=== PATIENT | female | born 1940 | race Caucasian/White ===

== ENCOUNTER 2023-11-11 10:34 | Outpatient (REF) | payer MEDICARE, SELFPAY ==
[2023-11-11 11:47] LABS: INTERNATIONAL NORM RATIO 1.6 (0.9-1.1); Prothrombin Time 19.8 SEC (11.1-13.3)
== END 2023-11-11 10:35 | disposition home or self-care (01) ==
LOC: HO.LAB 10:34
PROVIDERS: Visit Provider Internal Medicine
DX: I27.82 Chronic pulmonary embolism (principal)
CPT/HCPCS: 36415; 85610

== ENCOUNTER 2023-11-25 12:15 | Outpatient (REF) | payer MEDICARE, SELFPAY ==
[2023-11-25 12:51] LABS: INTERNATIONAL NORM RATIO 2.8 (0.9-1.1); Prothrombin Time 33.9 SEC (11.1-13.3)
== END 2023-11-25 12:16 | disposition home or self-care (01) ==
LOC: HO.LABR 12:15
PROVIDERS: Visit Provider Internal Medicine
DX: I27.82 Chronic pulmonary embolism (principal); Z79.01 Long term (current) use of 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
CPT/HCPCS: 36415; 85610

== ENCOUNTER 2023-12-12 06:15 | Outpatient (REF) | payer MEDICARE, SELFPAY ==
[2023-12-12 06:32] LABS: MANUAL DIFF FLAG NO
[2023-12-12 07:10] LABS: Basophils Absolute Auto 0.1 X10*3/uL (0.0-0.2); Basophils Percent Auto 0.8 % (0-2); Eosinophils Absolute Auto 0.2 X10*3/uL (0.0-0.4); Eosinophils Percent Auto 2.8 % (0-4); Hematocrit 47.4 % (37.0-47.0); Hemoglobin 15.8 g/dl (12.0-16.0); Imm Gran Abs Auto 0.02 X10*3/uL (0.00-0.03); Imm Gran Pct Auto 0.3 % (0.0-0.4); Lymphocytes Absolute Auto 2.4 X10*3/uL (1.2-4.9); Lymphocytes Percent Auto 39.7 % (20-40); Mean Corpuscular HGB Conc 33.3 g/dl (31.0-35.0); Mean Corpuscular Hemoglobin 30.6 pg (27.0-33.0); Mean Corpuscular Volume 91.9 fL (80.0-98.0); Mean Platelet Volume 12.8 fL (9.4-12.3); Monocytes Absolute Auto 0.6 X10*3/uL (0.1-1.2); Monocytes Percent Auto 9.3 % (2-11); Neutrophils Absolute Auto 2.9 x10*3/uL (2.0-8.3); Neutrophils Percent Auto 47.1 % (45-73); Platelet Count 194 X10*3/uL (160-400); Red Blood Count 5.16 X10*6/uL (4.20-5.50); Red Cell Distribution Width 13.6 % (11.0-16.0); White Blood Count 6.2 X10*3/uL (4.8-10.8)
[2023-12-12 07:16] LABS: INTERNATIONAL NORM RATIO 1.4 (0.9-1.1); Prothrombin Time 17.2 SEC (11.1-13.3)
[2023-12-12 07:47] LABS: Alanine Aminotransferase 18 U/L (0-31); Albumin Level 4.1 g/dL (3.5-5.0); Alkaline Phosphatase 90 U/L (39-117); Anion Gap 10 (12-20); Aspartate Amino Transferase 27 U/L (5-31); Bilirubin Total 0.7 mg/dL (0.0-1.0); Blood Urea Nitrogen 14 mg/dL (9-16); Calcium 9.3 mg/dL (8.4-10.2); Carbon Dioxide 31 mmol/L (22-29); Chloride 105 mmol/L (96-108); Cholesterol 185 mg/dL (<200); Estimated Glomerular Filt Rate > 60; Glucose Random 91 mg/dL (60-115); HDL Cholesterol 54 mg/dL (>40); LDL Cholesterol Calculated 105 mg/dL (<100); Potassium 4.5 mmol/L (3.3-5.1); Sodium 141 mmol/L (135-145); Total Protein 6.9 g/dL (6.5-8.0); Triglycerides 134 mg/dL (<150)
[2023-12-12 08:03] LABS: Thyroid Stimulating Hormone 1.87 uIU/mL (0.32-4.0)
== END 2023-12-12 06:16 | disposition home or self-care (01) ==
LOC: HO.LAB 06:15
PROVIDERS: Absent Provider Internal Medicine; PCP Family Medicine; Visit Provider Nurse Practitioner
DX: E03.9 Hypothyroidism, unspecified (principal); Z86.711 Personal history of pulmonary embolism; R60.0 Localized edema
CPT/HCPCS: 36415; 80053; 80061; 84443; 85025; 85610

== ENCOUNTER 2023-12-23 10:23 | Outpatient (AMB) | payer MEDICARE, SELFPAY ==
--- NOTE | 2023-12-23 11:03 | MHC.OFFVISCO ---
Intake Intake Visit Reasons: Anticoagulation Employee Relations Representative Required: No Allergies Benzodiazepines Adverse Reaction (Severe, Verified 12/23/23 10:38) Drowsy codeine Adverse Reaction (Severe, Verified 12/23/23 10:38) Drowsy loratadine Adverse Reaction (Mild, Verified 12/23/23 10:38) Nausea Medication List - Last Reconciled 12/23/23 by Chasity Grullon, RN amlodipine 5 mg PO DAILY calcium carb-vit [id number] caps PO DAILY levothyroxine 112 mcg PO DAILY simvastatin 20 mg PO QPM warfarin 5 mg See Protocol PO DAILY Is last menstrual period known: No Post menopausal: Yes Patient : No Anti-Coag Initial Assessment Social Hx Patient Tobacco Use Status: Former Tobacco user Tobacco use type: Cigarette Smoking packs per day: 3 alcohol intake: current Alcohol intake frequency: 0-2 drinks per day Housing: House Housing Other:: lives with son current occupation: [employer] current occupational exposures/hazards: Yes Fall risk assessment: 1 Fall in past year Cardiovascular Hx: HTN Lung Disease HX: DVT/PE Endocrine Hx: Thyroid Disease Musculoskeletal Hx: Arthritis, Osteoporosis and Gout Blood Disorder Hx: Hyperlipidemia Hx: Bladder Disorders Cancer HX: No Psych. Illness/Depression: No Is last menstrual period known: No Post menopausal: Yes Patient : No Surgeries: Pulmonary Thrombo-enarectomy [place] Filter Appendectomy Cholecystectomy Bilat Hand Surgery (for arthritis) Tubal Ligation Anti-Coag. Education Record Teaching Recipient: Patient What is the easiest way to learn: Reading, Listening, Picture and Education Packet Employee Relations Representative Required: No Readiness To Learn: Excellent Teaching Methods: Discussion, Handout, Protocol and Teach Back Response to Teaching: Verbalize Understanding Re-Education needs: Reinforce Content Education Intervention/Brief Description of Teaching 1. Able to state reason for taking Warfarin: Yes 2. Able to state Pain Management techniques: Yes 3. Able to state action of Warfarin.: Yes Able to state current dose, pill color, how and when Warfarin to be taken: Yes Able to identify signs of bleeding &/or clotting: Yes 4. Able to identify need to keep diet consistent in regard to vitamin K intake: Yes Able to state restriction on alcohol: Yes 5. Able to state need for compliance with PT/INR testing: Yes Describes rationale for carrying ID and wearing Medic Alert bracelet: Yes Patient instructed to monitor for excess bruising or signs/symptoms of clotting or bleeding: Yes 6. Able to state that there are drugs that interact with Warfin: Yes 7. Able to state the need to seek medical attention when illness/injury occur.: Yes Describes the need to avoid activities with high risk of injury: Yes 8. Able to state duration of treatment: Yes 9. Demonstrates understanding of notifying all providers of pending dental surgical, or other invasive procedures: Yes 10. Able to state Home Care instructions Questionnaires HAS-BLED Does the patient had uncontrolled Hypertension?: No Does the patient have renal disease?: No Does the patient have liver disease?: No Does the patient have a history of stroke?: No Has the patient had major bleeding or predisposition to bleeding?: No Does the patient have labile INRs?: No Is the patient over 65 years of age?: Yes Is the patient on medications that gives them a predisposition to bleeding?: Yes Does the patient use alcohol?: Yes HAS-BLED Score: 3 CHADSVASC Age: 75 or over Gender: Female Does the patient have a history of CHF?: No Does the patient have a history of Hypertension?: Yes Does the patient have a history of Stroke/TIA/Thromboembolism?: No Does the patient have a history of Vascular Disease (prior [place], PAD or aortic plaque)?: No Does the patient have a history of Diabetes?: No CHADS VACS Score: 4 Tucker Prediction Score Rsk VTE Active Cancer: No Previous VTE, excluding superficial vein thrombosis: Yes Reduced mobility: Yes Already known Thrombophilic Condition: Yes With-in last month Trauma and/or Surgery: No Elderly 70 year or older: Yes Heart and/or Respiratory Failure: No Acute Myocardial infarction and/or Ischemic Stroke: No Acute Infection and/or Rheumatologic Disorder: No Obesity (BMI 30 or greater): No Ongoing Hormonal Treatment: No Score: 10 Tucker Score less than 4; Low Risk of VTE Tucker Score 4 or greater; High Risk of VTE Coding Diagnoses Current use of anticoagulant therapy Z79.01 Results AMB INR Fingerstick AMB INR Fingerstick 3.1 Last Edit by Chasity Grullon RN on 12/23/23 11:41 interface delay Assessment & Plan Assessment & Plan (1) Current use of anticoagulant therapy: Code(s): 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
[2023-12-23 11:42] LABS: Prothrombin Time Whole Bld POC 37.5 sec (11.1-13.5); ~PT, ~INR - Anti Coag Clinic 3.1 (0.9-1.1)
--- NOTE | 2023-12-23 13:31 | MHC.OFFVISCO ---
Intake Intake Visit Reasons: Anticoagulation Verification Rep Required: No Allergies Benzodiazepines Adverse Reaction (Severe, Verified 12/23/23 10:38) Drowsy codeine Adverse Reaction (Severe, Verified 12/23/23 10:38) Drowsy loratadine Adverse Reaction (Mild, Verified 12/23/23 10:38) Nausea Medication List - Last Reconciled 12/23/23 by Chasity Grullon, RN amlodipine 5 mg PO DAILY calcium carb-vit [id number] caps PO DAILY levothyroxine 112 mcg PO DAILY simvastatin 20 mg PO QPM warfarin 5 mg See Protocol PO DAILY Is last menstrual period known: No Post menopausal: Yes Patient : No Nursing Note [facility] to [facility]. 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 She went to [facility] for pulmonary thromboendarterectomy which was a success. Also had IVC filter inserted. She is very familiar with warfarin but educational packet reviewed and given to pt. Initial assessment done with Joann Chaves and Tucker risk assessment tools completed. Pt recently moved to this area from [facility] where she followed [facility]. She now lives with her son. She has another son she cares for. He is developmentally delayed. 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 She travels to [place] once a week and drives herself. Lab draw INR on 12/09/23 was 1.4 and she was dosed by [facility] Today's INR is 3.1 Dose: She will continue the present dose of 2.5mg X 5 days and 5mg X2 days Next visit: 1 week Pt understands instructions with read back done Anti-Coag Initial Assessment Social Hx Patient Tobacco Use Status: Former Tobacco user Tobacco use type: Cigarette Smoking packs per day: 3 alcohol intake: current Alcohol intake frequency: 0-2 drinks per day Housing: House Housing Other:: lives with son, recently moved to this area from [facility] current occupation: has [employer], [facility] and another location in [place] current occupational exposures/hazards: Yes Fall risk assessment: 1 Fall in past year Cardiovascular Hx: HTN Lung Disease HX: DVT/PE Endocrine Hx: Thyroid Disease Musculoskeletal Hx: Arthritis, Osteoporosis and Gout Blood Disorder Hx: Hyperlipidemia Hx: Bladder Disorders Cancer HX: No Psych. Illness/Depression: No Is last menstrual period known: No Post menopausal: Yes Patient : No Surgeries: Pulmonary Thromboendarterectomy [place] filter Appendectomy Cholecystectomy Bilat Hand Surgery R/T arthritis Tubal Ligation Anti-Coag. Education Record Teaching Recipient: Patient What is the easiest way to learn: Reading, Listening, Picture, Demonstration, Education Packet and Other: Barriers to Learning Identified: Physical Physical: Vision If Barriers are identified, describe method to overcome: wears glasses Verification Rep Required: No Readiness To Learn: Excellent Teaching Methods: Discussion, Handout, Protocol and Teach Back Response to Teaching: Verbalize Understanding Re-Education needs: Reinforce Content Education Intervention/Brief Description of Teaching 1. Able to state reason for taking Warfarin: Yes 2. Able to state Pain Management techniques: Yes 3. Able to state action of Warfarin.: Yes Able to state current dose, pill color, how and when Warfarin to be taken: Yes Able to identify signs of bleeding &/or clotting: Yes 4. Able to identify need to keep diet consistent in regard to vitamin K intake: Yes Able to state restriction on alcohol: Yes 5. Able to state need for compliance with PT/INR testing: Yes Describes rationale for carrying ID and wearing Medic Alert bracelet: Yes Patient instructed to monitor for excess bruising or signs/symptoms of clotting or bleeding: Yes 6. Able to state that there are drugs that interact with Warfin: Yes 7. Able to state the need to seek medical attention when illness/injury occur.: Yes Describes the need to avoid activities with high risk of injury: Yes 8. Able to state duration of treatment: Yes 9. Demonstrates understanding of notifying all providers of pending dental surgical, or other invasive procedures: Yes 10. Able to state Home Care instructions Questionnaires HAS-BLED Does the patient had uncontrolled Hypertension?: No Does the patient have renal disease?: No Does the patient have liver disease?: No Does the patient have a history of stroke?: No Has the patient had major bleeding or predisposition to bleeding?: No Does the patient have labile INRs?: No Is the patient over 65 years of age?: Yes Is the patient on medications that gives them a predisposition to bleeding?: Yes Does the patient use alcohol?: Yes HAS-BLED Score: 3 CHADSVASC Age: 75 or over Gender: Female Does the patient have a history of CHF?: No Does the patient have a history of Hypertension?: Yes Does the patient have a history of Stroke/TIA/Thromboembolism?: No Does the patient have a history of Vascular Disease (prior [place], PAD or aortic plaque)?: No Does the patient have a history of Diabetes?: No CHADS VACS Score: 4 Tucker Prediction Score Rsk VTE Active Cancer: No Previous VTE, excluding superficial vein thrombosis: Yes Reduced mobility: No Already known Thrombophilic Condition: Yes With-in last month Trauma and/or Surgery: No Elderly 70 year or older: Yes Heart and/or Respiratory Failure: No Acute Myocardial infarction and/or Ischemic Stroke: No Acute Infection and/or Rheumatologic Disorder: No Obesity (BMI 30 or greater): No Ongoing Hormonal Treatment: No Score: 7 Tucker Score less than 4; Low Risk of VTE Tucker Score 4 or greater; High Risk of VTE Coding Level of Care Code New Patient Level 2 Diagnoses Current use of anticoagulant therapy Z79.01 Results AMB INR Fingerstick AMB INR Fingerstick 3.1 Last Edit by Chasity Grullon RN on 12/23/23 11:41 interface delay Assessment & Plan Assessment & Plan (1) Current use of anticoagulant therapy: Code(s): 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
== END 2023-12-23 13:57 | disposition home or self-care (01) ==
LOC: HO.ACS 10:23
PROVIDERS: PCP Family Medicine; Visit Provider Internal Medicine
DX: Z79.01 Long term (current) use of 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 (principal)

== ENCOUNTER → 2023-12-23 10:23 | Outpatient (BNVA) | payer MEDICARE, SELFPAY | PROVIDERS: PCP Family Medicine; Visit Provider Internal Medicine | DX: I26.99 Other pulmonary embolism without acute cor pulmonale (principal); Z79.01 Long term (current) use of 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; Z51.81 Encounter for therapeutic drug level monitoring | CPT/HCPCS: 85610; 99202 ==

== ENCOUNTER 2023-12-31 10:35 | Outpatient (AMB) | payer MEDICARE, SELFPAY ==
[2023-12-31 10:47] LABS: Prothrombin Time Whole Bld POC 27.4 sec (11.1-13.5); ~PT, ~INR - Anti Coag Clinic 2.3 (0.9-1.1)
--- NOTE | 2023-12-31 10:54 | MHC.OFFVISCO ---
Intake Intake Visit Reasons: Anticoagulation Allergies Benzodiazepines Adverse Reaction (Severe, Verified 12/31/23 10:41) Drowsy codeine Adverse Reaction (Severe, Verified 12/31/23 10:41) Drowsy loratadine Adverse Reaction (Mild, Verified 12/31/23 10:41) Nausea Medication List - Last Reconciled 12/31/23 by Aleshia Bradley RN amlodipine 5 mg PO DAILY calcium carb-vit [id number] caps PO DAILY levothyroxine 112 mcg PO DAILY simvastatin 20 mg PO QPM warfarin 5 mg See Protocol PO DAILY Nursing Note INR: 2.3 in therapeutic range Medications and supplements reviewed No changes in health, diet, medications, or supplements, Denies any signs and symptoms of bleeding or bruising or clotting. Bleeding, bruising, clotting discussed Nutritional guidance given Dose: KEEP SAME DOSE 5MG X 2 DAYS/ 2.5MG X 5 DAYS F/U INR: 3 WEEKS Patient verbalizes understanding of instructions given Anti-Coag Initial Assessment Social Hx Patient Tobacco Use Status: Former Tobacco user Tobacco use type: Cigarette Smoking packs per day: 3 alcohol intake: current Alcohol intake frequency: 0-2 drinks per day Cardiovascular Hx: HTN Lung Disease HX: DVT/PE Endocrine Hx: Thyroid Disease Musculoskeletal Hx: Arthritis, Osteoporosis and Gout Blood Disorder Hx: Hyperlipidemia Hx: Bladder Disorders Cancer HX: No Psych. 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
== END 2023-12-31 10:57 | disposition home or self-care (01) ==
LOC: HO.ACS 10:35
PROVIDERS: PCP Family Medicine; Visit Provider Internal Medicine
DX: Z79.01 Long term (current) use of 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 (principal)

== ENCOUNTER → 2023-12-31 10:35 | Outpatient (BNVA) | payer MEDICARE, SELFPAY | PROVIDERS: PCP Family Medicine; Visit Provider Internal Medicine | DX: I26.99 Other pulmonary embolism without acute cor pulmonale (principal); Z79.01 Long term (current) use of 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; Z51.81 Encounter for therapeutic drug level monitoring | CPT/HCPCS: 85610; 99211 ==

== ENCOUNTER 2024-01-20 10:06 | Outpatient (AMB) | payer MEDICARE, SELFPAY ==
--- NOTE | 2024-01-20 10:23 | MHC.OFFVISCO ---
Intake Intake Visit Reasons: Anticoagulation Allergies Benzodiazepines Adverse Reaction (Severe, Verified 01/20/24 10:18) Drowsy codeine Adverse Reaction (Severe, Verified 01/20/24 10:18) Drowsy loratadine Adverse Reaction (Mild, Verified 01/20/24 10:18) Nausea Medication List - Last Reconciled 01/20/24 by Katie Mao, RN amlodipine 5 mg PO DAILY calcium carb-vit [id number] caps PO DAILY levothyroxine 112 mcg PO DAILY simvastatin 20 mg PO QPM warfarin 5 mg See Protocol PO DAILY Nursing Note INR: 2.3- in therapeutic range of 2-3 Medications and supplements reviewed- no changes No changes in health, diet, medications, or supplements, Denies any signs and symptoms of bleeding or bruising or clotting. Bleeding, bruising, clotting discussed Nutritional guidance given Dose: 5mg x 2, 2.5mg x 5 F/U INR: 4 weeks Patient verbalizes understanding of instructions given pt states has been on warfarin for approx 31 years Anti-Coag Initial Assessment Social Hx Patient Tobacco Use Status: Former Tobacco user Tobacco use type: Cigarette Smoking packs per day: 3 alcohol intake: current Alcohol intake frequency: 0-2 drinks per day Cardiovascular Hx: HTN Lung Disease HX: DVT/PE Endocrine Hx: Thyroid Disease Musculoskeletal Hx: Arthritis, Osteoporosis and Gout Blood Disorder Hx: Hyperlipidemia Hx: Bladder Disorders Cancer HX: No Psych. 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
[2024-01-20 10:24] LABS: Prothrombin Time Whole Bld POC 27.6 sec (11.1-13.5); ~PT, ~INR - Anti Coag Clinic 2.3 (0.9-1.1)
== END 2024-01-20 10:44 | disposition home or self-care (01) ==
LOC: HO.ACS 10:06
PROVIDERS: PCP Family Medicine; Visit Provider Internal Medicine
DX: Z79.01 Long term (current) use of 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 (principal)

== ENCOUNTER → 2024-01-20 10:06 | Outpatient (BNVA) | payer MEDICARE, SELFPAY | PROVIDERS: PCP Family Medicine; Visit Provider Internal Medicine | DX: I26.99 Other pulmonary embolism without acute cor pulmonale (principal); Z79.01 Long term (current) use of 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; Z51.81 Encounter for therapeutic drug level monitoring | CPT/HCPCS: 85610; 99211 ==

== ENCOUNTER 2024-02-17 10:18 | Outpatient (AMB) | payer MEDICARE, SELFPAY ==
[2024-02-17 10:29] LABS: Prothrombin Time Whole Bld POC 31.8 sec (11.1-13.5); ~PT, ~INR - Anti Coag Clinic 2.7 (0.9-1.1)
--- NOTE | 2024-02-17 10:34 | MHC.OFFVISCO ---
Intake Intake Visit Reasons: Anticoagulation Allergies Benzodiazepines Adverse Reaction (Severe, Verified 02/17/24 10:22) Drowsy codeine Adverse Reaction (Severe, Verified 02/17/24 10:22) Drowsy loratadine Adverse Reaction (Mild, Verified 02/17/24 10:22) Nausea Medication List - Last Reconciled 02/17/24 by Aleshia Bradley RN amlodipine 5 mg PO DAILY calcium carb-vit [id number]-[id number] caps PO DAILY estradiol 0.01%(0.1mg/gram) vaginal levothyroxine 112 mcg PO DAILY simvastatin 20 mg PO QPM warfarin 5 mg See Protocol PO DAILY Nursing Note INR: 2.7 in therapeutic range Medications and supplements reviewed No changes in health, diet, medications, or supplements, Denies any signs and symptoms of bleeding or bruising or clotting. Bleeding, bruising, clotting discussed Nutritional guidance given Dose: 5MG X 2 DAYS/ 2.6MG F/U INR: 1 MONTH Patient verbalizes understanding of instructions given Anti-Coag Initial Assessment Social Hx Patient Tobacco Use Status: Former Tobacco user Tobacco use type: Cigarette Smoking packs per day: 3 alcohol intake: current Alcohol intake frequency: 0-2 drinks per day Cardiovascular Hx: HTN Lung Disease HX: DVT/PE Endocrine Hx: Thyroid Disease Musculoskeletal Hx: Arthritis, Osteoporosis and Gout Blood Disorder Hx: Hyperlipidemia Hx: Bladder Disorders Cancer HX: No Psych. Illness/Depression: No Coding Level of Care Code Est Patient Level 1 Diagnoses Current use of anticoagulant therapy Z79.01 Assessment & Plan Assessment & Plan (1) Current use of anticoagulant therapy: Code(s): Z79.01 - retirement (current) use of 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 Category: Medical
== END 2024-02-17 10:36 | disposition home or self-care (01) ==
LOC: HO.ACS 10:18
PROVIDERS: PCP Family Medicine; Visit Provider Internal Medicine
DX: Z79.01 Long term (current) use of 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 (principal)

== ENCOUNTER → 2024-02-17 10:18 | Outpatient (BNVA) | payer MEDICARE, SELFPAY | PROVIDERS: PCP Family Medicine; Visit Provider Internal Medicine | DX: I26.99 Other pulmonary embolism without acute cor pulmonale (principal); Z79.01 Long term (current) use of 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; Z51.81 Encounter for therapeutic drug level monitoring | CPT/HCPCS: 85610; 99211 ==

== ENCOUNTER 2024-02-24 10:44 | Outpatient (AMB) | payer MEDICARE, SELFPAY ==
--- NOTE | 2024-02-24 10:47 | MHC.OFFVIS ---
Vital Signs 02/24/24 10:51 Height 5 ft 4 in Weight 145 lb BMI 24.9 BP 136/84 Blood Pressure Location Lt brachial Position Sitting Intake Visit Reasons: Pessary Maintenance Allergies Benzodiazepines Adverse Reaction (Severe, Verified 02/24/24 10:53) Drowsy codeine Adverse Reaction (Severe, Verified 02/24/24 10:53) Drowsy loratadine Adverse Reaction (Mild, Verified 02/24/24 10:53) Nausea HPI Comments Details: The patient is presenting for pessary check complaining of vaginal discharge with no bleeding. The pessary did not slip out. [facility] Social History Housing: House Housing Other:: lives with son, recently moved to this area from [facility] Alcohol intake: current Alcohol intake frequency: 0-2 drinks per day Patient Tobacco Use Status: Former Tobacco user Tobacco use type: Cigarette Cigarette Packs Per Day: 3 Current occupation: has [employer], [employer] and another location in [place] Current occupational exposures/hazards: Yes Review of Systems Const All systems reviewed & are unremarkable except as noted in HPI and below Physical Exam Vital Signs: Last Vital Signs BP 136/84 02/24/24 10:51 BMI result Body Mass Index 24.9 Other: Pessary was taken out General: Yes no CVA tenderness External Female Exam: normal external appearance and normal appearance of the urethra Speculum Exam - Vagina: normal palpation, no lesions, no masses and other (Left vaginal wall abrasion) Speculum Exam - Cervix: normal appearance of the cervix, normal palpation, no lesions, no masses, nontender and Other cervical findings present (Abrasion of the cervix) Bimanual exam- vagina & uterus: normal bimanual exam, normal palpation, uterine size normal, normal palpation, uterine shape normal, No Cervical tenderness present and non-tender Bimanual Exam- Adnexa, other: normal adnexae Back/Spine/Pelvis Back: no CVA tenderness Assessment & Plan Assessment & Plan (1) Cervical abrasion: Comment: And left vaginal Code(s): S37.69XA - Other injury of uterus, initial encounter Category: Medical Plan: Discussed with the patient the finding on pelvic exam showing cervical and left vaginal wall abrasion secondary to pessary . The pessary was taken out and left up, recommended the patient to follow up in 6 weeks for reinspection and possible pessary reinsertion. Instructions given the patient to call in case of vaginal discharge, pain or bleeding. All questions answered, the patient verbalized understanding Coding Level of Care Code New Pt Level 3 (71487) Diagnoses Cervical abrasion S37.69XA
[2024-02-24 10:51] VITALS: BP 136/84; BMI 24.9
== END 2024-02-24 11:24 | disposition home or self-care (01) ==
PROVIDERS: PCP Family Medicine; Visit Provider Obstetrics & Gynecology
DX: S37.69XA Other injury of uterus, initial encounter (principal)
CPT/HCPCS: 99203

== ENCOUNTER → 2024-02-24 10:44 | Outpatient (BNVA) | payer MEDICARE, SELFPAY | PROVIDERS: PCP Family Medicine; Visit Provider Obstetrics & Gynecology | DX: N89.8 Other specified noninflammatory disorders of vagina (principal); S37.69XA Other injury of uterus, initial encounter; X58.XXXA Exposure to other specified factors, initial encounter; Y93.9 Activity, unspecified; Y92.9 Unspecified place or not applicable; Y99.9 Unspecified external cause status; Z46.6 Encounter for fitting and adjustment of urinary device | CPT/HCPCS: 99202 ==

== ENCOUNTER 2024-03-03 08:03 | Outpatient (AMB) | payer MEDICARE, SELFPAY ==
--- NOTE | 2024-03-03 08:05 | MHC.OFFVIS ---
Vital Signs 03/03/24 08:06 Height 5 ft 4 in Weight 145 lb BMI 24.9 BP 130/76 Blood Pressure Location Lt brachial Position Sitting Intake Visit Reasons: vaginal pain, bleeding, discharge with odor Allergies Benzodiazepines Adverse Reaction (Severe, Verified 03/03/24 08:07) Drowsy codeine Adverse Reaction (Severe, Verified 03/03/24 08:07) Drowsy loratadine Adverse Reaction (Mild, Verified 03/03/24 08:07) Nausea HPI Comments Details: Presenting complaining of vaginal and pelvic infection associated with vaginal bleeding and discharge, foul odor and urinary frequency. Her symptoms after removal of the vaginal pessary secondary to vaginal abrasion. No fever or chills no nausea or vomiting [facility] Social History Housing: House Housing Other:: lives with son, recently moved to this area from [facility] Alcohol intake: current Alcohol intake frequency: 0-2 drinks per day Patient Tobacco Use Status: Former Tobacco user Tobacco use type: Cigarette Cigarette Packs Per Day: 3 Current occupation: has [employer], [facility] and another location in [place] Current occupational exposures/hazards: Yes Review of Systems Const All systems reviewed & are unremarkable except as noted in HPI and below Physical Exam Vital Signs: Last Vital Signs BP 130/76 03/03/24 08:06 BMI result Body Mass Index 24.9 General: Yes no CVA tenderness External Female Exam: normal external appearance and normal appearance of the urethra Speculum Exam - Vagina: normal appearance of the vagina, normal palpation, no lesions, no masses and other (Vaginal abrasions infected) Speculum Exam - Cervix: normal appearance of the cervix, normal palpation, no lesions, no masses, Cervical tenderness present and Other cervical findings present (Cervical abrasion in factors) Bimanual exam- vagina & uterus: normal bimanual exam, normal palpation, uterine size normal, normal palpation, uterine shape normal, Cervical tenderness present, cervical motion tenderness and enlarged Bimanual Exam- Adnexa, other: normal adnexae Back/Spine/Pelvis Back: no CVA tenderness Results AMB Urinalysis, Automated UA Leukoctes 500 Morgan/uL Last Edit by Joelle Pang CMA on 03/03/24 08:18 UA Nitrite Negative Last Edit by Joelle Pang CMA on 03/03/24 08:18 UA Urobilinogen 0 mg/dL Last Edit by Joelle Pang CMA on 03/03/24 08:18 UA Protein 1 mg/dL Last Edit by Joelle Pang CMA on 03/03/24 08:18 UA pH 6.0 Last Edit by Joelle Pang CMA on 03/03/24 08:18 UA Blood 200 Bulmaro/uL Last Edit by Joelle Pang CMA on 03/03/24 08:18 UA Specific [place] 1.015 Last Edit by Joelle Pang CMA on 03/03/24 08:18 UA Ketone Negative Last Edit by Joelle Pang CMA on 03/03/24 08:18 UA Bilirubin 0 mg/dL Last Edit by Joelle Pang CMA on 03/03/24 08:18 UA Glucose 0 mg/dL Last Edit by Joelle Pang CMA on 03/03/24 08:18 Results Reviewed Results Reviewed: Laboratory Last Values Urine pH (Auto) 6.0 03/03/24 08:17 Specific [place] (Auto) 1.015 03/03/24 08:17 Urine Protein (Auto) 1 mg/dL 03/03/24 08:17 Glucose (UA)(Auto) 0 mg/dL 03/03/24 08:17 Urine Ketones (Auto) Negative 03/03/24 08:17 Urine Blood (Auto) 200 Bulmaro/uL 03/03/24 08:17 Urine Nitrite (Auto) Negative 03/03/24 08:17 Urine Bilirubin (Auto) 0 mg/dL 03/03/24 08:17 Urine Urobilinogen (Auto) 0 mg/dL 03/03/24 08:17 Leukocyte Esterase (Auto) 500 Morgan/uL 03/03/24 08:17 Assessment & Plan Assessment & Plan (1) Cervical abrasion: Comment: And left vaginal infected with ascending pelvic infection Code(s): S37.69XA - Other injury of uterus, initial encounter Category: Medical Plan: Urine dip done in the office showed blood and leukocytes. Urine culture sent. GC/CT with BV panel collected will treat with ceftriaxone 500 mg IM and doxycycline 100 mg p.o. b.i.d. and Flagyl 500 mg p.o. b.i.d. for 14 days because of possibility of ascending endometritis. Pelvic ultrasound ordered . Explained to the patient the metronidazole can increase the affect of Coumadin therefore PT INR ordered on 03/05 and 03/09 to monitor PT INR. Instructions given the patient to call in case of fever above 100.4 worsening or persistence of her pain for the coming 48 hours, nausea or vomiting. All questions answered, the patient verbalized understanding (2) Vaginal bleeding: Code(s): N93.9 - Abnormal uterine and vaginal bleeding, unspecified Category: Medical Plan: Discussed with the patient differential diagnosis of vaginal bleeding including vaginal abrasion or uterine bleeding. Will treat with antibiotics and order pelvic ultrasound to measure endometrial thickness. Orders: Orders US pelvic and transvaginal Today N93.9 - Abnormal uterine and vaginal bleeding, unspecified CT NG by PCR Today N93.9 - Abnormal uterine and vaginal bleeding, unspecified Bacterial Vaginosis Panel Today N93.9 - Abnormal uterine and vaginal bleeding, unspecified Urine Culture Today N93.9 - Abnormal uterine and vaginal bleeding, unspecified ~PT, ~INR - [facility] 03/05/24 S37.69XA - Other injury of uterus, initial encounter ~PT, ~INR - [facility]ag Clinic 03/09/24 S37.69XA - Other injury of uterus, initial encounter AMB Urinalysis Automated Today Z13.9 - Encounter for screening, unspecified AMB Ceftriaxone Injection Today S37.69XA - Other injury of uterus, initial encounter Medications: New ceftriaxone 500 mg IM ONCE 1 ea 0RF Endometritis S37.69XA - Other injury of uterus, initial encounter metronidazole 500 mg PO BID 14 days 28 tabs 0RF doxycycline hyclate 100 mg PO BID 14 days 28 caps 0RF Coding Level of Care Code Est Pt Level 3 (92391) Diagnoses Cervical abrasion S37.69XA Vaginal bleeding N93.9
[2024-03-03 08:06] VITALS: BP 130/76; BMI 24.9
== END 2024-03-03 09:01 | disposition home or self-care (01) ==
LOC: HO.HWS 08:03
PROVIDERS: PCP Family Medicine; Visit Provider Obstetrics & Gynecology
DX: S37.69XA Other injury of uterus, initial encounter (principal); N93.9 Abnormal uterine and vaginal bleeding, unspecified; Z13.9 Encounter for screening, unspecified
CPT/HCPCS: 99213

== ENCOUNTER 2024-03-03 08:03 | Outpatient (REF) | payer MEDICARE, SELFPAY ==
[2024-03-03 17:59] LABS: Bacterial Vaginosis PCR NEGATIVE (Negative); Candida Group PCR NOT DETECTED (Not Detect); Candida glab krusei PCR NOT DETECTED (Not Detect); Trichomonas vaginalis PCR NOT DETECTED (Not Detect)
[2024-03-03 18:29] LABS: CT PCR NOT DETECTED (Not Detect.); NG PCR NOT DETECTED (Not Detect.)
== END 2024-03-03 08:04 | disposition home or self-care (01) ==
LOC: HO.LNP 08:03
PROVIDERS: PCP Family Medicine; Visit Provider Obstetrics & Gynecology
DX: N93.9 Abnormal uterine and vaginal bleeding, unspecified (principal); S37.69 Other injury of uterus; R82.90 Unspecified abnormal findings in urine; Z20.2 Contact with and (suspected) exposure to infections with a predominantly sexual mode of transmission
CPT/HCPCS: 0352U; 81003; 87086; 87088; 87186; 87491; 87591; 96372; 99212; J0696

== ENCOUNTER 2024-03-03 08:32 | Outpatient (REF) | payer MEDICARE, SELFPAY | END 2024-03-03 08:33 | disposition home or self-care (01) | LOC: HO.LAB 08:32 | PROVIDERS: Visit Provider Obstetrics & Gynecology | DX: Z13.89 Encounter for screening for other disorder (principal) ==

== ENCOUNTER 2024-03-04 14:15 | Outpatient (AMB) | payer MEDICARE, SELFPAY ==
[2024-03-04 14:28] LABS: Prothrombin Time Whole Bld POC 45.9 sec (11.1-13.5); ~PT, ~INR - Anti Coag Clinic 3.8 (0.9-1.1)
--- NOTE | 2024-03-04 14:33 | MHC.OFFVISCO ---
Intake Intake Visit Reasons: Anticoagulation Allergies Benzodiazepines Adverse Reaction (Severe, Verified 03/04/24 14:20) Drowsy codeine Adverse Reaction (Severe, Verified 03/04/24 14:20) Drowsy loratadine Adverse Reaction (Mild, Verified 03/04/24 14:20) Nausea Medication List - Last Reconciled 03/04/24 by Chasity Babcock, RN amlodipine 5 mg PO DAILY calcium carb-vit P6-[id number]-mnrihxm caps PO DAILY doxycycline hyclate 100 mg PO BID 14 days estradiol 0.01%(0.1mg/gram) vaginal levothyroxine 112 mcg PO DAILY metronidazole 500 mg PO BID 14 days nitrofurantoin monohyd/m-cryst 100 mg (Macrobid) 100 mg PO BID 5 days simvastatin 20 mg PO QPM warfarin 5 mg See Protocol PO DAILY Nursing Note Amb to ACS - see previous composed notes- pt has started on Doxycycline, Flagyl, and to start on Macrobid today PT HAS ACTIVE RED VAGINAL BLEEDING S/P PESSARY REMOVAL 03/03 denies any dizziness, color is pale pink, lips and nailbeds pink Medications and supplements reviewed No other changes in health, diet, medications, or supplements, Denies any other signs and symptoms of bleeding or bruising or clotting. (active vaginal bleeding per pt and Dr Poe aware) Bleeding, bruising, clotting discussed pt also instructed if any dizziness, increase in bleeding, lie down, elevate legs, cold pack to abd, have someone else mary kate 911 INR 3.8 above therapeutic range Dose: hold warfarin today and tomorrow (2.5mg each day) secondary to elevated INR, active vaginal bleeding, and medications on board that can raise INR ok for greens but instructions to not go overboard with heavy duty greens today or tomorrow pt going for vaginal ultrasound after this visit F/U INR: SaturdayMarch 06 Patient verbalizes understanding of instructions given Anti-Coag Initial Assessment Social Hx Patient Tobacco Use Status: Former Tobacco user Tobacco use type: Cigarette Smoking packs per day: 3 alcohol intake: current Alcohol intake frequency: 0-2 drinks per day Cardiovascular Hx: HTN Lung Disease HX: DVT/PE Endocrine Hx: Thyroid Disease Musculoskeletal Hx: Arthritis, Osteoporosis and Gout Blood Disorder Hx: Hyperlipidemia Hx: Bladder Disorders Cancer HX: No Psych. Illness/Depression: No Coding Level of Care Code Est Patient Level 1 Diagnoses Current use of anticoagulant therapy Z79.01 Time Spent (min) 15 Assessment & Plan Assessment & Plan (1) Current use of anticoagulant therapy: Code(s): Z79.01 - assisted (current) use of 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 Category: Medical
== END 2024-03-04 14:58 | disposition home or self-care (01) ==
LOC: HO.ACS 14:15
PROVIDERS: PCP Family Medicine; Visit Provider Internal Medicine
DX: Z79.01 Long term (current) use of 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 (principal)

== ENCOUNTER 2024-03-04 14:41 | Outpatient (REF) | payer MEDICARE, SELFPAY ==
--- NOTE | ~2024-03-04 | US_ITS ---
EXAMINATION:US PELVIS TRANSABDOMINAL AND TRANSVAGINAL CLINICAL INFORMATION: N93.9 - Abnormal uterine and vaginal bleeding, unspecified COMPARISON: No priors available. LMP: Postmenopausal FINDINGS: UTERUS: The uterus is anteverted. Size: 6.3 x 3.1 x 4.6 cm. Uterine mass: There is no uterine mass. Cervix: Grossly unremarkable. Endometrium: endometrial thickness measures 6 mm fluid within the endometrial canal, these are abnormal for patient's age and postmenopausal status, cannot rule out underlying occult lesion. ADNEXA: Ovaries not visualized might have been obscured by bowel gas FREE FLUID: Trace amount of free fluid. OTHER FINDINGS: None US/US pelvic and transvaginal IMPRESSION: 1. There is fluid within the endometrial canal, borderline thickened endometrium measure up to 6 mm these are abnormal for patient's age and postmenopausal status, cannot rule out underlying occult lesion. Attention to follow-up recommended. 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 2. Ovaries not visualized might have been obscured by bowel gas. Electronically signed by: Ruddy López MD 04/25/2024 03:08 PM SEJAL
== END 2024-03-04 14:42 | disposition home or self-care (01) ==
LOC: HO.US 14:41
PROVIDERS: PCP Family Medicine; Visit Provider Obstetrics & Gynecology
DX: N93.9 Abnormal uterine and vaginal bleeding, unspecified (principal); Z79.01 Long term (current) use of 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
CPT/HCPCS: 76830; 76856; 85610; 99211

== ENCOUNTER 2024-03-06 08:30 | Outpatient (AMB) | payer MEDICARE, SELFPAY ==
--- NOTE | 2024-03-06 08:48 | MHC.OFFVISCO ---
Intake Intake Visit Reasons: Anticoagulation Allergies Benzodiazepines Adverse Reaction (Severe, Verified 03/06/24 08:37) Drowsy codeine Adverse Reaction (Severe, Verified 03/06/24 08:37) Drowsy loratadine Adverse Reaction (Mild, Verified 03/06/24 08:37) Nausea Medication List - Last Reconciled 03/06/24 by Chasity Babcock RN amlodipine 5 mg PO DAILY calcium carb-vit P8-[id number]-[id number] caps PO DAILY doxycycline hyclate 100 mg PO BID 14 days estradiol 0.01%(0.1mg/gram) vaginal levothyroxine 112 mcg PO DAILY metronidazole 500 mg PO BID 14 days nitrofurantoin monohyd/m-cryst 100 mg (Macrobid) 100 mg PO BID 5 days simvastatin 20 mg PO QPM warfarin 5 mg See Protocol PO DAILY Nursing Note Amb to [facility] sts feeling better than Saturday Medications and supplements reviewed No new changes in health, diet, medications, or supplements, is on Doxycycline and Flagyl and she has been taking dayquil and nyquil for lingering cold symptoms x 1 week sts vaginal bleeding now just spotting now, no clots sts she didn't notice any clotting with earlier vaginal bleeding Denies any new signs and symptoms of bleeding or bruising or clotting. INR 1.6 now below range after 2 day hold of warfarin ( prev INR 3.8, vaginal bleeding, antibiotics) Dose: pt will resume usual dosing warfarin 5mg today and 2.5mg over weekend Nutritional guidance given no greens today and tomorrow (sts she did have some broccoli as instructed over last 2 days) delicate balance as antibiotics will cause an increase in INR F/U INR: Friday 03/09 Patient verbalizes understanding of instructions given Anti-Coag Initial Assessment Social Hx Patient Tobacco Use Status: Former Tobacco user Tobacco use type: Cigarette Smoking packs per day: 3 alcohol intake: current Alcohol intake frequency: 0-2 drinks per day Cardiovascular Hx: HTN Lung Disease HX: DVT/PE Endocrine Hx: Thyroid Disease Musculoskeletal Hx: Arthritis, Osteoporosis and Gout Blood Disorder Hx: Hyperlipidemia Hx: Bladder Disorders Cancer HX: No Psych. 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
[2024-03-06 09:05] LABS: Prothrombin Time Whole Bld POC 18.8 sec (11.1-13.5); ~PT, ~INR - Anti Coag Clinic 1.6 (0.9-1.1)
== END 2024-03-06 09:26 | disposition home or self-care (01) ==
LOC: HO.ACS 08:30
PROVIDERS: PCP Family Medicine; Visit Provider Internal Medicine
DX: Z79.01 Long term (current) use of 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 (principal)

== ENCOUNTER → 2024-03-06 08:30 | Outpatient (BNVA) | payer MEDICARE, SELFPAY | PROVIDERS: PCP Family Medicine; Visit Provider Internal Medicine | DX: I26.99 Other pulmonary embolism without acute cor pulmonale (principal); Z79.01 Long term (current) use of 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; Z51.81 Encounter for therapeutic drug level monitoring | CPT/HCPCS: 85610; 99211 ==

== ENCOUNTER 2024-03-09 08:05 | Outpatient (AMB) | payer MEDICARE, SELFPAY ==
--- NOTE | 2024-03-09 08:20 | MHC.OFFVIS ---
Vital Signs 03/09/24 08:25 Height 5 ft 4 in Weight 143 lb 4.807 oz BMI 24.6 Intake Visit Reasons: Follow up cervical abrasion Car Escort Required: No Information Interpreted: non-clinical & clinical Process Design Chemical Engineer: Process Design Chemical Engineer Present ([employer]yn[employer] [place]) Accompanied by: Self / Same As Patient Allergies Benzodiazepines Adverse Reaction (Severe, Verified 03/09/24 08:27) Drowsy codeine Adverse Reaction (Severe, Verified 03/09/24 08:27) Drowsy loratadine Adverse Reaction (Mild, Verified 03/09/24 08:27) Nausea Post menopausal: Yes HPI Comments Details: Presenting for follow-up post endometritis. The patient's pelvic pain has resolved completely, with the patient is complaining of diarrhea us over the last 4 days 3 episodes a day with no blood per stools., no fever or chills no abdominal distention. Pelvic ultrasound done no official report available yet, endometrial stripe measures 6 mm with endometrial fluid PFSH Social History Housing: House Housing Other:: lives with son, recently moved to this area from [facility] Alcohol intake: current Alcohol intake frequency: 0-2 drinks per day Patient Tobacco Use Status: Former Tobacco user Tobacco use type: Cigarette Cigarette Packs Per Day: 3 Current occupation: has [employer] business, [facility] and another location in [place] Current occupational exposures/hazards: Yes Review of Systems Const All systems reviewed & are unremarkable except as noted in HPI and below Reports as per HPI and Reports no additional complaints GI Reports no additional complaints Reports no additional complaints Physical Exam Vital Signs: BMI result Body Mass Index 24.6 GI Palpation (GI): Soft to palpation and nontender Assessment & Plan Assessment & Plan (1) Cervical abrasion: Comment: And left vaginal infected with ascending pelvic infection Code(s): S37.69XA - Other injury of uterus, initial encounter Category: Medical Plan: Instructions given the patient to discontinue antibiotics immediately. (2) Diarrhea: Code(s): R19.7 - Diarrhea, unspecified Category: Medical Plan: Instructions given the patient to discontinue antibiotics immediately, will order stool for C diff and treat accordingly. Instructions given the patient to schedule a follow-up appointment tomorrow. Instructions given the patient to call or go to emergency in case of abdominal pain, fever, bloody diarrhea. All questions answered, the patient verbalized understanding (3) Thickened endometrium: Code(s): R93.89 - Abnormal findings on diagnostic imaging of other specified body structures Category: Medical Plan: Discussed with the patient the pelvic ultrasound findings, the endometrial stripe thickenss measured by ultrasound was more than 4mm with endometrial fluid. The negative predictive value, positive predictive value, Sensitivity, specificity of using ultrasound measurement of endometrial stripe to detecting endometrial pathology including hyperplasia , polyp or cancer were discussed with the patient. Recommended to the patient that the next step is an endometrial sampling via hysteroscopy D&C possible polypectomy versus endometrial biopsy to r/o endometrial pathology including hyperplasia or cancer. All the pros and cons risks and benefits of each approach were discussed with the patient, endometrial biopsy being less invasive, office procedure with less sensitivity and inability diagnose a polyp and removal versus hysteroscopy done under anesthesia more invasive more sensitive to endometrial cancer and possibility of diagnosing and endometrial polyp with the possibility of polypectomy. All questions were answered pt verbalized understanding and decided to proceed with endometrial biopsy. Instructions given the patient to schedule EMB within 2 weeks. Orders: Orders CDiff Gene PCR Today R19.7 - Diarrhea, unspecified Coding Level of Care Code Est Pt Level 3 (82887) Diagnoses Cervical abrasion S37.69XA Diarrhea R19.7 Thickened endometrium R93.89
[2024-03-09 08:25] VITALS: BMI 24.6
== END 2024-03-09 09:17 | disposition home or self-care (01) ==
LOC: HO.HWS 08:05
PROVIDERS: PCP Family Medicine; Visit Provider Obstetrics & Gynecology
DX: S37.69XA Other injury of uterus, initial encounter (principal); R19.7 Diarrhea, unspecified; R93.89 Abnormal findings on diagnostic imaging of other specified body structures
CPT/HCPCS: 99213

== ENCOUNTER → 2024-03-09 08:05 | Outpatient (BNVA) | payer MEDICARE, SELFPAY | PROVIDERS: PCP Family Medicine; Visit Provider Obstetrics & Gynecology | DX: S37.69 Other injury of uterus (principal); R19.7 Diarrhea, unspecified; R93.89 Abnormal findings on diagnostic imaging of other specified body structures | CPT/HCPCS: 85610; 99212 ==

== ENCOUNTER 2024-03-09 08:58 | Outpatient (AMB) | payer MEDICARE, SELFPAY ==
[2024-03-09 09:17] LABS: ~PT, ~INR - Anti Coag Clinic 2.3 (0.9-1.1)
--- NOTE | 2024-03-09 09:23 | MHC.OFFVISCO ---
Intake Intake Visit Reasons: Anticoagulation Allergies Benzodiazepines Adverse Reaction (Severe, Verified 03/09/24 09:10) Drowsy codeine Adverse Reaction (Severe, Verified 03/09/24 09:10) Drowsy loratadine Adverse Reaction (Mild, Verified 03/09/24 09:10) Nausea Medication List - Last Reconciled 03/09/24 by Chasity Babcock, RN amlodipine 5 mg PO DAILY calcium carb-vit D4-Sy-nedlxte caps PO DAILY estradiol 0.01%(0.1mg/gram) vaginal levothyroxine 112 mcg PO DAILY simvastatin 20 mg PO QPM warfarin 5 mg See Protocol PO DAILY Nursing Note Amb to [facility] sts she has been having diarrhea secondary to the antibiotics and is going to lab for check for CDiff Medications and supplements reviewed, completed Doxycycline and has been instructed by MD to stop the Flagyl and macrobid sts she had last dose Flagyll this am, sts she took some Imodium for diarrhea but was also instructed to stop that sts he cold symptoms are improving, sounds less congested No other changes in health, diet, medications, or supplements, Sts she is having a little bit more bleeding vaginally sts she had been spotting but now prolapse is more irritated...constant cleaning area due to diarrhea has a sitz bath, recommended showers, pt sts cant always take a shower pt does have a hand held shower head and will start using that, has a walk in shower Bleeding, bruising, clotting discussed INR: 2.3 now in therapeutic range Dose: to continue on usual dosing for now 5mg today, 2.5mg for tomorrow- potential rise expected secondary to type of antibiotics and diarrhea pt to call us with ANY new medications pt going to [place] to visit brother who is ill, leaving on Saturday (travel by [employer] home- Bathroom available) F/U INR: Saturday prior to leaving on trip, pt aware of importance due to medications, diarrhea, recent warfarin changes, and continue vaginal (bleeding,staining,spotting) Patient verbalizes understanding of instructions given Anti-Coag Initial Assessment Social Hx Patient Tobacco Use Status: Former Tobacco user Tobacco use type: Cigarette Smoking packs per day: 3 alcohol intake: current Alcohol intake frequency: 0-2 drinks per day Cardiovascular Hx: HTN Lung Disease HX: DVT/PE Endocrine Hx: Thyroid Disease Musculoskeletal Hx: Arthritis, Osteoporosis and Gout Blood Disorder Hx: Hyperlipidemia Hx: Bladder Disorders Cancer HX: No Psych. Illness/Depression: No Coding Level of Care Code Est Patient Level 2 Diagnoses Current use of anticoagulant therapy Z79.01 Time Spent (min) 30 Results AMB INR Fingerstick AMB INR Fingerstick 2.3 Last Edit by Chasity Babcock RN on 03/09/24 09:20 interface failure Assessment & Plan Assessment & Plan (1) Current use of anticoagulant therapy: Code(s): Z79.01 - longterm (current) use of 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 Category: Medical
== END 2024-03-09 10:23 | disposition home or self-care (01) ==
LOC: HO.ACS 08:58
PROVIDERS: PCP Family Medicine; Visit Provider Internal Medicine
DX: Z79.01 Long term (current) use of 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 (principal)

== ENCOUNTER 2024-03-09 12:34 | Outpatient (REF) | payer MEDICARE, SELFPAY ==
[2024-03-09 13:39] LABS: CDiff Gene PCR NEGATIVE (Negative)
== END 2024-03-09 12:35 | disposition home or self-care (01) ==
LOC: HO.LNP 12:34
PROVIDERS: Visit Provider Obstetrics & Gynecology
DX: S37.69XA Other injury of uterus, initial encounter (principal); R19.7 Diarrhea, unspecified; Z79.01 Long term (current) use of 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; R93.89 Abnormal findings on diagnostic imaging of other specified body structures
CPT/HCPCS: 85610; 87493; 99212

== ENCOUNTER 2024-03-10 08:02 | Outpatient (AMB) | payer MEDICARE, SELFPAY ==
--- NOTE | 2024-03-10 08:02 | MHC.OFFVIS ---
Intake Visit Reasons: Labs results Allergies Benzodiazepines Adverse Reaction (Severe, Verified 03/09/24 09:10) Drowsy codeine Adverse Reaction (Severe, Verified 03/09/24 09:10) Drowsy loratadine Adverse Reaction (Mild, Verified 03/09/24 09:10) Nausea HPI Comments Details: The patient is scheduled a telehealth visit for follow-up. Her diarrhea has improved markedly after discontinuing antibiotics. C diff toxin was negative [facility] Social History Housing: House Housing Other:: lives with son, recently moved to this area from [facility] Alcohol intake: current Alcohol intake frequency: 0-2 drinks per day Patient Tobacco Use Status: Former Tobacco user Tobacco use type: Cigarette Cigarette Packs Per Day: 3 Current occupation: has [employer], [facility] and another location in [place] Current occupational exposures/hazards: Yes Review of Systems Const All systems reviewed & are unremarkable except as noted in HPI and below Reports as per HPI and Reports no additional complaints GI Reports no additional complaints Reports no additional complaints Telehealth Telehealth Telehealth Platform: Telephone Location of provider rendering services: practice address Location of patient: address on file Patient Identification confirmed using: Name, : Yes Telehealth method: voice only Patient verbally consented to treatment: Yes Patient verbally consented to billing insurance company: Yes Patient informed of any privacy concerns related to visit: Yes Assessment & Plan Assessment & Plan (1) Diarrhea: Code(s): R19.7 - Diarrhea, unspecified Category: Medical Plan: Discussed with the patient the results the C diff toxin, negative, the patient was reassured. Instructions given the patient to call or go to the emergency room in case of recurrence of her diarrhea, pelvic pain, fever nausea or vomiting. All questions answered, the patient verbalized understanding (2) Thickened endometrium: Code(s): R93.89 - Abnormal findings on diagnostic imaging of other specified body structures Category: Medical Plan: The patient is scheduled for an EMB within 1-2 weeks. All questions answered, the patient verbalized understanding I spent a total of 20 minutes reviewing the chart, talking to the patient via phone and documenting in the medical record. Coding Level of Care Code Tele Est Pt Level 1 (80332) Diagnoses Diarrhea R19.7 Thickened endometrium R93.89
== END 2024-03-11 08:37 | disposition home or self-care (01) ==
LOC: HO.HWS 08:02
PROVIDERS: PCP Family Medicine; Visit Provider Obstetrics & Gynecology
DX: R19.7 Diarrhea, unspecified (principal); R93.89 Abnormal findings on diagnostic imaging of other specified body structures
CPT/HCPCS: 99211

== ENCOUNTER → 2024-03-10 08:02 | Outpatient (BNVA) | payer MEDICARE, SELFPAY | PROVIDERS: PCP Family Medicine; Visit Provider Obstetrics & Gynecology ==

== ENCOUNTER 2024-03-11 09:11 | Outpatient (AMB) | payer MEDICARE, SELFPAY ==
--- NOTE | 2024-03-11 09:21 | MHC.OFFVISCO ---
Intake Intake Visit Reasons: Anticoagulation Allergies Benzodiazepines Adverse Reaction (Severe, Verified 03/11/24 09:18) Drowsy codeine Adverse Reaction (Severe, Verified 03/11/24 09:18) Drowsy loratadine Adverse Reaction (Mild, Verified 03/11/24 09:18) Nausea Medication List - Last Reconciled 03/11/24 by Katie Mao, RN amlodipine 5 mg PO DAILY calcium carb-vit G1-[id number]-[id number] caps PO DAILY estradiol 0.01%(0.1mg/gram) vaginal levothyroxine 112 mcg PO DAILY simvastatin 20 mg PO QPM warfarin 5 mg See Protocol PO DAILY Nursing Note INR 3.6-?? out of therapeutic range of 2-3 Medications and supplements reviewed Patient status: pt s/p uti, also bleeding - pessary removal, pt states minimal spotting at present Medications or supplements: all antibiotics d/c- last saturday am due to diarrhea per md- pt took immodium pt states now constipated- will take miralax Diet: appetite is good. Denies any signs and symptoms of bleeding or clotting or unusual bruising Bleeding, bruising, clotting discussed Nutritional guidance given: eat greens today Dose: hold half dose today, then cont reg 5mg x 2, 2.5mg x 5 F/U INR Date : 03/19/22? Patient verbalizing understanding of instructions given. pt traveling to [place] x 1 week Anti-Coag Initial Assessment Social Hx Patient Tobacco Use Status: Former Tobacco user Tobacco use type: Cigarette Smoking packs per day: 3 alcohol intake: current Alcohol intake frequency: 0-2 drinks per day Cardiovascular Hx: HTN Lung Disease HX: DVT/PE Endocrine Hx: Thyroid Disease Musculoskeletal Hx: Arthritis, Osteoporosis and Gout Blood Disorder Hx: Hyperlipidemia Hx: Bladder Disorders Cancer HX: No Psych. 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
[2024-03-11 09:22] LABS: Prothrombin Time Whole Bld POC 43.5 sec (11.1-13.5); ~PT, ~INR - Anti Coag Clinic 3.6 (0.9-1.1)
== END 2024-03-11 09:31 | disposition home or self-care (01) ==
LOC: HO.ACS 09:11
PROVIDERS: PCP Family Medicine; Visit Provider Internal Medicine
DX: Z79.01 Long term (current) use of 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 (principal)

== ENCOUNTER → 2024-03-11 09:11 | Outpatient (BNVA) | payer MEDICARE, SELFPAY | PROVIDERS: PCP Family Medicine; Visit Provider Internal Medicine | DX: I26.99 Other pulmonary embolism without acute cor pulmonale (principal); Z79.01 Long term (current) use of 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; Z51.81 Encounter for therapeutic drug level monitoring | CPT/HCPCS: 85610; 99211 ==

== ENCOUNTER 2024-03-20 10:10 | Outpatient (AMB) | payer MEDICARE, SELFPAY ==
[2024-03-20 10:28] LABS: Prothrombin Time Whole Bld POC 28.2 sec (11.1-13.5); ~PT, ~INR - Anti Coag Clinic 2.4 (0.9-1.1)
--- NOTE | 2024-03-20 10:59 | MHC.OFFVISCO ---
Intake Intake Visit Reasons: Anticoagulation Allergies Benzodiazepines Adverse Reaction (Severe, Verified 03/20/24 10:22) Drowsy codeine Adverse Reaction (Severe, Verified 03/20/24 10:22) Drowsy loratadine Adverse Reaction (Mild, Verified 03/20/24 10:22) Nausea Medication List - Last Reconciled 03/20/24 by Aleshia Bradley, RN amlodipine 5 mg PO DAILY calcium carb-vit F1-Oj-peoaeha caps PO DAILY estradiol 0.01%(0.1mg/gram) vaginal levothyroxine 112 mcg PO DAILY simvastatin 20 mg PO QPM warfarin 5 mg See Protocol PO DAILY Nursing Note INR: 2.3 in therapeutic range Medications and supplements reviewed Pt states the bleeding has decreased, an no longer has diarrhea, s/p antbx tx and uterine valve being removed. She states she is having a uterine bx 03/31/[address] Aviles if warfarin requires holding, where does the INR need to be and or lovneox bridge, will also consult PCP, Denies any signs and symptoms of bleeding or bruising or clotting. Bleeding, bruising, clotting discussed Nutritional guidance given- review food list especially during the holidays Dose: usual dose 5mg x 1 day/ 2.5mg x 6 days F/U INR: per md for procedure 1 month appt made for now but most likely will need sooner appt Patient verbalizes understanding of instructions given Msg to Dr Aviles and t/c to her PCP Anti-Coag Initial Assessment Social Hx Patient Tobacco Use Status: Former Tobacco user Tobacco use type: Cigarette Smoking packs per day: 3 alcohol intake: current Alcohol intake frequency: 0-2 drinks per day Cardiovascular Hx: HTN Lung Disease HX: DVT/PE Endocrine Hx: Thyroid Disease Musculoskeletal Hx: Arthritis, Osteoporosis and Gout Blood Disorder Hx: Hyperlipidemia Hx: Bladder Disorders Cancer HX: No Psych. 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
== END 2024-03-20 10:58 | disposition home or self-care (01) ==
LOC: HO.ACS 10:10
PROVIDERS: PCP Family Medicine; Visit Provider Internal Medicine
DX: Z79.01 Long term (current) use of 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 (principal)

== ENCOUNTER → 2024-03-20 10:10 | Outpatient (BNVA) | payer MEDICARE, SELFPAY | PROVIDERS: PCP Family Medicine; Visit Provider Internal Medicine | DX: I26.99 Other pulmonary embolism without acute cor pulmonale (principal); Z79.01 Long term (current) use of 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; Z51.81 Encounter for therapeutic drug level monitoring | CPT/HCPCS: 85610; 99212 ==

== ENCOUNTER 2024-03-30 09:34 | Outpatient (AMB) | payer MEDICARE, SELFPAY ==
--- NOTE | 2024-03-30 09:51 | MHC.OFFVISCO ---
Intake Intake Visit Reasons: Anticoagulation Allergies Benzodiazepines Adverse Reaction (Severe, Verified 03/30/24 09:35) Drowsy codeine Adverse Reaction (Severe, Verified 03/30/24 09:35) Drowsy loratadine Adverse Reaction (Mild, Verified 03/30/24 09:35) Nausea Medication List - Last Reconciled 03/30/24 by Aleshia Bradley, RN amlodipine 5 mg PO DAILY calcium carb-vit Y4-Xt-yaqikqn caps PO DAILY estradiol 0.01%(0.1mg/gram) vaginal levothyroxine 112 mcg PO DAILY simvastatin 20 mg PO QPM warfarin 5 mg See Protocol PO DAILY Nursing Note INR: 2.8 in therapeutic range Medications and supplements reviewed Pt going for uterin bx tomorrow per DR newton no warfarin hold required, pt enc to decrease warfarin to 2.5mg today to have INR in lower end of range for bx tomorrow, she will also eat a serving of greens Denies any signs and symptoms of bleeding or bruising or clotting. Bleeding, bruising, clotting discussed Nutritional guidance given Dose: 2.5mg today instead of 5mg then resume usual dose 5mg x 2days/ 2.5mg x 5 days F/U INR: 3 weeks per pt request or sooner if warranted pt enc to rest tomorrow - no heavy lifting or straining and to put feet up and rest as much as possible - if starts to bleed to call Dr Newton Patient verbalizes understanding of instructions given Anti-Coag Initial Assessment Social Hx Patient Tobacco Use Status: Former Tobacco user Tobacco use type: Cigarette Smoking packs per day: 3 alcohol intake: current Alcohol intake frequency: 0-2 drinks per day Cardiovascular Hx: HTN Lung Disease HX: DVT/PE Endocrine Hx: Thyroid Disease Musculoskeletal Hx: Arthritis, Osteoporosis and Gout Blood Disorder Hx: Hyperlipidemia Hx: Bladder Disorders Cancer HX: No Psych. Illness/Depression: No Coding Level of Care Code Est Patient Level 1 Diagnoses Current use of anticoagulant therapy Z79.01 Results AMB INR Fingerstick AMB INR Fingerstick 2.8 Last Edit by Aleshia Bradley RN on 03/30/24 09:44 MANUAL ENTRY Assessment & Plan Assessment & Plan (1) Current use of anticoagulant therapy: Code(s): Z79.01 - [facility]PC (current) use of 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 Category: Medical
[2024-03-30 09:57] LABS: Prothrombin Time Whole Bld POC 33.1 sec (11.1-13.5); ~PT, ~INR - Anti Coag Clinic 2.8 (0.9-1.1)
== END 2024-03-30 09:58 | disposition home or self-care (01) ==
LOC: HO.ACS 09:34
PROVIDERS: PCP Family Medicine; Visit Provider Internal Medicine
DX: Z79.01 Long term (current) use of 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 (principal)

== ENCOUNTER → 2024-03-30 09:34 | Outpatient (BNVA) | payer MEDICARE, SELFPAY | PROVIDERS: PCP Family Medicine; Visit Provider Internal Medicine | DX: I26.99 Other pulmonary embolism without acute cor pulmonale (principal); Z79.01 Long term (current) use of 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; Z51.81 Encounter for therapeutic drug level monitoring | CPT/HCPCS: 85610; 99211 ==

== ENCOUNTER 2024-03-31 09:34 | Outpatient (AMB) | payer MEDICARE, SELFPAY ==
--- NOTE | 2024-03-31 09:55 | A.OFFVIS_ITS ---
Vital Signs 03/31/24 09:56 Height 5 ft 4 in Weight 143 lb 4.807 oz BMI 24.6 BP 122/66 Intake Visit Reasons: EMB Senior Cytogenetics Laboratory Director Required: No Information Interpreted: non-clinical & clinical A&P Mechanic: A&P Mechanic Present (Cyndi WYNN) Accompanied by: se Allergies Benzodiazepines Adverse Reaction (Severe, Verified 03/31/24 10:10) Drowsy codeine Adverse Reaction (Severe, Verified 03/31/24 10:10) Drowsy loratadine Adverse Reaction (Mild, Verified 03/31/24 10:10) Nausea Post menopausal: Yes HPI Comments Details: Presenting complaining of daily continuous vaginal bleeding was incontinence, the patient is unsure if from the cervical abrasion or uterine in origin, the patient has been off the pessary, is requesting hysterectomy for her prolapse and urine incontinence. Pelvic ultrasound done no reports available, unofficial reading shows endometrial fluid, endometrial stripe measures 6 mm with fluid in 4 mm without fluid PFSH Social History Housing: House Housing Other:: lives with son, recently moved to this area from [facility] Alcohol intake: current Alcohol intake frequency: 0-2 drinks per day Patient Tobacco Use Status: Former Tobacco user Tobacco use type: Cigarette Cigarette Packs Per Day: 3 Current occupation: has [employer], [facility] and another location in [place] Current occupational exposures/hazards: Yes Physical Exam Vital Signs: Last Vital Signs BP 122/66 03/31/24 09:56 BMI result Body Mass Index 24.6 Office Procedures Endometrial Biopsy Details: The patient was counseled regarding the indication and benefits of endometrial sampling to rule out endometrial pathology including not limited to endometrial hyperplasia or endometrial cancer and others; The alternatives (Either do nothing vs. hysteroscopy D&C) & the risks were discussed with the patient including but not limited: pain, uterine perforation, bleeding, infection, possible injury to bladder, bowel, ureter, possible need for blood transfusion with all its possible risks. The patient verbalized understanding all questions answered and signed consent. The patient was placed into the dorsal lithotomy position; a speculum was inserted in the vagina. Using aseptic technique for the procedure, the cervix was cleansed with Betadine. The uterus was sounded to 7 cm with a 4 mm Pipelle was used. Minimal tissues samples were retrieved/ obtained and placed in formalin, in a patient labeled container and sent to the pathology department. At the end of the procedure, there was minimal bleeding noted The patient tolerated the procedure well and was discharged in good condition with the following instructions: Nothing in the vagina until the bleeding stops. No sex until the bleeding stops, to call if any of the following occurs: fever (>100.4), flu-like symptoms, abdominal pain, heavy bleeding, four smelling vaginal discharge. The patient was instructed to schedule a Follow up appointment in 2 weeks to discuss pathology results of the biopsy and treatment options. This note was generated with a voice recognition program. Some errors may have been overlooked during the review of this note. Sometimes these errors may affect the content or meaning of a given sentence. 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 EMB done, minimal tissue was retrieved, see procedure note. Instructions given the patient to schedule a 1 week follow-up appointment to discuss the results and next step in the management Orders: Orders AMB Endometrial Biopsy Today R93.89 - Abnormal findings on diagnostic imaging of other specified body structures Coding Level of Care Code Procedure Only Diagnoses Complete uterine prolapse with prolapse of anterior vaginal wall N81.3 Thickened endometrium R93.89 CPT Codes Endometrial Biopsy - CPT: 22952-[id number] Biopsy ([id number])
[2024-03-31 09:56] VITALS: BP 122/66; BMI 24.6
== END 2024-03-31 11:04 | disposition home or self-care (01) ==
LOC: HO.HWS 09:34
PROVIDERS: PCP Family Medicine; Visit Provider Obstetrics & Gynecology
DX: R93.89 Abnormal findings on diagnostic imaging of other specified body structures (principal); N81.3 Complete uterovaginal prolapse
CPT/HCPCS: 58100

== ENCOUNTER 2024-03-31 09:34 | Outpatient (REF) | payer MEDICARE, SELFPAY | END 2024-03-31 09:35 | disposition home or self-care (01) | LOC: HO.LNP 09:34 | PROVIDERS: PCP Family Medicine; Visit Provider Obstetrics & Gynecology | DX: R93.89 Abnormal findings on diagnostic imaging of other specified body structures (principal) | CPT/HCPCS: 58100; 88305 ==

== ENCOUNTER 2024-04-07 12:44 | Outpatient (AMB) | payer MEDICARE, SELFPAY ==
--- NOTE | 2024-04-07 13:08 | A.OFFVIS_ITS ---
Intake Visit Reasons: pessary check/EMB Results Veterinary Manager: Veterinary Manager Present (Ally) Accompanied by: Self / Same As Patient Allergies Benzodiazepines Adverse Reaction (Severe, Verified 04/07/24 13:11) Drowsy codeine Adverse Reaction (Severe, Verified 04/07/24 13:11) Drowsy loratadine Adverse Reaction (Mild, Verified 04/07/24 13:11) Nausea HPI Comments Details: The patient is presenting after endometrial biopsy. The patient has no complaints, no vaginal bleeding, no feverishness chills or abdominal pain. The endometrial biopsy pathology report showed the following: Endometrium, biopsy: - Inflamed endocervical and squamous epithelium with reactive changes; blood and ulcer/ fibrinonecrotic material. - No endometrial sampling present. Comment: Recommend repeat, as clinically appropriate The patient was seen few weeks ago complaining of daily continuous vaginal bleeding associated with urine incontinence, the patient is requesting hysterectomy for her prolapse and urine incontinence. Pelvic ultrasound done on 03/04/2024, no reports available yet, unofficial reading shows endometrial fluid, endometrial stripe measures 6 mm with fluid in 4 mm without fluid . With given the patient's recurrent vaginal bleeding of unknown origin endometrial biopsy was done which came back with no endometrial tissue present [facility] Social History Housing: House Housing Other:: lives with son, recently moved to this area from [facility] Alcohol intake: current Alcohol intake frequency: 0-2 drinks per day Patient Tobacco Use Status: Former Tobacco user Tobacco use type: Cigarette Cigarette Packs Per Day: 3 Current occupation: has [email or web address], [facility] and another location in [place] Current occupational exposures/hazards: Yes Review of Systems Const All systems reviewed & are unremarkable except as noted in HPI and below Reports as per HPI and Reports no additional complaints GI Reports no additional complaints Reports no additional complaints Assessment & Plan Assessment & Plan (1) Vaginal bleeding: Code(s): N93.9 - Abnormal uterine and vaginal bleeding, unspecified Category: Medical Plan: Discussed with the patient the results of endometrial biopsy pathology, no endometrial tissues for diagnosis. Recommended to the patient that the next step is to repeat endometrial sampling via hysteroscopy D&C possible polypectomy versus office endometrial biopsy to r/o endometrial pathology including hyperplasia or cancer. All the pros and cons risks and benefits of each ap proach were discussed with the patient. All questions were answered pt verbalized understanding and decided to hold off any further endometrial sampling at the moment, the patient understands that e ndometrial pathology including endometrial hyperplasia and malignancy has not been ruled out yet, and would like to wait for the referral appointment to [facility] urogynecology for further management. Referral to [facility] Urogynecology was placed. Instructed the patient to call our office back in case a referral appointment is not scheduled, missed or canceled so that we will assist on rescheduling another appointment, the patient verbalized understanding agreed with the plan. (2) Complete uterine prolapse with prolapse of anterior vaginal wall: Code(s): N81.3 - Complete uterovaginal prolapse Category: Medical Plan: The patient is requesting surgical management for her prolapse and urinary incontinence. Referral to Urogynecology was placed. Orders: Referrals Urogynecology Referral N81.3 - Complete uterovaginal prolapse, N93.9 - Abnormal uterine and vaginal bleeding, unspecified Coding Level of Care Code Est Pt Level 3 (08580) Diagnoses Vaginal bleeding N93.9 Complete uterine prolapse with prolapse of anterior vaginal wall N81.3
== END 2024-04-07 13:33 | disposition home or self-care (01) ==
LOC: HO.HWS 12:44
PROVIDERS: PCP Family Medicine; Visit Provider Obstetrics & Gynecology
DX: N93.9 Abnormal uterine and vaginal bleeding, unspecified (principal); N81.3 Complete uterovaginal prolapse
CPT/HCPCS: 99213

== ENCOUNTER → 2024-04-07 12:44 | Outpatient (BNVA) | payer MEDICARE, SELFPAY | PROVIDERS: PCP Family Medicine; Visit Provider Obstetrics & Gynecology | DX: N81.3 Complete uterovaginal prolapse (principal); N93.9 Abnormal uterine and vaginal bleeding, unspecified | CPT/HCPCS: 99212 ==

== ENCOUNTER 2024-04-24 10:56 | Outpatient (AMB) | payer MEDICARE, SELFPAY ==
[2024-04-24 11:16] LABS: Prothrombin Time Whole Bld POC 42.7 sec (11.1-13.5); ~PT, ~INR - Anti Coag Clinic 3.6 (0.9-1.1)
--- NOTE | 2024-04-24 11:20 | MHC.OFFVISCO ---
Intake Intake Visit Reasons: Anticoagulation Allergies Benzodiazepines Adverse Reaction (Severe, Verified 04/24/24 11:09) Drowsy codeine Adverse Reaction (Severe, Verified 04/24/24 11:09) Drowsy loratadine Adverse Reaction (Mild, Verified 04/24/24 11:09) Nausea Medication List - Last Reconciled 04/24/24 by Chasity Babcock, RN amlodipine 5 mg PO DAILY calcium carb-vit O4-Rm-aejibcb caps PO DAILY estradiol 0.01%(0.1mg/gram) vaginal levothyroxine 112 mcg PO DAILY simvastatin 20 mg PO QPM warfarin 5 mg See Protocol PO DAILY Nursing Note Amb to [facility] feeling ok , had uterine BX 03/31, sts continues with some spotting but not that bad Sts BX was inconclusive and has been referred to uro-wood flooring specialist, having insurance issues- encouraged to have SALES DEVELOPMENT MANAGER office set up referral Medications and supplements reviewed No other changes in health, diet, medications, or supplements, Denies any other signs and symptoms of bleeding, bruising, or clotting. Bleeding, bruising, clotting discussed INR: 3.6 above therapeutic range, thinks possibly less greens Dose: as pt really drops INR with holds, decrease dose today to 2.5mg vs 5mg then resume usual dosing 5mg x 2 days and 2.5mg x 5 days increase greens today and tomorrow then balance diet and be consistent F/U INR: 10 days, May 04, 2024 Patient verbalizes understanding of instructions given Anti-Coag Initial Assessment Social Hx Patient Tobacco Use Status: Former Tobacco user Tobacco use type: Cigarette Smoking packs per day: 3 alcohol intake: current Alcohol intake frequency: 0-2 drinks per day Cardiovascular Hx: HTN Lung Disease HX: DVT/PE Endocrine Hx: Thyroid Disease Musculoskeletal Hx: Arthritis, Osteoporosis and Gout Blood Disorder Hx: Hyperlipidemia Hx: Bladder Disorders Cancer HX: No Psych. Illness/Depression: No Coding Level of Care Code Est Patient Level 1 Diagnoses Current use of anticoagulant therapy Z79.01 Time Spent (min) 15 Assessment & Plan Assessment & Plan (1) Current use of anticoagulant therapy: Code(s): Z79.01 - termite control technician (current) use of 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 Category: Medical
== END 2024-04-24 12:01 | disposition home or self-care (01) ==
LOC: HO.ACS 10:56
PROVIDERS: PCP Family Medicine; Visit Provider Internal Medicine
DX: Z79.01 Long term (current) use of 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 (principal)

== ENCOUNTER → 2024-04-24 10:56 | Outpatient (BNVA) | payer MEDICARE, SELFPAY | PROVIDERS: PCP Family Medicine; Visit Provider Internal Medicine | DX: I26.99 Other pulmonary embolism without acute cor pulmonale (principal); Z79.01 Long term (current) use of 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; Z51.81 Encounter for therapeutic drug level monitoring | CPT/HCPCS: 85610; 99211 ==

== ENCOUNTER 2024-05-05 08:45 | Outpatient (AMB) | payer MEDICARE, SELFPAY ==
[2024-05-05 08:54] LABS: Prothrombin Time Whole Bld POC 29.6 sec (11.1-13.5); ~PT, ~INR - Anti Coag Clinic 2.5 (0.9-1.1)
--- NOTE | 2024-05-05 09:03 | MHC.OFFVISCO ---
Intake Intake Visit Reasons: Anticoagulation Allergies Benzodiazepines Adverse Reaction (Severe, Verified 05/05/24 08:47) Drowsy codeine Adverse Reaction (Severe, Verified 05/05/24 08:47) Drowsy loratadine Adverse Reaction (Mild, Verified 05/05/24 08:47) Nausea Medication List - Last Reconciled 05/05/24 by Aleshia Bradley, RN amlodipine 5 mg PO DAILY calcium carb-vit B6-Rs-zdnwvtz caps PO DAILY estradiol 0.01%(0.1mg/gram) vaginal levothyroxine 112 mcg PO DAILY simvastatin 20 mg PO QPM warfarin 5 mg See Protocol PO DAILY Nursing Note INR: 2.5 in therapeutic range Medications and supplements reviewed URO/AGRICULTURAL TECHNICAL OFFICER procedure on hold due to insurance coverage - searching for a provider to take her insurance, bleeding is scant. Will try to keep INR in mid to low range to minimize bleeding Denies any signs and symptoms of bleeding or bruising or clotting. Bleeding, bruising, clotting discussed Nutritional guidance given - keep eating a mix of fruits and vegetabkes Dose: keep same dose 5mg x 2 days/ 2.5mg x 5 days F/U INR: 1 month or prn Patient verbalizes understanding of instructions given Anti-Coag Initial Assessment Social Hx Patient Tobacco Use Status: Former Tobacco user Tobacco use type: Cigarette Smoking packs per day: 3 alcohol intake: current Alcohol intake frequency: 0-2 drinks per day Cardiovascular Hx: HTN Lung Disease HX: DVT/PE Endocrine Hx: Thyroid Disease Musculoskeletal Hx: Arthritis, Osteoporosis and Gout Blood Disorder Hx: Hyperlipidemia Hx: Bladder Disorders Cancer HX: No Psych. Illness/Depression: No Coding Level of Care Code Est Patient Level 1 Diagnoses Current use of anticoagulant therapy Z79.01 Assessment & Plan Assessment & Plan (1) Current use of anticoagulant therapy: Code(s): Z79.01 - senior care (current) use of 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 Category: Medical
== END 2024-05-05 09:09 | disposition home or self-care (01) ==
LOC: HO.ACS 08:46
PROVIDERS: PCP Family Medicine; Visit Provider Internal Medicine
DX: Z79.01 Long term (current) use of 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 (principal)

== ENCOUNTER → 2024-05-05 08:45 | Outpatient (BNVA) | payer MEDICARE, SELFPAY | PROVIDERS: PCP Family Medicine; Visit Provider Internal Medicine | DX: I26.99 Other pulmonary embolism without acute cor pulmonale (principal); Z79.01 Long term (current) use of 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; Z51.81 Encounter for therapeutic drug level monitoring | CPT/HCPCS: 85610; 99211 ==

== ENCOUNTER 2024-05-08 11:48 | Outpatient (AMB) | payer MEDICARE, SELFPAY ==
--- NOTE | 2024-05-08 11:51 | A.OFFVIS_ITS ---
Vital Signs 05/08/24 11:54 Height 5 ft 4 in Weight 143 lb BMI 24.5 BP 120/60 Intake Visit Reasons: Ultrasound follow up / ? repeat EMB Medical Field Representative Required: No Information Interpreted: non-clinical & clinical Accompanied by: Self / Same As Patient Allergies Benzodiazepines Adverse Reaction (Severe, Verified 05/08/24 11:54) Drowsy codeine Adverse Reaction (Severe, Verified 05/08/24 11:54) Drowsy loratadine Adverse Reaction (Mild, Verified 05/08/24 11:54) Nausea HPI Comments Details: Presenting for ultrasound follow-up which was done on 03/04/2024, read on 04/25/2024, the report showed the following: IMPRESSION: 1. There is fluid within the endometrial canal, borderline thickened endometrium measure up to 6 mm these are abnormal for patient's age and postmenopausal status, cannot rule out underlying occult lesion. Attention to follow-up recommended. CUSTOMER OPERATIONS SPECIALIST consultation recommended, may consider D&C, if not performed follow-up imaging in 3 months with pelvic MRI and/or ultrasound recommended. 2. Ovaries not visualized might have been obscured by bowel gas. 04/01/2024 Office EMB done, the pathology showed the following: Endometrium, biopsy: - Inflamed endocervical and squamous epithelium with reactive changes; blood and ulcer/ fibrinonecrotic material. - No endometrial sampling present. Comment: Recommend repeat, as clinically appropriate [facility] Social History Housing: House Housing Other:: lives with son, recently moved to this area from [facility] Alcohol intake: current Alcohol intake frequency: 0-2 drinks per day Patient Tobacco Use Status: Former Tobacco user Tobacco use type: Cigarette Cigarette Packs Per Day: 3 Current occupation: has [employer], [facility] and another location in [place] Current occupational exposures/hazards: Yes Review of Systems Const All systems reviewed & are unremarkable except as noted in HPI and below Reports as per HPI and Reports no additional complaints GI Reports no additional complaints Reports no additional complaints Physical Exam Vital Signs: Last Vital Signs BP 120/60 05/08/24 11:54 BMI result Body Mass Index 24.5 Assessment & Plan Assessment & Plan (1) Postmenopausal bleeding: Code(s): N95.0 - Postmenopausal bleeding Category: Medical Plan: Discussed with the patient the pelvic ultrasound findings, the endometrial stripe thickenss measured by ultrasound was more than 4mm. The negative predictive value, positive predictive value, Sensitivity, specificity of using ultrasound measurement of endometrial stripe to detecting endometrial pathology including hyperplasia , polyp or cancer were discussed with the patient. In addition discussed with the patient EMB pathology with no endometrial tissues, recommended additional endometrial sampling. Recommended to the patient that the next step is an endometrial sampling via hysteroscopy D&C possible polypectomy versus repeat endometrial biopsy to r/o endometrial pathology including hyperplasia or cancer. All the pros and cons risks and benefits of each approach were discussed with the patient, the patient does not want to go through an office EMB again since she had L a lot of discomfort and would like to go for hysteroscopy D&C possible polypectomy. Since the patient is on warfar in will refer the patient to a tertiary care center where more resources are available. Refer to [facility] O[facility] for further management. Instructed the patient to call our office back in case a referral appointment is not scheduled, missed or canceled so that we will assist on rescheduling another appointment, the patient verbalized understanding agreed with the plan. Coding Level of Care Code Est Pt Level 3 (27184) Diagnoses Postmenopausal bleeding N95.0
[2024-05-08 11:54] VITALS: BP 120/60; BMI 24.5
== END 2024-05-08 12:19 | disposition home or self-care (01) ==
LOC: HO.HWS 11:48
PROVIDERS: PCP Family Medicine; Visit Provider Obstetrics & Gynecology
DX: N95.0 Postmenopausal bleeding (principal)
CPT/HCPCS: 99213

== ENCOUNTER → 2024-05-08 11:48 | Outpatient (BNVA) | payer MEDICARE, SELFPAY | PROVIDERS: PCP Family Medicine; Visit Provider Obstetrics & Gynecology | DX: N95.0 Postmenopausal bleeding (principal) | CPT/HCPCS: 99212 ==

== ENCOUNTER 2024-06-19 10:21 | Outpatient (AMB) | payer MEDICARE, SELFPAY ==
[2024-06-19 10:41] LABS: Prothrombin Time Whole Bld POC 24.9 sec (11.1-13.5); ~PT, ~INR - Anti Coag Clinic 2.1 (0.9-1.1)
--- NOTE | 2024-06-19 10:47 | MHC.OFFVISCO ---
Intake Intake Visit Reasons: Anticoagulation Allergies Benzodiazepines Adverse Reaction (Severe, Verified 06/19/24 10:36) Drowsy codeine Adverse Reaction (Severe, Verified 06/19/24 10:36) Drowsy loratadine Adverse Reaction (Mild, Verified 06/19/24 10:36) Nausea Medication List - Last Reconciled 06/19/24 by Chasity Grullon, RN amlodipine 5 mg PO DAILY calcium carb-vit M8-[id number]-lztsdny caps PO DAILY levothyroxine 112 mcg PO DAILY simvastatin 20 mg PO QPM warfarin 5 mg See Protocol PO DAILY Nursing Note INR: 2.1 in therapeutic range of 2-3 Medications and supplements reviewed No changes in health, diet, medications, or supplements, Denies any signs and symptoms of bleeding or bruising or clotting. Bleeding, bruising, clotting discussed Nutritional guidance given Dose: 2.5mg X 5 days and 5mg X 2 days F/U INR: 4 weeks Patient verbalizes understanding of instructions given Anti-Coag Initial Assessment Social Hx Patient Tobacco Use Status: Former Tobacco user Tobacco use type: Cigarette Smoking packs per day: 3 alcohol intake: current Alcohol intake frequency: 0-2 drinks per day Cardiovascular Hx: HTN Lung Disease HX: DVT/PE Endocrine Hx: Thyroid Disease Musculoskeletal Hx: Arthritis, Osteoporosis and Gout Blood Disorder Hx: Hyperlipidemia Hx: Bladder Disorders Cancer HX: No Psych. Illness/Depression: No Coding Level of Care Code Est Patient Level 1 Diagnoses Current use of anticoagulant therapy Z79.01 Assessment & Plan Assessment & Plan (1) Current use of anticoagulant therapy: Code(s): Z79.01 - joint terminal attack controller (current) use of 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 Category: Medical
--- OUTSIDE RECORDS SUMMARY | 2024-06-19 11:11 | XMS_ITS | Encounter Summary ---
Author Organization [employer] Address [address] [place] [address] Care Team Providers Care Supervisor Mail Carriers Name Role Phone [facility] Primary Care Provider [phone] [phone] Encounter Details Date Type Department Care Team (Late st Contact Info) Description 01/20/2024 Orders Only [place] [facility] [address] [place] [address] [place], [place], [facility] [address] [place] [address] Social History Tobacco Use Types Packs/Day Years Used Date Smoking Tobacco: Former Cigarettes 3 10 1 966 1975 Smokeless Tobacco: Never Alcohol Use Standard Drinks/Week Comments Yes 7 (1 standard drink = 0.6 oz pur e alcohol) Housing Stability Answer Date Recorded What is your housing situation today? I have bell roberson 12/05/[address] you li ve. Do you have problems with any of the following? None of the above 12/05/2023 Food Insecurity Answer Date Recorded Within the past 12 months, y ou worried that your food would run out before you got money to buy more: Never True 12/05/2023 Within the past 12 months,th e food you bought just didn't last and you didn't have enough money to get more: Never True 11/2023 Transportation Answer Date Recorded In the past 12 months, has l ack of transportation kept you from medical appts, meetings, work or from getting things needed for daily living? No 12/05/2023 Utilities Answer Date Recorded In the past 12 months, has t he electric, gas, oil or water company threatened to shut off services in your home? No 12/05/2023 Depression Answer Date Recorded Patient Health Questionnaire-2 Score 0 12/05/2023 Internet Access Answer Date Recorded Internet Access Q1 Yes 12/30/2023 Internet Access Q2 Not on file 12/30/2023 Comments Unknown Sex and Gender Information Value Date Recorded Sex Assigned at Female 11/01/2023 12:09 PM EDT Legal Sex Female 12:05 PM EDT Gender Identity Female 11/01/2023 12:07 PM EDT Sexual Orientation Straight 11/01/2023 12 :09 PM EDT documented as of this encounter Plan of Treatment Upcoming Encounters Date Type Department Care Team (Late st Contact Info) Description 06/26/2024 3:00 PM EST Office Visit [place] [facility] [address] [place] [address] [place], [place] [facility] [address] [place] [address] documented as of this encounter Procedures Procedure Name Priority Date/Time Associated Diagnosis Comments PROTHROMBIN TIME-INR Routine 01/20/2024 11:43 AM EDT documented in this encounter Results * Prothrombin Time-INR (01/20/2024 11:43 AM EDT) Blood Venous blood specimen / Unknown [facility] LAB BLOOD ORDERABLES Taniya l Result documented in this encounter Visit Diagnoses Not on filedocumented in this encounter Care Teams Supervisor Mail Carriers Relationship Specialty Start Date End Date Alejandrina Keith [facility] [address] [place] [address] PCP - General Family Medicine 11/01/23 documented as of this encounter
--- OUTSIDE RECORDS SUMMARY | 2024-06-19 11:11 | XMS_ITS | Encounter Summary ---
Author Organization [employer] Address [address] [place] [address] Care Team Providers Care Dot Etcher Apprentice Name Role Phone [facility] Primary Care Provider [phone] [phone] Encounter Details Date Type Department Care Team (Late st Contact Info) Description 04/30/2024 Orders Only [place] [facility] [address] [place] [address] [place], [place], [facility] [address] [place] [address] Social History Tobacco Use Types Packs/Day Years [...] Description 06/26/2024 3:00 PM EST Office Visit [place] [facility] [address] [facility] [place] [address] [facility] [address] [place] [address] documented as of this encounter Procedures Procedure Name Priority Date/Time Associated Diagnosis Comments US PELVIC AND TRANSVAGINAL Routine 03/04/2024 11:08 AM EST documented in this encounter Results * US PELVIC AND TRANSVAGINAL (03/04/2024 11:08 AM EST) Anatomical Region Laterality Modality Ultrasound [facility] IM US PROCEDURES Final R esult documented in this encounter Visit Diagnoses Not on filedocumented in this encounter Care Teams Dot Etcher Apprentice Relationship Specialty Start Date End Date [facility] [address] [place] [address] PCP - General Family Medicine 11/01/23 documented as of this encounter
--- OUTSIDE RECORDS SUMMARY | 2024-06-19 11:11 | XMS_ITS | Clinical Summary ---
Author Organization [employer] Address [address] [facility] 7t [place] [address] Care Team Providers Care Hydrotherapist Name Role Phone Alejandrina Keith [facility] Primary Care Provider [phone] [phone] Allergies Active Allergy Reactions Criticality Noted Date Comments Benzodiazepines Unknown 05/06/2001 Codeine Unknown 05/06/2001 Loratadine Itching 06/28/2022 Medications warfarin (Coumadin) 5 MG tablet Take 5 mg by mouth Once per day. MF 5 mg , all other days 2.5 mg 10/16/19 23 Active simvastatin (Zocor) 20 MG tablet Take 20 mg by mouth in the evening. 07/07/19 23 025 Active levothyroxine (Synthroid, Levoxyl) 112 MCG tablet TAKE 1 TABLET(112 MCG) BY MOUTH EVERY MORNING 08/29/19 23 Active estradiol (Estrace) 0.1 MG/GM vaginal cream 1 g intravaginally Saturday and Saturday nights.. 04/01/20 23 Active Calcium Carb-Cholecalcif debra (Oyster Shell Calcium w/D) 500-5 MG-MCG tablet Take 1 tablet by mouth. Active amLODIPine (Norvasc) 5 MG tabletIndication s:Primary hypertension Take 1 tablet (5 mg) by mouth Once per day. 90 tablet 3 12/05/19 24 025 Active Active Problems Problem Noted Date Diagnosed Date Uterine prolapse 12/05/2023 Pessary maintenance 12/05/2023 Bilateral lower extremity edema 12/05/2023 Presence of IVC filter 07/04/2023 History of pulmonary embolism 02/11/2020 Anticoagulated on warfarin 03/28/2015 Hypothyroidism 07/29/2013 Overview (12/05/2023): Hypothyroidism Hyperlipidemia 07/29/2013 Overview (12/05/2023): Hyperlipidemia Resolved Problems Problem Noted Date Diagnosed Date Resolved Date Deep vein thrombosis (DVT) of lower extremity 05/14/19 23 12/05/2023 Pulmonary emboli 10/15/2013 12/05/2023 Overview (12/05/2023): History of extensive pulmonary emboli 2002 causing pulmonary hypertension which resolved. The patient had been transferred to [facility] from [facility] for further care and was then flown to [facility] in [place], [place] where she had an open chest surgery for endarterectomies of the aorta and bilateral pulmonary vasculature. She was seen in followup at [facility] for 4 years Off cOumadin since 09/2013,ON Xarelto Bilateral sensorineural hearing loss 09/30/2013 12/05/2023 Overview (12/05/2023): Sensorineural Hearing Loss In Both Ears Encounters Date Type Department Care Team Description 05/05/2024 Telephone [place] [facility] [address] [place] [address] [facility] Urologist gynocologist 04/30/2024 Orders Only [facility] [address] [place] [address] [facility] from Last 3 Months Immunizations Name Administration Dates Next Due Influenza High-dose Quadriva lent Preservative Free 01/25/2023 Pfizer Covid-19 Vaccine 12+ 01/25/2023,1 ,07/15/2020,06/24 Pneumococcal Conjugate PCV 13 01/30/2018 Pneumococcal Polysaccharide PPSV23 05/06/2008, Td (adult) 05/06/2008,03/29/2005 Tdap 02/28/2018 Zoster, Recombinant 11/24/2018,09/03/2018 Family History Medical History Relation Name Comments Diabetes Brother Stroke Father COPD Mother Rheum arthritis Mother Relation Name Status Comments Brother Daughter Alive Father Mother Son Alive Social History Tobacco Use Types Packs/Day Years Used Date Smoking Tobacco: Former Cigarettes 3 10 1 1975 Smokeless Tobacco: Never Alcohol Use Standard Drinks/Week Comments Yes 7 (1 standard drink = 0.6 oz pur e alcohol) Housing Stability Answer Date Recorded What is your housing situation today? I have bellrafa roberson 12/05/[address] you [...] Orientation Straight 11/01/2023 12 :09 PM EDT Last Filed Vital Signs Vital Sign [place] Time Taken Comments Blood Pressure 134/75 12/05/2023 10:38 AM EDT Pulse 87 12/05/2023 10:38 AM EDT Temperature 36.5 ??C (97.7 ??F) 12/05/2023 10:38 AM E DT Respiratory Rate - - Oxygen Saturation 96% 12/05/2023 10:38 AM EDT Inhaled Oxygen Concentration - - Weight 69.2 kg (152 lb 9.6 oz) 12/05/2023 10:38 AM EDT Height 162.6 cm (5' 4 ) 12/05/2023 10:38 AM EDT Body Mass Index 26.19 12/05/2023 10:38 AM EDT Plan of Treatment Upcoming Encounters Date Type Department Care Team (Late st Contact Info) Description 06/26/2024 3:00 PM EST Office Visit [place] [facility] [address] [place] [address] [place], [place], [facility] [address] [place] [address] Health Maintenance Due Date Last Done Comments Alcohol/Substance Use Screening 1954 RSV Patients and Patients Aged 60 years or older (1 - 1-dose 75+ series) 2017 COVID-19 Vaccine ( season) 2023 01/25/2023, 02/13/2022, 02/03/2021, Additional history exists Influenza Vaccine (#1) 2023 , 04/03/2012, 01/31/2011, Additional history exists Depression Screening 12/04/2024 12/05/2023, 12/05/19 24 SDOH Screening 12/04/2024 12/05/2023 Tobacco Screening 12/04/2024 12/05/2023 DTaP/Tdap/Td Vaccines (2 - Td or Tdap) 02/29/2028 02/28/2018, 05/06/2008, 03/29/2005 Lipid Panel 12/11/2028 12/12/2023 Pneumococcal Vaccine: 50+ Years Completed 01/30/2018, 05/06/2008, 01/23/2002 Zoster Vaccines Completed 11/24/2018, 09/03/2018 HIB Vaccines Aged Out No longer eligi ble based on patient's age to complete this topic HPV Vaccines Aged Out No longer eligi ble based on patient's age to complete this topic Hepatitis A Vaccines Aged Out No long er eligible based on patient's age to complete this topic Hepatitis B Vaccines Aged Out No long er eligible based on patient's age to complete this topic IPV Vaccines Aged Out No longer eligi ble based on patient's age to complete this topic Meningococcal Vaccine Aged Out No megan mariposa eligible based on patient's age to complete this topic RSV under 20 months Aged Out No longe r eligible based on patient's age to complete this topic Rotavirus Vaccines Aged Out No longer eligible based on patient's age to complete this topic Procedures Procedure Name Priority Date/Time Associated Diagnosis Comments LIPID PANEL, STANDARD Routine 12/12/2023 Hyperlipidemia, unspecified hyperlipidemia type from Last 3 Months or Most Recently Relevant to Health Maintenance Results * Lipid Panel, Standard (12/12/2023) Blood Venous blood specimen / Unknown [facility] LAB BLOOD ORDERABLES Taniya l Result EXTERNAL LAB from Last 3 Months or Most Recently Relevant to Health Maintenance Insurance [employer] Care Teams Hydrotherapist Relationship Specialty Start Date End Date [facility] [address] [place] [address] PCP - General Family Medicine 11/01/23
--- OUTSIDE RECORDS SUMMARY | 2024-06-19 11:11 | XMS_ITS | Encounter Summary ---
Author Organization [employer] Address [address] [place] [address] Care Team Providers Care Moving Van Driver Name Role Phone Alejandrina Keith HYDRAULIC ROCK DRILL OPERATOR Primary Care Provider [phone] [phone] Encounter Details Date Type Department Care Team (Late st Contact Info) Description 01/02/2024 Orders Only [place] [facility] [address] [place] [address] ProviderYahaira MD Social History Tobacco Use Types Packs/Day Years Used Date Smoking Tobacco: Former Cigarettes 3 10 966 1975 Smokeless Tobacco: Never Alcohol Use [...] 06/26/2024 3:00 PM EST Office Visit [place] [facility] 70 [place] [address] [facility] [address] [place] [address] documented as of this encounter Procedures Procedure Name Priority Date/Time Associated Diagnosis Comments PROTHROMBIN TIME-INR Routine 12/31/2023 5:13 PM EDT documented in this encounter Results * Prothrombin Time-INR (12/31/2023 5:13 PM EDT) Blood Venous blood specimen / Unknown us Historical Provider LAB BLOOD ORDERABLES Taniya l Result documented in this encounter Visit Diagnoses Not on filedocumented in this encounter Care Teams Moving Van Driver Relationship Specialty Start Date End Date [facility] [address] [place] [address] PCP - General Family Medicine 11/01/23 documented as of this encounter
--- OUTSIDE RECORDS SUMMARY | 2024-06-19 11:11 | XMS_ITS | Encounter Summary ---
Author Organization [employer] Address [address] [place] [address] Care Team Providers Care Domestic Cleaner Name Role Phone [facility] Primary Care Provider [phone] [phone] Encounter Details Date Type Department Care Team (Late st Contact Info) Description 03/07/2024 Orders Only [place] [facility] [address] [place] [address] [place], [place], [facility] [address] [place] [address] Social History Tobacco Use Types Packs/Day Years [...] Description 06/26/2024 3:00 PM EST Office Visit [place] [facility] 70 [place] [address] [place], [place] [facility] [address] [place] [address] documented as of this encounter Procedures Procedure Name Priority Date/Time Associated Diagnosis Comments CULTURE, URINE, ROUTINE Routine 03/03/2024 7:57 AM EST documented in this encounter Results * Culture, Urine, Routine (03/03/2024 7:57 AM EST) Urine [facility] LAB MICROBIOLOGY - GENERA L ORDERABLES Final Result documented in this encounter Visit Diagnoses Not on filedocumented in this encounter Care Teams Domestic Cleaner Relationship Specialty Start Date End Date Alejandrina Keith [facility] [address] [place] [address] PCP - General Family Medicine 11/01/23 documented as of this encounter
--- OUTSIDE RECORDS SUMMARY | 2024-06-19 11:11 | XMS_ITS | Encounter Summary ---
Author Organization [employer] Address [address] [place] [address] Care Team Providers Care Timber Girdler Name Role Phone [facility] Primary Care Provider [phone] [phone] Encounter Details Date Type Department Care Team (Late st Contact Info) Description 12/16/2023 Orders Only [place] [facility] [address] [place] [address] [place], [place], [facility] [address] [place] [address] Social History Tobacco Use Types Packs/Day Years [...] Recorded Patient Health Questionnaire-2 Score 0 12/05/2023 Comments Unknown Sex and Gender Information Value [...] 06/26/2024 3:00 PM EST Office Visit [place] [facility] [address] [place] [address] [place], [place] [facility] [address] [place] [address] documented as of this encounter Procedures Procedure Name Priority Date/Time Associated Diagnosis Comments PROTHROMBIN TIME-INR Routine 12/12/2023 11:59 AM EDT documented in this encounter Results * Prothrombin Time-INR (12/12/2023 11:59 AM EDT) Blood Venous blood specimen / Unknown [facility] LAB BLOOD ORDERABLES Taniya l Result documented in this encounter Visit Diagnoses Not on filedocumented in this encounter Care Teams Timber Girdler Relationship Specialty Start Date End Date Alejandrina Keith [facility] [address] [place] [address] PCP - General Family Medicine 11/01/23 documented as of this encounter
--- OUTSIDE RECORDS SUMMARY | 2024-06-19 11:11 | XMS_ITS | Encounter Summary ---
Author Organization [employer] Address [address] [facility] 7t [place] [address] Care Team Providers Care Certified Vehicle Fire Investigator Name Role Phone [facility] Primary Care Provider [phone] [phone] Reason for Visit * Reason Onset Date Comments Urologist gynocologist 05/05/2024 Encounter Details Date Type Department Care Team (Late st Contact Info) Description 05/05/2024 Telephone [place] [facility] [address] [place], [place] [id number] [place], [place], [facility] 70 [place] [address] Urologist gynocologist Social History Tobacco Use Types Packs/Day Years Used Date Smoking Tobacco: Former Cigarettes 3 10 1 966 - 1975 Smokeless Tobacco: Never Alcohol Use Standard [...] PM EDT documented as of this encounter Miscellaneous Notes * Telephone Encounter - Gilma Dawson - 06/05/2024 1:23 PM EST Patient going to [facility] for this. See referral for update * Telephone Encounter - Gilma Dawson - 05/21/2024 11:57 AM EST Spoke with patient, needs out of network auth for [facility] because there is no one in a 25 mile radius of her home. Unable to reach key biscayne at this time, will try again. * Telephone Encounter - Sally Greco - 05/05/2024 11:35 AM EST Patient called stating that she sees a recreation engineer for a prolapsed uterus. Patient states that thegyno can no longer help her and sent her to [facility]. Patients states that [facility] will not take her because of her insurance. Patient is wondering if we can find her an office or a urologist gyno that will take her insurance. Please call patient with info. documented in this encounter Plan of Treatment Upcoming Encounters Date Type Department Care Team (Late st Contact Info) Description 06/26/2024 3:00 PM EST Office Visit [place] [facility] [address] [place] [address] Alejandrina Keith FNP [address] [place] [address] documented as of this encounter Visit Diagnoses Not on filedocumented in this encounter Care Teams Certified Vehicle Fire Investigator Relationship Specialty Start Date End Date Alejandrina Keith FNP [address] [place] [address] PCP - General Family Medicine 11/01/23 documented as of this encounter
== END 2024-06-19 10:50 | disposition home or self-care (01) ==
LOC: HO.ACS 10:21
PROVIDERS: PCP Family Medicine; Visit Provider Internal Medicine
DX: Z79.01 Long term (current) use of 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 (principal)

== ENCOUNTER → 2024-06-19 10:21 | Outpatient (BNVA) | payer MEDICARE, SELFPAY | PROVIDERS: PCP Family Medicine; Visit Provider Internal Medicine | DX: I26.99 Other pulmonary embolism without acute cor pulmonale (principal); Z79.01 Long term (current) use of 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; Z51.81 Encounter for therapeutic drug level monitoring | CPT/HCPCS: 85610; 99211 ==

== ENCOUNTER 2024-07-20 13:41 | Outpatient (AMB) | payer MEDICARE, SELFPAY ==
[2024-07-20 13:48] LABS: Prothrombin Time Whole Bld POC 64.3 sec (11.1-13.5); ~PT, ~INR - Anti Coag Clinic 5.4 (0.9-1.1)
--- NOTE | 2024-07-20 13:56 | MHC.OFFVISCO ---
Intake Intake Visit Reasons: Anticoagulation Allergies Benzodiazepines Adverse Reaction (Severe, Verified 07/20/24 13:44) Drowsy codeine Adverse Reaction (Severe, Verified 07/20/24 13:44) Drowsy loratadine Adverse Reaction (Mild, Verified 07/20/24 13:44) Nausea Medication List - Last Reconciled 07/20/24 by Chasity Grullon, RN amlodipine 5 mg PO DAILY calcium carb-vit [id number] caps PO DAILY levothyroxine 112 mcg PO DAILY simvastatin 20 mg PO QPM warfarin 5 mg See Protocol PO DAILY Nursing Note INR: 5.4?out of therapeutic range of 2.0-3.0 Pt sent to lab for venous draw to verify INR Venous INR result: 4.6 Assessed reasons why the INR is high. Pt states she has been taking tylenol daily for plantar faciitis pain. She also states she has a prolapsed uterus and has increased stress with that and has an appointment for that this week. Pt also states she has had increased alcohol intake due to stress. Medications and supplements reviewed: no changes Patient status: as above Diet: usual diet for pt Denies any signs and symptoms of bleeding or clotting or unusual bruising Bleeding, bruising, clotting discussed Nutritional guidance given: to have a serving of greens today and tomorrow Dose: hold today's dose of 5mg then usual dose of 2.5mg X 5 days and 5mg X 2 days (Mon & Fri) F/U INR Date : 1 week Patient verbalizing understanding of instructions with read back given. Anti-Coag Initial Assessment Social Hx Patient Tobacco Use Status: Former Tobacco user Tobacco use type: Cigarette Smoking packs per day: 3 alcohol intake: current Alcohol intake frequency: 0-2 drinks per day Cardiovascular Hx: HTN Lung Disease HX: DVT/PE Endocrine Hx: Thyroid Disease Musculoskeletal Hx: Arthritis, Osteoporosis and Gout Blood Disorder Hx: Hyperlipidemia Hx: Bladder Disorders Cancer HX: No Psych. Illness/Depression: No Coding Level of Care Code Est Patient Level 2 Diagnoses Current use of anticoagulant therapy Z79.01 Time Spent (min) 30 Comment critical INR, pt to lab for venous draw verification, pt teaching Assessment & Plan Assessment & Plan (1) Current use of anticoagulant therapy: Code(s): Z79.01 - regional intermodal truck driver (current) use of 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 Category: Medical Orders: Orders Prothrombin Time INR Today Z79.01 - regional intermodal truck driver (current) use of 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
== END 2024-07-20 14:42 | disposition home or self-care (01) ==
LOC: HO.ACS 13:41
PROVIDERS: PCP Family Medicine; Visit Provider Internal Medicine Medical Oncology
DX: Z79.01 Long term (current) use of 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 (principal)

== ENCOUNTER 2024-07-20 13:41 | Outpatient (REF) | payer MEDICARE, SELFPAY ==
[2024-07-20 14:24] LABS: INTERNATIONAL NORM RATIO 4.6 (0.9-1.1)
== END 2024-07-20 13:42 | disposition home or self-care (01) ==
LOC: HO.LAB 13:41
PROVIDERS: PCP Family Medicine; Visit Provider Internal Medicine Medical Oncology
DX: Z79.01 Long term (current) use of 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 (principal); I26.99 Other pulmonary embolism without acute cor pulmonale
CPT/HCPCS: 36415; 85610; 99212

== ENCOUNTER 2024-07-22 13:42 | Outpatient (REF) | payer MEDICARE, SELFPAY ==
[2024-07-22 16:17] LABS: HIV AB/AG Nonreactive (Nonreactive); HIV Num 1 0.06 S/CO (0.00-0.99)
[2024-07-23 04:44] LABS: HBS Num1 1.37 mIU/mL (0-7.99); HBc Num1 0.06 S/CO (0.00-0.79); Hepatitis B Core Antibody Nonreactive (Nonreactive); ~HepC Num1 0.17 S/CO (0.00-0.79); ~Hepatitis B Surface Antibody NONREACTIVE (Nonreactive)
[2024-07-23 04:45] LABS: HBsAGNum1 0.31 S/CO (0.00-0.99); Hepatitis B Surface Antigen Negative (Negative); ~Hepatitis C Antibody Nonreactive (Nonreactive)
== END 2024-07-22 13:43 | disposition home or self-care (01) ==
LOC: HO.LAB 13:42
PROVIDERS: PCP Family Medicine; Visit Provider Internal Medicine Medical Oncology
DX: I26.99 Other pulmonary embolism without acute cor pulmonale (principal)
CPT/HCPCS: 36415; 86704; 86706; 86803; 87340; 87389

== ENCOUNTER 2024-07-27 13:53 | Outpatient (AMB) | payer MEDICARE, SELFPAY ==
[2024-07-27 14:29] LABS: Prothrombin Time Whole Bld POC 25.5 sec (11.1-13.5); ~PT, ~INR - Anti Coag Clinic 2.1 (0.9-1.1)
--- NOTE | 2024-07-27 14:39 | MHC.OFFVISCO ---
Intake Intake Visit Reasons: Anticoagulation Allergies Benzodiazepines Adverse Reaction (Severe, Verified 07/27/24 14:18) Drowsy codeine Adverse Reaction (Severe, Verified 07/27/24 14:18) Drowsy loratadine Adverse Reaction (Mild, Verified 07/27/24 14:18) Nausea Medication List - Last Reconciled 07/27/24 by Alsehia Bradley RN amlodipine 5 mg PO DAILY calcium carb-vit [id number] caps PO DAILY levothyroxine 112 mcg PO DAILY nitrofurantoin monohyd/m-cryst 100 mg 1 cap PO BID simvastatin 20 mg PO QPM warfarin 5 mg See Protocol PO DAILY Nursing Note INR: 2.1 in therapeutic range Medications and supplements reviewed Deals with prolapsed uterus daily and now has UTI on antbx that does not interact with warfarin, taking very limited amt tylenol for her plantar fascitis- it was explained that her warfarin dose could be decreased a little so she could take tyelnol more frequently for her discomfort she agreed she would like to decrease the warfarin while taking more tylenol because her family does not eat very many greens to have hysterectomy in 3-4 months Denies any signs and symptoms of bleeding or bruising or clotting. Bleeding, bruising, clotting discussed Nutritional guidance given Dose: 2.5mg x 6 days/ 5mg x 1 day F/U INR: 1 week Patient verbalizes understanding of instructions given Anti-Coag Initial Assessment Social Hx Patient Tobacco Use Status: Former Tobacco user Tobacco use type: Cigarette Smoking packs per day: 3 alcohol intake: current Alcohol intake frequency: 0-2 drinks per day Cardiovascular Hx: HTN Lung Disease HX: DVT/PE Endocrine Hx: Thyroid Disease Musculoskeletal Hx: Arthritis, Osteoporosis and Gout Blood Disorder Hx: Hyperlipidemia Hx: Bladder Disorders Cancer HX: No Psych. Illness/Depression: No Coding Level of Care Code Est Patient Level 1 Diagnoses Current use of anticoagulant therapy Z79.01 Results AMB INR Fingerstick AMB INR Fingerstick 2.1 Last Edit by Aleshia Bradley RN on 07/27/24 14:28 manual entry Assessment & Plan Assessment & Plan (1) Current use of anticoagulant therapy: Code(s): Z79.01 - assisted (current) use of 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 Category: Medical
--- OUTSIDE RECORDS SUMMARY | 2024-07-27 15:41 | XMS_ITS | Encounter Summary ---
Author Organization [employer] Address [address] 7t [place] [address] Care Team Providers Care Uniform Attendant Name Role Phone Alejandrina Keith [facility] Primary Care Provider +1 [phone] Encounter Details Date Type Department Care Team (Late st Contact Info) Description 01/02/2024 Orders Only [place] [facility] [address] [place] [address] ProviderYahaira MD Social History Tobacco Use Types [...] Care Team (Late st Contact Info) Description 01/01/2025 3:00 PM EDT Office Visit Jos[facility] [address] [place] [address] [facility] 70 [place] [address] documented as of this encounter Procedures Procedure Name Priority Date/Time Associated Diagnosis Comments PROTHROMBIN TIME-INR Routine 12/31/2023 5:13 PM EDT documented in this encounter Results * Prothrombin Time-INR (12/31/2023 5:13 PM EDT) Blood Venous blood specimen / Unknown us Historical Provider LAB BLOOD ORDERABLES Taniya l Result documented in this encounter Visit Diagnoses Not on filedocumented in this encounter Care Teams Uniform Attendant Relationship Specialty Start Date End Date [facility] [address] [place] [address] PCP - General Family Medicine 11/01/23 documented as of this encounter
--- OUTSIDE RECORDS SUMMARY | 2024-07-27 15:41 | XMS_ITS | Encounter Summary ---
Author Organization [employer] Address [address] [place] [address] Care Team Providers Care Land Acquisition Analyst Name Role Phone [facility] Primary Care Provider +1 [phone] Encounter Details Date Type Department Care Team (Late st Contact Info) Description 12/16/2023 Orders Only [place] [facility] [address] [place] [address] [place], [place], [facility] 70 [place] [address] Social History Tobacco Use Types Packs/Day Years [...] 01/01/2025 3:00 PM EDT Office Visit Joselin [facility] [address] [place] [address] [place], [place] [facility] 70 [place] [address] documented as of this encounter Procedures Procedure Name Priority Date/Time Associated Diagnosis Comments PROTHROMBIN TIME-INR Routine 12/12/2023 11:59 AM EDT documented in this encounter Results * Prothrombin Time-INR (12/12/2023 11:59 AM EDT) Blood Venous blood specimen / Unknown [facility] LAB BLOOD ORDERABLES Taniya l Result documented in this encounter Visit Diagnoses Not on filedocumented in this encounter Care Teams Land Acquisition Analyst Relationship Specialty Start Date End Date [facility] call [facility] [address] [place] [address] PCP - General Family Medicine 11/01/23 documented as of this encounter
--- OUTSIDE RECORDS SUMMARY | 2024-07-27 15:41 | XMS_ITS | Encounter Summary ---
Author Organization [employer] Address [address] 7t [place] [address] Care Team Providers Care Machine Or Machinery Mechanic Name Role Phone [facility] Primary Care Provider +1 [phone] Encounter Details Date Type Department Care Team (Late st Contact Info) Description 03/07/2024 Orders Only [place] [facility] [address] [place] [address] [place], [place], [facility] 70 [place] [address] Social History Tobacco Use Types Packs/Day Years [...] Description 01/01/2025 3:00 PM EDT Office Visit [place] [facility] 70 [place] [address] [place], [place] [facility] 70 [place] [address] documented as of this encounter Procedures Procedure Name Priority Date/Time Associated Diagnosis Comments CULTURE, URINE, ROUTINE Routine 03/03/2024 7:57 AM EST documented in this encounter Results * Culture, Urine, Routine (03/03/2024 7:57 AM EST) Urine [facility] LAB MICROBIOLOGY - GENERA L ORDERABLES Final Result documented in this encounter Visit Diagnoses Not on filedocumented in this encounter Care Teams Machine Or Machinery Mechanic Relationship Specialty Start Date End Date Alejandrina Keith [facility] 70 [place] [address] PCP - General Family Medicine 11/01/23 documented as of this encounter
--- OUTSIDE RECORDS SUMMARY | 2024-07-27 15:41 | XMS_ITS | Encounter Summary ---
Author Organization [employer] Address [address] 7[address] [place] [address] Care Team Providers Care Supervisor General Name Role Phone [facility] Primary Care Provider [phone] [phone] Encounter Details Date Type Department Care Team (Late st Contact Info) Description 01/20/2024 Orders Only [place] [facility] [address] [place] [address] [place], [place], [facility] 70 [place] [address] Social History Tobacco Use Types Packs/Day Years [...] Description 01/01/2025 3:00 PM EDT Office Visit [place] [facility] [address] [place] [address] [place], [place] [facility] [address] [place] [address] documented as of this encounter Procedures Procedure Name Priority Date/Time Associated Diagnosis Comments PROTHROMBIN TIME-INR Routine 01/20/2024 11:43 AM EDT documented in this encounter Results * Prothrombin Time-INR (01/20/2024 11:43 AM EDT) Blood Venous blood specimen / Unknown [facility] LAB BLOOD ORDERABLES Taniya l Result documented in this encounter Visit Diagnoses Not on filedocumented in this encounter Care Teams Supervisor General Relationship Specialty Start Date End Date Alejandrina Keith FNP [address] [place] [address] PCP - General Family Medicine 11/01/23 documented as of this encounter
--- OUTSIDE RECORDS SUMMARY | 2024-07-27 15:41 | XMS_ITS | Encounter Summary ---
Author Organization [employer] Address [address] [place] [address] Care Team Providers Care Thread Laster Name Role Phone [facility] Primary Care Provider +1 [phone] Encounter Details Date Type Department Care Team (Late st Contact Info) Description 04/30/2024 Orders Only [place] [facility] [address] [place] [address] [place], [place], [facility] 70 [place] [address] Social History Tobacco Use Types Packs/Day Years [...] 01/01/2025 3:00 PM EDT Office Visit Joselin [facility] 70 [facility] [place] [address] [facility] Alejandrina [facility] [address] [place] [address] documented as of this encounter Procedures Procedure Name Priority Date/Time Associated Diagnosis Comments US PELVIC AND TRANSVAGINAL Routine 03/04/2024 11:08 AM EST documented in this encounter Results * US PELVIC AND TRANSVAGINAL (03/04/2024 11:08 AM EST) Anatomical Region Laterality Modality Ultrasound [facility] IMG US PROCEDURES Final R esult documented in this encounter Visit Diagnoses Not on filedocumented in this encounter Care Teams Thread Laster Relationship Specialty Start Date End Date [facility] AlejandrinaRANDOLPH [address] [place] [address] PCP - General Family Medicine 11/01/23 documented as of this encounter
--- OUTSIDE RECORDS SUMMARY | 2024-07-27 15:41 | XMS_ITS | Clinical Summary ---
Author Organization [employer] Address [address] [facility] 7t [place] [address] Care Team Providers Care Cooling Room Attendant Name Role Phone Alejandrina Keith [facility] Primary Care Provider [phone] [phone] Allergies Active Allergy Reactions Criticality Noted Date Comments Benzodiazepines Unknown 05/06/2001 Codeine Unknown 05/06/2001 Loratadine Itching 06/28/2022 Medications warfarin (Coumadin) 5 MG tablet Take 5 mg by mouth Once per day. MF 5 mg , all other days 2.5 mg 10/16/19 23 Active estradiol (Estrace) 0.1 MG/GM vaginal cream 1 g intravaginally Saturday and Saturday nights.. 04/01/20 23 Active Calcium Carb-Cholecalcifer ol (Oyster Shell Calcium w/D) 500-5 MG-MCG tablet Take 1 tablet by mouth. Active amLODIPine (Norvasc) 5 MG tabletIndications: Primary hypertension Take 1 tablet (5 mg) by mouth Once per day. 90 tablet 3 12/05/19 24 025 Active levothyroxine (Synthroid, Levoxyl) 112 MCG tabletIndications: Acquired hypothyroidism Take 1 tablet (112 mcg) by mouth before breakfast. 100 tablet 3 06/26/19 25 Active simvastatin (Zocor) 20 MG tabletIndications: Hyperlipidemia, unspecified hyperlipidemia type Take 1 tablet (20 mg) by mouth in the evening. 100 tablet 3 06/26/19 25 Active fluticasone furoate (Arnuity Ellipta) 100 MCG/ACT inhalerIndications :Subacute cough Inhale 1 puff Once per day. Rinse mouth with water after use to reduce aftertaste and incidence of candidiasis. Do not swallow. 1 each 06/26/19 25 Active Active Problems Problem Noted Date Diagnosed Date Uterine prolapse 12/05/2023 Bilateral lower extremity edema 12/05/2023 Presence of IVC filter 07/04/2023 History of pulmonary embolism 02/11/2020 Anticoagulated on warfarin 03/28/2015 Hypothyroidism 07/29/2013 Overview (12/05/2023): Hypothyroidism Hyperlipidemia 07/29/2013 Overview (12/05/2023): Hyperlipidemia Resolved Problems Problem Noted Date Diagnosed Date Resolved Date Pessary maintenance 12/05/2023 06/26/19 25 Deep vein thrombosis (DVT) of lower extremity 05/14/19 23 12/05/2023 Pulmonary emboli 10/15/2013 12/05/2023 Overview (12/05/2023): History of extensive pulmonary emboli 2002 causing pulmonary hypertension which resolved. The patient had been transferred to [facility] from [facility] for further care and was then flown to [facility] in [place], [place] where she had an open chest surgery for endarterectomies of the aorta and bilateral pulmonary vasculature. She was seen in followup at [facility] for 4 years Off cOumadin since 09/2013,ON Xarelto Bilateral sensorineural hearing loss 09/30/2013 12/05/2023 Overview (12/05/2023): Sensorineural Hearing Loss In Both Ears Encounters Date Type Department Care Team Description 07/24/2024 Orders Only [facility] [address] [place] [address] [place], [place] 06/26/2024 2:20 PM EST Office Visit Joselin [facility] [address] [place] [address] [facility] Uterine prolapse (Primary Dx); Acquired hypothyroidism; Hyperlipidemia, unspecified hyperlipidemia type; History of pulmonary embolism; Anticoagulated on warfarin; Hearing loss, unspecified hearing loss type, unspecified laterality; Subacute cough; Health care maintenance 05/05/2024 Telephone [facility] [address] [place] [address] Alejandrina Keith FNP Urologist gynocologist 04/30/2024 Orders Only [facility] [address] [facility] [place] [address] Alejandrina Keith FNP from Last 3 Months Immunizations Name Administration [...] Sign Reading Time Taken Comments Blood Pressure 125/74 06/26/2024 1:53 PM EST Pulse 83 06/26/2024 1:53 PM EST Temperature 36.8 ??C (98.2 ??F) 06/26/2024 1:[address] Respiratory Rate - - Oxygen Saturation 96% 06/26/2024 1:53 PM EST Inhaled Oxygen Concentration - - Weight 64.9 kg (143 lb) 06/26/2024 1:53 PM EST Height 162.6 cm (5' 4 ) 06/26/2024 1:53 PM EST Body Mass Index 24.55 06/26/2024 1:53 PM EST Plan of Treatment Upcoming Encounters Date Type Department Care Team (Late st Contact Info) Description 01/01/2025 3:00 PM EDT Office Visit Joselin [facility] [address] [place] [address] [facility] [address] [place] [address] Health Maintenance Due Date Last Done Comments Alcohol/Substance Use Screening 1952 RSV Patients and Patients Aged 60 years or older (1 - 1-dose 75+ series) 2017 COVID-19 Vaccine ( season) 2023 01/25/2023, 02/13/2022, 02/03/2021, Additional history exists Influenza Vaccine (#1) 2023 , 04/03/2012, 01/31/2011, Additional history exists Depression Screening 12/04/2024 12/05/2023, 12/05/19 SDOH Screening 12/04/2024 12/05/2023 Tobacco Screening 06/26/2025 06/26/2024 DTaP/Tdap/Td Vaccines (2 - Td or Tdap) [...] Date/Time Associated Diagnosis Comments PROTHROMBIN TIME-INR Routine 07/20/2024 11:01 AM EDT LIPID PANEL, STANDARD Routine 12/12/2023 Hyperlipidemia, unspecified hyperlipidemia type from Last 3 Months or Most Recently Relevant to Health Maintenance Results * Prothrombin Time-INR (07/20/2024 11:01 AM EDT) Blood Venous blood specimen / Unknown [facility] LAB BLOOD ORDERABLES Taniya l Result * Lipid Panel, Standard (12/12/2023) Blood Venous blood specimen / Unknown [facility] LAB BLOOD ORDERABLES Taniya l Result EXTERNAL LAB from Last 3 Months or Most Recently Relevant to Health Maintenance [place] [address] [employer] [employer] [facility] Care Teams Cooling Room Attendant Relationship Specialty Start Date End Date Alejandrina Keith FNP [address] [place] [address] PCP - General Family Medicine 11/01/23
--- OUTSIDE RECORDS SUMMARY | 2024-07-27 15:41 | XMS_ITS | Encounter Summary ---
Author Organization [employer] Address [address]t [place] [address] Care Team Providers Care Hydroelectric Machinery Mechanic Name Role Phone [facility] Primary Care Provider [phone] [phone] Encounter Details Date Type Department Care Team (Late st Contact Info) Description 07/24/2024 Orders Only [facility] [address] [place] [address] [place], [place], [facility] [address] [place] [address] Social History Tobacco Use Types Packs/Day Years [...] Description 01/01/2025 3:00 PM EDT Office Visit [facility] [address] [place] [address] [place], [place] [facility] [address] [place] [address] documented as of this encounter Procedures Procedure Name Priority Date/Time Associated Diagnosis Comments PROTHROMBIN TIME-INR Routine 07/20/2024 11:01 AM EDT documented in this encounter Results * Prothrombin Time-INR (07/20/2024 11:01 AM EDT) Blood Venous blood specimen / Unknown [facility] LAB BLOOD ORDERABLES Taniya l Result documented in this encounter Visit Diagnoses Not on filedocumented in this encounter Care Teams Hydroelectric Machinery Mechanic Relationship Specialty Start Date End Date Alejandrina Keith FNP [address] [place] [address] PCP - General Family Medicine 11/01/23 documented as of this encounter
== END 2024-07-27 14:44 | disposition home or self-care (01) ==
LOC: HO.ACS 13:53
PROVIDERS: PCP Family Medicine; Visit Provider Internal Medicine Medical Oncology
DX: Z79.01 Long term (current) use of 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 (principal)

== ENCOUNTER → 2024-07-27 13:53 | Outpatient (BNVA) | payer MEDICARE, SELFPAY | PROVIDERS: PCP Family Medicine; Visit Provider Internal Medicine Medical Oncology | DX: I26.99 Other pulmonary embolism without acute cor pulmonale (principal); Z51.81 Encounter for therapeutic drug level monitoring; Z79.01 Long term (current) use of 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 | CPT/HCPCS: 85610; 99211 ==

== ENCOUNTER 2024-08-03 13:18 | Outpatient (AMB) | payer MEDICARE, SELFPAY ==
[2024-08-03 13:23] LABS: Prothrombin Time Whole Bld POC 35.7 sec (11.1-13.5)
--- NOTE | 2024-08-03 13:35 | MHC.OFFVISCO ---
Intake Intake Visit Reasons: Anticoagulation Allergies Benzodiazepines Adverse Reaction (Severe, Verified 08/03/24 13:18) Drowsy codeine Adverse Reaction (Severe, Verified 08/03/24 13:18) Drowsy loratadine Adverse Reaction (Mild, Verified 08/03/24 13:18) Nausea Medication List - Last Reconciled 08/03/24 by Chasity Grullon, RN amlodipine 5 mg PO DAILY calcium carb-vit T5-Vi-adirrgs caps PO DAILY levothyroxine 112 mcg PO DAILY nitrofurantoin monohyd/m-cryst 100 mg 1 cap PO BID simvastatin 20 mg PO QPM warfarin 5 mg See Protocol PO DAILY Nursing Note INR: 3.0 in therapeutic range of 2-3 Medications and supplements reviewed No changes in health, diet, medications, or supplements, Denies any signs and symptoms of bleeding or bruising or clotting. Bleeding, bruising, clotting discussed Nutritional guidance given to have a serving of greens today Dose: 2.5mg X 6 days and5mg X 1 day (Sat) F/U INR: 4 weeks Patient verbalizes understanding of instructions given Anti-Coag Initial Assessment Social Hx Patient Tobacco Use Status: Former Tobacco user Tobacco use type: Cigarette Smoking packs per day: 3 alcohol intake: current Alcohol intake frequency: 0-2 drinks per day Cardiovascular Hx: HTN Lung Disease HX: DVT/PE Endocrine Hx: Thyroid Disease Musculoskeletal Hx: Arthritis, Osteoporosis and Gout Blood Disorder Hx: Hyperlipidemia Hx: Bladder Disorders Cancer HX: No Psych. Illness/Depression: No Coding Level of Care Code Est Patient Level 1 Diagnoses Current use of anticoagulant therapy Z79.01 Assessment & Plan Assessment & Plan (1) Current use of anticoagulant therapy: Code(s): Z79.01 - long term acute care registered nurse (current) use of 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 Category: Medical
--- OUTSIDE RECORDS SUMMARY | 2024-08-03 15:47 | XMS_ITS | Clinical Summary ---
Author Organization [employer] Address [address] [facility] 7t [place] [address] Care Team Providers Care Heel Sorter Name Role Phone Alejandrina Keith [facility] Primary Care Provider +1 [phone] Allergies Active Allergy Reactions Criticality Noted Date [...] resolved. The patient had been transferred to [facility] from [facility] for further care and was then flown to [facility] in [place], [place] where she had an open chest surgery for endarterectomies of the aorta and bilateral pulmonary vasculature. She was seen in followup at [facility] for 4 years Off cOumadin since 09/2013,ON Xarelto Bilateral sensorineural hearing loss 09/30/2013 12/05/2023 Overview (12/05/2023): Sensorineural Hearing Loss In Both Ears Encounters Date Type Department Care Team Description 07/24/2024 Orders Only [facility] Information Management [address] [place] [address] [place], [place] 06/26/2024 2:20 PM EST Office Visit Joselin [facility] MED[facility] [address] [place] [address] [facility] Uterine prolapse (Primary Dx); Acquired hypothyroidism; Hyperlipidemia, unspecified hyperlipidemia type; History of pulmonary embolism; Anticoagulated on warfarin; Hearing loss, unspecified hearing loss type, unspecified laterality; Subacute cough; Health care maintenance 05/05/2024 Telephone [facility] [address] [place] [id number] Alejandrina Keith FNP Urologist gynocologist from Last 3 Months Immunizations Name Administration [...] 36.8 ??C (98.2 ??F) 06/26/2024 1:53 PM ES T Respiratory Rate - - Oxygen Saturation 96% [...] 01/01/2025 3:00 PM EDT Office Visit Joselin [facility] [address] [place] [address] [place], [place], [facility] 70 [place] [address] Health Maintenance Due Date Last Done Comments Alcohol/Substance Use Screening 1952 RSV Patients and Patients Aged 60 years or older (1 - 1-dose 75+ series) 2017 COVID-19 Vaccine ( season) 2023 01/25/2023, 02/13/2022, 02/03/2021, Additional history exists Influenza Vaccine (#1) 2023 , 04/03/2012, 01/31/2011, Additional history exists Depression Screening 12/04/2024 12/05/2023, 12/05/19 24 SDOH Screening 12/04/2024 12/05/2023 Tobacco Screening 06/26/2025 [...] EDT) Blood Venous blood specimen / Unknown [facility] LAB BLOOD ORDERABLES Taniya l Result * Lipid Panel, Standard (12/12/2023) Blood Venous blood specimen / Unknown [facility] LAB BLOOD ORDERABLES Taniya l Result EXTERNAL LAB from Last 3 Months or Most Recently Relevant to Health Maintenance Insurance [employer] [facility] Care Teams Heel Sorter Relationship Specialty Start Date End Date Alejandrina Keith FNP [address] [facility] [address] PCP - General Family Medicine 11/01/23
--- OUTSIDE RECORDS SUMMARY | 2024-08-03 15:47 | XMS_ITS | Encounter Summary ---
Author Organization [employer] Address [address] [place] [address] Care Team Providers Care Lacing String Cutter Name Role Phone Alejandrina Keith [facility] Primary Care Provider [phone] [phone] Encounter Details Date Type Department Care Team (Late st Contact Info) Description 01/02/2024 Orders Only [place] [facility] [address] [place] [address] ProviderYahaira MD Social History Tobacco Use Types [...] 01/01/2025 3:00 PM EDT Office Visit Joselin [facility] [address] [place] [address] [facility] 70 [place] [address] documented as of this encounter Procedures Procedure Name Priority Date/Time Associated Diagnosis Comments PROTHROMBIN TIME-INR Routine 12/31/2023 5:13 PM EDT documented in this encounter Results * Prothrombin Time-INR (12/31/2023 5:13 PM EDT) Blood Venous blood specimen / Unknown us Historical Provider LAB BLOOD ORDERABLES Taniya l Result documented in this encounter Visit Diagnoses Not on filedocumented in this encounter Care Teams Lacing String Cutter Relationship Specialty Start Date End Date [facility] [address] [place] [address] PCP - General Family Medicine 11/01/23 documented as of this encounter
--- OUTSIDE RECORDS SUMMARY | 2024-08-03 15:47 | XMS_ITS | Encounter Summary ---
Author Organization [employer] Address [address]t [place] [address] Care Team Providers Care Environmental Health Technician Name Role Phone [facility] Primary Care Provider +1 [phone] Encounter Details Date Type Department Care Team (Late st Contact Info) Description 04/30/2024 Orders Only [facility] [address] [place] [address] [place], [place], [facility] 70 [place] [address] Social History Tobacco Use Types Packs/Day Years [...] 01/01/2025 3:00 PM EDT Office Visit Joselin [facility] 70 [facility] [place] [address] [facility] Alejandrina [facility] 70 [place] [address] documented as of this encounter Procedures Procedure Name Priority Date/Time Associated Diagnosis Comments US PELVIC AND TRANSVAGINAL Routine 03/04/2024 11:08 AM EST documented in this encounter Results * US PELVIC AND TRANSVAGINAL (03/04/2024 11:08 AM EST) Anatomical Region Laterality Modality Ultrasound [facility] IMG US PROCEDURES Final R esult documented in this encounter Visit Diagnoses Not on filedocumented in this encounter Care Teams Environmental Health Technician Relationship Specialty Start Date End Date [facility] AlejandrinaRANDOLPH 70 [place] [address] PCP - General Family Medicine 11/01/23 documented as of this encounter
--- OUTSIDE RECORDS SUMMARY | 2024-08-03 15:47 | XMS_ITS | Encounter Summary ---
Author Organization [employer] Address [address] 7t [place] [address] Care Team Providers Care Reed Maker Name Role Phone [facility] Primary Care Provider +1 [phone] Encounter Details Date Type Department Care Team (Late st Contact Info) Description 03/07/2024 Orders Only [place] [facility] [address] [place] [address] [place], [place], [facility] 70 [place] [address] Social History Tobacco Use Types Packs/Day Years [...] Description 01/01/2025 3:00 PM EDT Office Visit [place] [facility] 70 [place] [address] [place], [place] [facility] 70 [place] [address] documented as of this encounter Procedures Procedure Name Priority Date/Time Associated Diagnosis Comments CULTURE, URINE, ROUTINE Routine 03/03/2024 7:57 AM EST documented in this encounter Results * Culture, Urine, Routine (03/03/2024 7:57 AM EST) Urine [facility] LAB MICROBIOLOGY - GENERA L ORDERABLES Final Result documented in this encounter Visit Diagnoses Not on filedocumented in this encounter Care Teams Reed Maker Relationship Specialty Start Date End Date Alejandrina Keith [facility] 70 [place] [address] PCP - General Family Medicine 11/01/23 documented as of this encounter
--- OUTSIDE RECORDS SUMMARY | 2024-08-03 15:47 | XMS_ITS | Encounter Summary ---
Author Organization [employer] Address [address] [facility] [facility] [address]t [place] [address] Care Team Providers Care Aircraft Landing Gear Inspector Name Role Phone [facility] Primary Care Provider [phone] [phone] Encounter Details Date Type Department Care Team (Late st Contact Info) Description 07/24/2024 Orders Only [place] [facility] [address] [place] [address] [place], [place], [facility] 70 [place] [address] Social History Tobacco Use Types Packs/Day Years [...] Description 01/01/2025 3:00 PM EDT Office Visit [place] [facility] 70 [place] [address] [place], [place] [facility] 70 [place] [address] documented as of this encounter Procedures Procedure Name Priority Date/Time Associated Diagnosis Comments PROTHROMBIN TIME-INR Routine 07/20/2024 11:01 AM EDT documented in this encounter Results * Prothrombin Time-INR (07/20/2024 11:01 AM EDT) Blood Venous blood specimen / Unknown [facility] LAB BLOOD ORDERABLES Taniya l Result documented in this encounter Visit Diagnoses Not on filedocumented in this encounter Care Teams Aircraft Landing Gear Inspector Relationship Specialty Start Date End Date Alejandrina Keith FNP 70 [place] [address] PCP - General Family Medicine 11/01/23 documented as of this encounter
--- OUTSIDE RECORDS SUMMARY | 2024-08-03 15:47 | XMS_ITS | Encounter Summary ---
Author Organization [employer] Address [address]t [place] [address] Care Team Providers Care Station Supervisor Name Role Phone [facility] Primary Care Provider [phone] [phone] Encounter Details Date Type Department Care Team (Late st Contact Info) Description 12/16/2023 Orders Only [place] [facility] [address] [place] [address] [place], [place], [facility] 70 [place] [address] Social History Tobacco Use Types Packs/Day Years [...] Joselin [facility] 70 [place] [address] [place], [place] [facility] 70 [place] [address] documented as of this encounter Procedures Procedure Name Priority Date/Time Associated Diagnosis Comments PROTHROMBIN TIME-INR Routine 12/12/2023 11:59 AM EDT documented in this encounter Results * Prothrombin Time-INR (12/12/2023 11:59 AM EDT) Blood Venous blood specimen / Unknown [facility] LAB BLOOD ORDERABLES Taniya l Result documented in this encounter Visit Diagnoses Not on filedocumented in this encounter Care Teams Station Supervisor Relationship Specialty Start Date End Date [facility] 70 [place] [address] PCP - General Family Medicine 11/01/23 documented as of this encounter
--- OUTSIDE RECORDS SUMMARY | 2024-08-03 15:47 | XMS_ITS | Encounter Summary ---
Author Organization [employer] Address [address] [place] [address] Care Team Providers Care Oxidized Finish Plater Name Role Phone [facility] Primary Care Provider [phone] [phone] Encounter Details Date Type Department Care Team (Late st Contact Info) Description 01/20/2024 Orders Only [place] [facility] [address] [place] [address] [place], [place], [facility] 70 [place] [address] Social History Tobacco Use Types Packs/Day Years [...] Description 01/01/2025 3:00 PM EDT Office Visit [place] [facility] 70 [place] [address] [place], [place] [facility] 70 [place] [address] documented as of this encounter Procedures Procedure Name Priority Date/Time Associated Diagnosis Comments PROTHROMBIN TIME-INR Routine 01/20/2024 11:43 AM EDT documented in this encounter Results * Prothrombin Time-INR (01/20/2024 11:43 AM EDT) Blood Venous blood specimen / Unknown [facility] LAB BLOOD ORDERABLES Taniya l Result documented in this encounter Visit Diagnoses Not on filedocumented in this encounter Care Teams Oxidized Finish Plater Relationship Specialty Start Date End Date Alejandrina Keith FNP 70 [place] [address] PCP - General Family Medicine 11/01/23 documented as of this encounter
== END 2024-08-03 13:43 | disposition home or self-care (01) ==
LOC: HO.ACS 13:18
PROVIDERS: PCP Family Medicine; Visit Provider Internal Medicine Medical Oncology
DX: Z79.01 Long term (current) use of 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 (principal)

== ENCOUNTER → 2024-08-03 13:18 | Outpatient (BNVA) | payer MEDICARE, SELFPAY | PROVIDERS: PCP Family Medicine; Visit Provider Internal Medicine Medical Oncology | DX: I26.99 Other pulmonary embolism without acute cor pulmonale (principal); Z51.81 Encounter for therapeutic drug level monitoring; Z79.01 Long term (current) use of 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 | CPT/HCPCS: 85610; 99211 ==

== ENCOUNTER 2024-08-31 13:25 | Outpatient (AMB) | payer MEDICARE, SELFPAY ==
[2024-08-31 13:33] LABS: Prothrombin Time Whole Bld POC 28.1 sec (11.1-13.5); ~PT, ~INR - Anti Coag Clinic 2.3 (0.9-1.1)
--- NOTE | 2024-08-31 13:41 | MHC.OFFVISCO ---
Intake Intake Visit Reasons: Anticoagulation Allergies Benzodiazepines Adverse Reaction (Severe, Verified 08/31/24 13:27) Drowsy codeine Adverse Reaction (Severe, Verified 08/31/24 13:27) Drowsy loratadine Adverse Reaction (Mild, Verified 08/31/24 13:27) Nausea Medication List - Last Reconciled 08/31/24 by Chasity Grullon, RN amlodipine 5 mg PO DAILY calcium carb-vit X6-[id number]-bubzbue caps PO DAILY levothyroxine 112 mcg PO DAILY nitrofurantoin monohyd/m-cryst 100 mg 1 cap PO BID simvastatin 20 mg PO QPM warfarin 5 mg See Protocol PO DAILY Nursing Note INR: 2.3 in therapeutic range of 2-3 Medications and supplements reviewed No changes in health, diet, medications, or supplements, Denies any signs and symptoms of bleeding or bruising or clotting. Bleeding, bruising, clotting discussed Nutritional guidance given Dose: 2.5mg X 6 days and 5mg X 1 day (Sat) F/U INR: 4 weeks Patient verbalizes understanding of instructions given Anti-Coag Initial Assessment Social Hx Patient Tobacco Use Status: Former Tobacco user Tobacco use type: Cigarette Smoking packs per day: 3 alcohol intake: current Alcohol intake frequency: 0-2 drinks per day Cardiovascular Hx: HTN Lung Disease HX: DVT/PE Endocrine Hx: Thyroid Disease Musculoskeletal Hx: Arthritis, Osteoporosis and Gout Blood Disorder Hx: Hyperlipidemia Hx: Bladder Disorders Cancer HX: No Psych. Illness/Depression: No Coding Level of Care Code Est Patient Level 1 Diagnoses Current use of anticoagulant therapy Z79.01 Assessment & Plan Assessment & Plan (1) Current use of anticoagulant therapy: Code(s): Z79.01 - termination clerk (current) use of 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 Category: Medical
--- OUTSIDE RECORDS SUMMARY | 2024-08-31 14:53 | XMS_ITS | Encounter Summary ---
Author Organization [employer] Address [address] 7t [place] [address] Care Team Providers Care Can Washer Name Role Phone [facility] Primary Care Provider [phone] [phone] Encounter Details Date Type Department Care Team (Late st Contact Info) Description 04/30/2024 Orders Only [place] [facility] 58 [place] [address] [place], [place], [facility] 70 [place] [address] Social History Tobacco Use Types Packs/Day Years [...] 01/01/2025 3:00 PM EDT Office Visit [place] [facility] 70 [facility] [place] [address] [facility] Alejandrina [facility] 70 [place] [address] documented as of this encounter Procedures Procedure Name Priority Date/Time Associated Diagnosis Comments US PELVIC AND TRANSVAGINAL Routine 03/04/2024 11:08 AM EST documented in this encounter Results * US PELVIC AND TRANSVAGINAL (03/04/2024 11:08 AM EST) Anatomical Region Laterality Modality Ultrasound [facility] IMG US PROCEDURES Final R esult documented in this encounter Visit Diagnoses Not on filedocumented in this encounter Care Teams Can Washer Relationship Specialty Start Date End Date [facility] AlejandrinaRANDLOPH 70 [place] [address] PCP - General Family Medicine 11/01/23 documented as of this encounter
--- OUTSIDE RECORDS SUMMARY | 2024-08-31 14:53 | XMS_ITS | Encounter Summary ---
Author Organization [employer] Address [address]t [place] [address] Care Team Providers Care Renal Nurse Name Role Phone [facility] Primary Care Provider [phone] [phone] Encounter Details Date Type Department Care Team (Late st Contact Info) Description 12/16/2023 Orders Only [place] [facility] 58 [place] [address] [place], [place], [facility] 70 [place] [address] Social History Tobacco Use Types Packs/Day Years [...] 01/01/2025 3:00 PM EDT Office Visit [place] [facility] 70 [place] [address] [place], [place] [facility] 70 [place] [address] documented as of this encounter Procedures Procedure Name Priority Date/Time Associated Diagnosis Comments PROTHROMBIN TIME-INR Routine 12/12/2023 11:59 AM EDT documented in this encounter Results * Prothrombin Time-INR (12/12/2023 11:59 AM EDT) Blood Venous blood specimen / Unknown [facility] LAB BLOOD ORDERABLES Taniya l Result documented in this encounter Visit Diagnoses Not on filedocumented in this encounter Care Teams Renal Nurse Relationship Specialty Start Date End Date [facility] 70 [place] [address] PCP - General Family Medicine 11/01/23 documented as of this encounter
--- OUTSIDE RECORDS SUMMARY | 2024-08-31 14:53 | XMS_ITS | Encounter Summary ---
Author Organization [employer] Address [address]t [place] [address] Care Team Providers Care Residential Manager Name Role Phone [facility] Primary Care Provider +1 [phone] Encounter Details Date Type Department Care Team (Late st Contact Info) Description 01/20/2024 Orders Only [place] [facility] [address] [place] [address] [place], [place], [facility] 70 [place] [address] Social History Tobacco Use Types Packs/Day Years [...] Description 01/01/2025 3:00 PM EDT Office Visit [place] [facility] 70 [place] [address] [place], [place] [facility] 70 [place] [address] documented as of this encounter Procedures Procedure Name Priority Date/Time Associated Diagnosis Comments PROTHROMBIN TIME-INR Routine 01/20/2024 11:43 AM EDT documented in this encounter Results * Prothrombin Time-INR (01/20/2024 11:43 AM EDT) Blood Venous blood specimen / Unknown [facility] LAB BLOOD ORDERABLES Taniya l Result documented in this encounter Visit Diagnoses Not on filedocumented in this encounter Care Teams Residential Manager Relationship Specialty Start Date End Date Alejandrina Keith FNP 70 [place] [address] PCP - General Family Medicine 11/01/23 documented as of this encounter
--- OUTSIDE RECORDS SUMMARY | 2024-08-31 14:53 | XMS_ITS | Encounter Summary ---
Author Organization [employer] Address [address] [facility] [address] [facility] [address]t [place] [address] Care Team Providers Care Dietitian Chief Name Role Phone Alejandrina Keith [facility] Primary Care Provider [phone] [phone] Encounter Details Date Type Department Care Team (Late st Contact Info) Description 01/02/2024 Orders Only [place] [facility] [address] [place] [address] ProviderYahaira MD Social History Tobacco Use Types [...] 01/01/2025 3:00 PM EDT Office Visit [place] [facility] 70 [place] [address] [facility] 70 [place] [address] documented as of this encounter Procedures Procedure Name Priority Date/Time Associated Diagnosis Comments PROTHROMBIN TIME-INR Routine 12/31/2023 5:13 PM EDT documented in this encounter Results * Prothrombin Time-INR (12/31/2023 5:13 PM EDT) Blood Venous blood specimen / Unknown us Historical Provider LAB BLOOD ORDERABLES Taniya l Result documented in this encounter Visit Diagnoses Not on filedocumented in this encounter Care Teams Dietitian Chief Relationship Specialty Start Date End Date [facility] 70 [place] [address] PCP - General Family Medicine 11/01/23 documented as of this encounter
--- OUTSIDE RECORDS SUMMARY | 2024-08-31 14:53 | XMS_ITS | Clinical Summary ---
Author Organization [employer] Address [address] [facility] 7t [place] [address] Care Team Providers Care Library Information Technician Name Role Phone Alejandrina Keith [facility] Primary Care Provider [phone] [phone] Allergies Active Allergy Reactions Criticality Noted Date Comments Benzodiazepines Unknown 05/06/2001 Codeine Unknown 05/06/2001 Loratadine Itching 06/28/2022 Medications warfarin (Coumadin) 5 MG tablet Take 5 mg by mouth Once per day. MF 5 mg , all other days 2.5 mg 023 Active estradiol (Estrace) 0.1 MG/GM vaginal cream 1 g intravaginally Saturday and Saturday nights.. 023 Active Calcium Carb-Cholecalcife rol (Oyster Shell Calcium w/D) 500-5 MG-MCG tablet Take 1 tablet by mouth. Active levothyroxine (Synthroid, Levoxyl) 112 MCG tabletIndications :Acquired hypothyroidism Take 1 tablet (112 mcg) by mouth before breakfast. 100 tablet 3 025 Active simvastatin (Zocor) 20 MG tabletIndications :Hyperlipidemia, unspecified hyperlipidemia type Take 1 tablet (20 mg) by mouth in the evening. 100 tablet 3 025 Active fluticasone furoate (Arnuity Ellipta) 100 MCG/ACT inhalerIndication s:Subacute cough Inhale 1 puff Once per day. Rinse mouth with water after use to reduce aftertaste and incidence of candidiasis. Do not swallow. 1 each 025 Active amLODIPine (Norvasc) 5 MG tabletIndications :Primary hypertension TAKE 1 TABLET BY MOUTH ONCE DAILY 100 tablet 3 025 Active amLODIPine (Norvasc) 5 MG tabletIndications :Primary hypertension Take 1 tablet (5 mg) by mouth Once per day. 90 tablet 3 024 2024 Discontinued Active Problems Problem Noted Date Diagnosed Date [...] resolved. The patient had been transferred to [facility] from [facility] for further care and was then flown to [facility] in [place], [place] where she had an open chest surgery for endarterectomies of the aorta and bilateral pulmonary vasculature. She was seen in followup at [facility] for 4 years Off cOumadin since 09/2013,ON Xarelto Bilateral sensorineural hearing loss 09/30/2013 12/05/2023 Overview (12/05/2023): Sensorineural Hearing Loss In Both Ears Encounters Date Type Department Care Team Description 08/12/2024 Refill [place] [facility] 70 [place] [address] [place], [place] [facility] Primary hypertension 07/24/2024 Orders Only [place] [facility] Management [address] [place] [address] [facility] PURCHASING MANAGER 06/26/2024 2:20 PM EST Office Visit [place] [facility] 70 [facility] [place] [address] Alejandrina Keith FNP Uterine prolapse (Primary Dx); Acquired hypothyroidism; Hyperlipidemia, unspecified hyperlipidemia type; History of pulmonary embolism; Anticoagulated on warfarin; Hearing loss, unspecified hearing loss type, unspecified laterality; Subacute cough; Health care maintenance from Last 3 Months Immunizations Name Administration [...] 01/01/2025 3:00 PM EDT Office Visit [place] [facility] [address] [place] [address] [facility] 70 [place] [address] Health Maintenance Due Date Last Done Comments [...] Procedure Name Priority Date/Time Associated Diagnosis Comments AMB REFERRAL TO UROGYNECOLOGY Routine 07/24/2024 Complete uterovaginal prolapse Abnormal uterine and vaginal bleeding, unspecified PROTHROMBIN TIME-INR Routine 07/20/2024 11:01 AM EDT LIPID PANEL, STANDARD Routine 12/12/2023 Hyperlipidemia, unspecified hyperlipidemia type from Last 3 Months or Most Recently Relevant to Health Maintenance Results * Referral to Urogynecology (07/24/2024) [facility] OUTPATIENT REFERRAL ORDER DMITRI Final Result * Prothrombin Time-INR (07/20/2024 11:01 AM EDT) Blood Venous blood specimen / Unknown [facility] LAB BLOOD ORDERABLES Taniya l Result * Lipid Panel, Standard (12/12/2023) Blood Venous blood specimen / Unknown Alejandrina Keith [facility] LAB BLOOD ORDERABLES Taniya deepa Result EXTERNAL LAB from Last 3 Months or Most Recently Relevant to Health Maintenance Insurance [employer] [place] [id number] [facility] Care Teams Library Information Technician Relationship Specialty Start Date End Date Alejandrina Keith FNP 70 [place] [facility] [place] [address] PCP - General Family Medicine 11/01/23
--- OUTSIDE RECORDS SUMMARY | 2024-08-31 14:53 | XMS_ITS | Encounter Summary ---
Author Organization [employer] Address [address] 7t [place] [address] Care Team Providers Care Salt Maker Name Role Phone [facility] Primary Care Provider [phone] [phone] Encounter Details Date Type Department Care Team (Late st Contact Info) Description 03/07/2024 Orders Only [place] [facility] [address] [place] [address] [place], [place], [facility] 70 [place] [address] Social History Tobacco Use Types Packs/Day Years [...] Description 01/01/2025 3:00 PM EDT Office Visit [place] [facility] 70 [place] [address] [place], [place] [facility] 70 [place] [address] documented as of this encounter Procedures Procedure Name Priority Date/Time Associated Diagnosis Comments CULTURE, URINE, ROUTINE Routine 03/03/2024 7:57 AM EST documented in this encounter Results * Culture, Urine, Routine (03/03/2024 7:57 AM EST) Urine [facility] LAB MICROBIOLOGY - GENERA L ORDERABLES Final Result documented in this encounter Visit Diagnoses Not on filedocumented in this encounter Care Teams Salt Maker Relationship Specialty Start Date End Date Alejandrina Keith [facility] 70 [place] [address] PCP - General Family Medicine 11/01/23 documented as of this encounter
--- OUTSIDE RECORDS SUMMARY | 2024-08-31 14:53 | XMS_ITS | Encounter Summary ---
Author Organization [employer] Address [address]t [place] [address] Care Team Providers Care Manager Country Name Role Phone [facility] Primary Care Provider [phone] [phone] Encounter Details Date Type Department Care Team (Late st Contact Info) Description 07/24/2024 Orders Only [place] [facility] [address] [place] [address] [place], [place], [facility] 70 [place] [address] Social History Tobacco Use Types Packs/Day Years [...] Description 01/01/2025 3:00 PM EDT Office Visit [place] [facility] 70 [place] [address] [place], [place] [facility] 70 [place] [address] documented as of this encounter Procedures Procedure Name Priority Date/Time Associated Diagnosis Comments PROTHROMBIN TIME-INR Routine 07/20/2024 11:01 AM EDT documented in this encounter Results * Prothrombin Time-INR (07/20/2024 11:01 AM EDT) Blood Venous blood specimen / Unknown [facility] LAB BLOOD ORDERABLES Taniya l Result documented in this encounter Visit Diagnoses Not on filedocumented in this encounter Care Teams Manager Country Relationship Specialty Start Date End Date Alejandrina Keith FNP 70 [place] [address] PCP - General Family Medicine 11/01/23 documented as of this encounter
== END 2024-08-31 13:46 | disposition home or self-care (01) ==
LOC: HO.ACS 13:25
PROVIDERS: PCP Family Medicine; Visit Provider Internal Medicine Medical Oncology
DX: Z79.01 Long term (current) use of 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 (principal)

== ENCOUNTER → 2024-08-31 13:25 | Outpatient (BNVA) | payer MEDICARE, SELFPAY | PROVIDERS: PCP Family Medicine; Visit Provider Internal Medicine Medical Oncology | DX: I26.99 Other pulmonary embolism without acute cor pulmonale (principal); Z79.01 Long term (current) use of 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; Z51.81 Encounter for therapeutic drug level monitoring | CPT/HCPCS: 85610; 99211 ==

== ENCOUNTER → 2024-09-28 13:20 | Outpatient (BNVA) | payer MEDICARE, SELFPAY | PROVIDERS: PCP Family Medicine; Visit Provider Internal Medicine Medical Oncology | DX: I26.99 Other pulmonary embolism without acute cor pulmonale (principal); Z79.01 Long term (current) use of 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; Z51.81 Encounter for therapeutic drug level monitoring | CPT/HCPCS: 85610; 99211 ==

== ENCOUNTER 2024-10-16 15:34 | Outpatient (AMB) | payer MEDICARE, SELFPAY ==
--- OUTSIDE RECORDS SUMMARY | 2024-10-16 15:36 | XMS_ITS | Encounter Summary ---
Author Organization [employer] Address [address] [facility] [address] [address] [address] 7t [place] [address] Care Team Providers Care Corrections Lieutenant Name Role Phone [facility] Primary Care Provider [phone] [phone] Encounter Details Date Type Department Care Team (Late st Contact Info) Description 04/30/2024 Orders Only [place] [facility] [address] [place] [address] [place], [place], [facility] 70 [place] [address] Social History Tobacco Use Types Packs/Day Years [...] Care Team (Late st Contact Info) Description 10/22/2024 12:00 PM EDT Office Visit [facility] [address] [facility] [place] [address] [facility] [address] [facility] [place] [address] 01/01/2025 3:00 PM EDT Office Visit [facility] 70 [place] [address] [facility] 70 [facility] [place] [address] documented as of this encounter Procedures Procedure Name Priority Date/Time Associated Diagnosis Comments US PELVIC AND TRANSVAGINAL Routine 03/04/2024 11:08 AM EST documented in this encounter Results * US PELVIC AND TRANSVAGINAL (03/04/2024 11:08 AM EST) Anatomical Region Laterality Modality Ultrasound [facility] IM US PROCEDURES Final R esult documented in this encounter Visit Diagnoses Not on filedocumented in this encounter Care Teams Corrections Lieutenant Relationship Specialty Start Date End Date [facility] [address] [place] [address] [place] [address] PCP - General Family Medicine 11/01/23 documented as of this encounter
[2024-10-16 15:39] LABS: ~PT, ~INR - Anti Coag Clinic 2.6 (0.9-1.1)
--- NOTE | 2024-10-16 15:42 | MHC.OFFVISCO ---
Intake Intake Visit Reasons: Anticoagulation Allergies Benzodiazepines Adverse Reaction (Severe, Verified 10/16/24 15:35) Drowsy codeine Adverse Reaction (Severe, Verified 10/16/24 15:35) Drowsy loratadine Adverse Reaction (Mild, Verified 10/16/24 15:35) Nausea Medication List - Last Reconciled 10/16/24 by Chasity Grullon RN amlodipine 5 mg PO DAILY calcium carb-vit D9-Bw-ohemyyi caps PO DAILY levothyroxine 112 mcg PO DAILY nitrofurantoin monohyd/m-cryst 100 mg 1 cap PO BID simvastatin 20 mg PO QPM warfarin 5 mg See Protocol PO DAILY Nursing Note INR: 2.6 in therapeutic range of 2-3 Pt is scheduled for Vag Hyst on 10/26/24 with a 5 days hold of warfarin, no lovenox. She states in the pre-op workup, CXR showed a mass and a heart murmer was detected. SHe has to go for further testing with an echocardiogram and ct scan of chest both scheduled for 10/20/24. Surgeon told pt to plan on surgery for 10/26/24 for now until further testing done 10/20/24 Medications and supplements reviewed No changes in health, diet, medications, or supplements, Denies any signs and symptoms of bleeding or bruising or clotting. Bleeding, bruising, clotting discussed Nutritional guidance given Dose: same dose of 2.5mg X 6 days and 5mg X 1 day (Sat). If surgery still on then last dose of warfarin will be 10/20/24. Pt will start holding on sat10/21/24 F/U INR: 11/02/24 Patient verbalizes understanding of instructions with read back given Anti-Coag Initial Assessment Social Hx Patient Tobacco Use Status: Former Tobacco user Tobacco use type: Cigarette Smoking packs per day: 3 alcohol intake: current Alcohol intake frequency: 0-2 drinks per day Cardiovascular Hx: HTN Lung Disease HX: DVT/PE Endocrine Hx: Thyroid Disease Musculoskeletal Hx: Arthritis, Osteoporosis and Gout Blood Disorder Hx: Hyperlipidemia Hx: Bladder Disorders Cancer HX: No Psych. Illness/Depression: No Coding Level of Care Code Est Patient Level 1 Diagnoses Current use of anticoagulant therapy Z79.01 Results AMB INR Fingerstick AMB INR Fingerstick 2.6 Last Edit by Chasity Grullon RN on 10/16/24 15:39 interface delay Assessment & Plan Assessment & Plan (1) Current use of anticoagulant therapy: Code(s): Z79.01 - termite renewal inspector (current) use of 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 Category: Medical
== END 2024-10-16 16:03 | disposition home or self-care (01) ==
LOC: HO.ACS 15:34
PROVIDERS: PCP Family Medicine; Visit Provider Internal Medicine Medical Oncology
DX: Z79.01 Long term (current) use of 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 (principal)

== ENCOUNTER → 2024-10-16 15:34 | Outpatient (BNVA) | payer MEDICARE, SELFPAY | PROVIDERS: PCP Family Medicine; Visit Provider Internal Medicine Medical Oncology | DX: I26.99 Other pulmonary embolism without acute cor pulmonale (principal); Z79.01 Long term (current) use of 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; Z51.81 Encounter for therapeutic drug level monitoring | CPT/HCPCS: 85610; 99211 ==

== ENCOUNTER 2024-11-04 12:59 | Outpatient (AMB) | payer MEDICARE, SELFPAY ==
[2024-11-04 13:15] LABS: Prothrombin Time Whole Bld POC 21.8 sec (11.1-13.5); ~PT, ~INR - Anti Coag Clinic 1.8 (0.9-1.1)
--- NOTE | 2024-11-04 13:31 | MHC.OFFVISCO ---
Intake Intake Visit Reasons: Anticoagulation Allergies Benzodiazepines Adverse Reaction (Severe, Verified 11/04/24 13:15) Drowsy codeine Adverse Reaction (Severe, Verified 11/04/24 13:15) Drowsy loratadine Adverse Reaction (Mild, Verified 11/04/24 13:15) Nausea Medication List - Last Reconciled 11/04/24 by Lindsay Melendez, RN amlodipine 5 mg PO DAILY calcium carb-vit U3-Vg-vrpakni caps PO DAILY levothyroxine 112 mcg PO DAILY nitrofurantoin monohyd/m-cryst 100 mg 1 cap PO BID simvastatin 20 mg PO QPM warfarin 5 mg See Protocol PO DAILY Nursing Note PT.HAD VAG.HYST ON 10/26 AND STATES THAT WHILE STILL UNCOMFORTABLE SHE HAS STOPPED OXY AND IS DOING WELL WITH JUST TYLENOL. F/C HAS BEEN REMOVED, AND WARFARIN DOSE WAS RESUMED.SHE HAS NO ANTIBIOTICS OR OTHER NEW MEDS. WILL BOOST TO 5MGM TODAY THEN RESUME USUAL DOSE( 5MG X1 2.5MG X6) AND FOLLOW-UP IN 2 WEEKS. GOOD UNDERSTANDING OF DOSING INSTR. Anti-Coag Initial Assessment Social Hx Patient Tobacco Use Status: Former Tobacco user Tobacco use type: Cigarette Smoking packs per day: 3 alcohol intake: current Alcohol intake frequency: 0-2 drinks per day Cardiovascular Hx: HTN Lung Disease HX: DVT/PE Endocrine Hx: Thyroid Disease Musculoskeletal Hx: Arthritis, Osteoporosis and Gout Blood Disorder Hx: Hyperlipidemia Hx: Bladder Disorders Cancer HX: No Psych. Illness/Depression: No Coding Level of Care Code Est Patient Level 1 Diagnoses Current use of anticoagulant therapy Z79.01 Assessment & Plan Assessment & Plan (1) Current use of anticoagulant therapy: Code(s): Z79.01 - watermaster (current) use of 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 Category: Medical
--- OUTSIDE RECORDS SUMMARY | 2024-11-04 13:49 | XMS_ITS | Encounter Summary ---
Author Organization [employer] Address [address] [place] [address] Care Team Providers Care Ophthalmic Lens Inspector Name Role Phone [facility] Primary Care Provider [phone] Encounter Details Date Type Department Care Team (Late st Contact Info) Description 04/30/2024 Orders Only [facility] [address] [place] [address] [place], [place], [facility] [address] [place] [address] Social History Tobacco Use Types Packs/Day Years [...] 01/01/2025 3:00 PM EDT Office Visit [facility] [address] [place] [address] [facility] Alejandrina [facility] [address] [place] [address] documented as of this encounter Procedures Procedure Name Priority Date/Time Associated Diagnosis Comments US PELVIC AND TRANSVAGINAL Routine 03/04/2024 11:08 AM EST documented in this encounter Results * US PELVIC AND TRANSVAGINAL (03/04/2024 11:08 AM EST) Anatomical Region Laterality Modality Ultrasound [facility] IMG US PROCEDURES Final R esult documented in this encounter Visit Diagnoses Not on filedocumented in this encounter Care Teams Ophthalmic Lens Inspector Relationship Specialty Start Date End Date [facility] AlejandrinaRANDOLPH [address] [place] [address] PCP - General Family Medicine 11/01/23 documented as of this encounter
== END 2024-11-04 13:35 | disposition home or self-care (01) ==
LOC: HO.ACS 12:59
PROVIDERS: PCP Family Medicine; Visit Provider Internal Medicine Medical Oncology
DX: Z79.01 Long term (current) use of 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 (principal)

== ENCOUNTER → 2024-11-04 12:59 | Outpatient (BNVA) | payer MEDICARE, SELFPAY | PROVIDERS: PCP Family Medicine; Visit Provider Internal Medicine Medical Oncology | DX: Z79.01 Long term (current) use of 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 (principal) | CPT/HCPCS: 85610; 99211 ==

== ENCOUNTER 2024-11-17 13:00 | Outpatient (AMB) | payer MEDICARE, SELFPAY ==
--- OUTSIDE RECORDS SUMMARY | 2024-11-11 23:59 | XMS_ITS | Continuity of Care Document ---
Author Organization [facility] Address [address] [place] [address]- Care Team Providers Care Head Custodian Name Role Phone Gilma Hutson MD Primary Care Physician Encounter [facility] Date(s): 10/12/24 - 11/11/24 [facility] [address] [place] [address]- Attending Physician: Ian Peacock Admitting Physician: AdmtrIan Referring Physician: Admtr [id number] Encounter Type: Triage Allergies, Adverse Reactions, Alerts Substance Criticality Severity Reaction Reaction Severity Status codeine pass out Active Medications amLODIPine 5 mg oral tablet 0 Refills, Maintenance, 07/24/24 9:09:00 AM EDT, Partial fill upon patient request if the prescription is for a schedule II opioid drug. Start Date: 07/24/24 Status: Ordered Repeat number: 1 Calcium And Vitamin D Combination By Mouth, 0 Refills, Maintenance, 07/24/24 9:09:00 AM EDT, Partial fill upon patient request if the prescription is for a schedule II opioid drug. Start Date: 07/24/24 Status: Ordered Repeat number: 1 levothyroxine 0.112 mg oral tablet 0 Refills, Maintenance, 07/24/24 9:09:00 AM EDT, Partial fill upon patient request if the prescription is for a schedule II opioid drug. Start Date: 07/24/24 Status: Ordered Repeat number: 1 MiraLax oral powder for reconstitution = 17 Gm, By Mouth, Daily, dissolve in 4 to 8 oz of beverage, # 238 Gm, 0 Refills, Maintenance, 10/26/24 11:04:00 AM EDT, REC Powder, [facility] #[id number], Partial fill upon patient request if the prescription is for a schedule II opioid drug., 17 Gm By Mouth Daily,x14 days,Instr:dissolve in 4to 8 oz of beverage, 162, cm, 10/12/24 9:32:00 EDT, Height, 73.3, kg, 10/26/24 7:04:00 EDT, Dry Weight Start Date: 10/26/24 Stop Date: 11/09/24 Status: Ordered Quantity: 238.0 Unit: g Repeat number: 1 Multivitamin 0 Refills, Maintenance, 07/24/24 9:09:00 AM EDT, Partial fill upon patient request if the prescription is for a schedule II opioid drug. Start Date: 07/24/24 Status: Ordered Repeat number: 1 oxyCODONE 5 mg oral tablet 5 mg, 1, tablet, By Mouth, Every 4 hours, PRN, if needed for pain, # 30 tablet, Refills 0, Tot. Refills 0, Acute 11/19/24 8:10:00 PM EDT, for pain, 10/29/24 8:09:00 PM EDT, [id number], Partial fill upon patient request if the prescription is for a schedule II opioid drug., 162, cm, 10/26/24 17:26:00 EDT, Height, 73.3, kg, 10/26/24 17:50:00 EDT, Dry Weight Start Date: 10/29/24 Stop Date: 11/19/24 Status: Ordered Quantity: 30.0 Unit: tablet Repeat number: 1 Senna 8.6 mg oral tablet 17.2 mg, 2, tablet, By Mouth, Daily at bedtime, # 20 tablet, Refills 0, Tot. Refills 0, Maintenance, 10/26/24 11:05:00 AM EDT, [id number], Partial fill upon patient request if the prescription is for a schedule II opioid drug., 162, cm, 10/12/24 9:32:00 EDT, Height, 73.3, kg, 10/26/24 7:04:00 EDT, Dry Weight Start Date: 10/26/24 Stop Date: 11/05/24 Status: Ordered Quantity: 20.0 Unit: tablet Repeat number: 1 simethicone 180 mg oral capsule 1 capsule = 180 mg, By Mouth, 4 times a day, # 40 capsule, 0 Refills, Maintenance, 10/26/24 11:05:00AM EDT, Capsule, [facility] #[id number], Partial fill upon patient request if the prescriptionis for a schedule II opioid drug., 162, cm, 10/12/24 9:32:00 EDT, Height, 73.3, kg, 10/26/24 7:04:00 EDT, Dry Weight Start Date: 10/26/24 Stop Date: 11/05/24 Status: Ordered Quantity: 40.0 Unit: capsule Repeat number: 1 simvastatin 20 mg oral tablet Refills 0, Maintenance, 07/24/24 9:09:00 AM EDT, Partial fill upon patient request if the prescription is for a schedule II opioid drug. Start Date: 07/24/24 Status: Ordered Repeat number: 1 Tylenol 325 mg oral tablet 650 mg, 2, tablet, By Mouth, Every 4 hours, PRN, # 50 tablet, Refills 0, Tot. Refills 0, Maintenance, for pain, 10/26/24 11:05:00 AM EDT, Route to Pharmacy Electronically, [facility] #[id number],Partial fill upon patient request if the prescription is for a schedule II opioid drug., 162, cm, 10/12/24 9:32:00 EDT, Height, 73.3, kg, 10/26/24 7:04:00 EDT, Dry Weight Start Date: 10/26/24 Stop Date: 11/09/24 Status: Ordered Quantity: 50.0 Unit: tablet Repeat number: 1 warfarin 5 mg oral tablet 0 Refills, Maintenance, 07/24/24 9:09:00 AM EDT, Partial fill upon patient request if the prescription is for a schedule II opioid drug. Start Date: 07/24/24 Status: Ordered Repeat number: 1 Problem List Condition Confirmation Course Effective Dates Status H ealth Status Informant Hypertension Confirmed Active Chronic pulmonary embolism Confirmed Active Hyperlipidemia Confirmed Active Hypothyroidism Confirmed Active Anticoagulant long-term use Confirmed Active Aortic stenosis, moderate Confirmed Active Social History Social History Type Response Smoking Status Former smoker, quit more than 30 days ago; Other: 3 packs a day; entered on: 07/24/24 Sex Sex Representation Female (finding) Patient Care team information Care Team Personnel Name: Haresh ZARAGOZA, Gilma Obregon Position: Reference Physician Member Role: PCP Address: [address] [place] [address]- Telecom: Care Team Related Persons Name: JAS SINGH Insurance Providers Guarantor name: JUANITA SINGH [facility] Information #: 1 [facility] Payer Identifier: NA Member Number: [id number] Group Number: [id number] Subscriber Identifier: [id number] Relationship to Subscriber: self Coverage Type: Medicare HMO Coverage Verification Date: NA Telecom: NA Address: NA
--- NOTE | 2024-11-17 13:22 | MHC.OFFVISCO ---
Intake Intake Visit Reasons: Anticoagulation Allergies Benzodiazepines Adverse Reaction (Severe, Verified 11/17/24 13:06) Drowsy codeine Adverse Reaction (Severe, Verified 11/17/24 13:06) Drowsy loratadine Adverse Reaction (Mild, Verified 11/17/24 13:06) Nausea Medication List - Last Reconciled 11/17/24 by Aleshia Bradley RN acetaminophen 650 mg PO Q4H PRN amlodipine 5 mg PO DAILY calcium carb-vit A5-Pu-zpfnnny caps PO DAILY levothyroxine 112 mcg PO DAILY sennosides (senna) 17.2 mg PO BEDTIME simethicone 180 mg PO QID simvastatin 20 mg PO QPM warfarin 5 mg See Protocol PO DAILY Nursing Note INR: 3.0 in therapeutic range Medications and supplements reviewed Healing post uterin hysterectomy for prolapse uterus - perineum healing, no longer taking oxycondone, chore tender but doing much better Denies any signs and symptoms of bleeding or bruising or clotting. Bleeding, bruising, clotting discussed Nutritional guidance given- Resume weekly greens Dose: 2.5MG DAILY F/U INR: 3 WEEKS Patient verbalizes understanding of instructions given Anti-Coag Initial Assessment Social Hx Patient Tobacco Use Status: Former Tobacco user Tobacco use type: Cigarette Smoking packs per day: 3 alcohol intake: current Alcohol intake frequency: 0-2 drinks per day Cardiovascular Hx: HTN Lung Disease HX: DVT/PE Endocrine Hx: Thyroid Disease Musculoskeletal Hx: Arthritis, Osteoporosis and Gout Blood Disorder Hx: Hyperlipidemia Hx: Bladder Disorders Cancer HX: No Psych. Illness/Depression: No Coding Level of Care Code Est Patient Level 1 Diagnoses Current use of anticoagulant therapy Z79.01 Results AMB INR Fingerstick AMB INR Fingerstick 3.0 Last Edit by Aleshia Bradley RN on 11/17/24 13:18 manual entry Assessment & Plan Assessment & Plan (1) Current use of anticoagulant therapy: Code(s): Z79.01 - jail (current) use of 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 Category: Medical
[2024-11-17 13:35] LABS: Prothrombin Time Whole Bld POC 35.8 sec (11.1-13.5); ~PT, ~INR - Anti Coag Clinic 3.0 (0.9-1.1)
--- OUTSIDE RECORDS SUMMARY | 2024-11-17 14:03 | XMS_ITS | Clinical Summary ---
Author Organization [facility] Address [address] [place] [id number] Phone Care Team Providers Care Street Flusher Driver Name Role Phone Gilma Hutson MD Primary Care Provider Allergies Active Allergy Reactions Criticality Noted Date Comments Benzodiazepines 05/06/2001 Codeine 05/06/2001 Hydrocodone-Acetaminophen 04/27/2002 Breathing problems Loratadine Itching 06/28/2022 Medications amLODIPine (NORVASC) 5 MG tablet Take 2.5 mg by mouth daily. 3 Active levothyroxine (SYNTHROID, LEVOTHROID) 112 MCG tablet Take 112 mcg by mouth every morning. 3 Active simvastatin (ZOCOR) 20 MG tablet Take 20 mg by mouth every evening. 3 Active warfarin (COUMADIN) 5 MG tablet Take 5 mg by mouth daily. 3 Active calcium carbonate-lois min D3 500 mg-200 units per tablet Take 1 tablet by mouth. Active estradioL (ESTRACE) 0.01 % (0.1 mg/gram) vaginal cream 1 g intravaginally Saturday and Saturday nights.. 3 Active omeprazole (PRILOSEC) 10 MG capsule Take 10 mg by mouth daily. Active Active Problems Problem Noted Date Diagnosed Date Acute arthritis 06/21/2023 Assessment & Plan (06/23/2023 8:45 PM EST): Wkup for inflammatory arthropathy in progress - not able to get synovial fluid Seen by ortho Abx stopped 06/22, steroids started 06/22 -Factor 14.7 - uric acid not elevated -Lyme pending JONI, CCP, double-stranded DNA pending -Dr. Rufina Mazariegos recommends discharge tomorrow to complete 1 week steroids and will need follow-up with rheumatology - pain control, cont acetaminophen, oxycodone, trial stopping morphine Preop examination 06/21/2023 Septic arthritis 06/21/2023 Chronic thromboembolic disease 10/17/2006 Overview (06/21/2023): While on HRT, dx at [facility] and transferred to [facility] for pulmonary thromboendarterectomy surgery. complicated by postsurgical cardiac arrest and infection, had an IVC filter placed which has remained in place. She remains on warfarin Assessment & Plan (06/23/2023 8:42 PM EST): Pt with hx of massive PE 20 yrs ago with IVC filter and s/p thrombectomy with cardiac arrest post operatively, Resume coumadin -If INR is less than 2 would also give DVT prophylaxis today Immunizations Immunization Administration Dates Next Due COVID-19 (Pre-02/18) Pfizer Vaccine, Bivalent 12 + 02/13/2022 Social History Tobacco Use Types Packs/Day Years Used Date Smoking Tobacco: Former Cigarettes Q uit: 1972 Tobacco Cessation:Counseling Given: No Child or Family Care Answer Date Record ed Do you have problems with on e of the following making it difficult for you to work, study, or receive health care? No 02/14/2022 Education Answer Date Recorded Are you interested in more education? Not on janes e 02/24/2024 Are you concerned about learning? Not on file 02/24/2024 No 02/24/2024 No 02/24/2024 Food Answer Date Recorded Within the past 6 months we worried whether our food would run out before we got money to buy more. Never True 06/22/2023 Within the past 6 months the food we bought just didn't last and we didn't have enough money to get more. Never True Residential Stability Answer Date Recor ded What is your housing situation today? I have bell sing 06/22/2023 How many times have you move d in the past 12 months? Zero (I did not move) 06/22/2023 Paying for Meds Answer Date Recorded Do you have trouble paying for medicines? No 06/22/2023 Paying Utility Bills Answer Date Record ed Do you have trouble paying your heating or elect ricity bill? No 06/22/2023 Transportation Answer Date Recorded Has the lack of transportati on kept you from medical appointments or from getting medications? No 06/22/2023 Unemployment Answer Date Recorded Are you currently unemployed or working on a part-time or temporary basis, and looking for work? No 02/14/2022 Digital Access Answer Date Recorded Yes 06/22/2023 No 06/22/2023 Do you have reliable internet access at home? No 06/22/2023 Do you have a device (e.g., phone, tablet, computer) with a working camera? No 06/22/2023 Intimate Partner Violence Answer Date R ecorded Are you denied basic needs s uch as food, clothing, or medical care? No 06/22/2023 In the past 12 months have y ou been in a relationship with a person who hurts, threatens, or tries to control you? No 06/22/2023 Are you denied basic needs s uch as food, clothing, or medical care? No 06/22/2023 In the past 12 months have y ou been in a relationship with a person who hurts, threatens, or tries to control you? No 06/22/2023 Comments Unknown Sex and Gender Information Value Date Recorded Sex Assigned at Not on file Legal Sex Female 7:11 PM EST Gender Identity Not on file Sexual Orientation Not on file Last Filed Vital Signs Vital Sign Reading Time Taken Comments Blood Pressure 118/73 07/03/2024 8:30 AM EST Pulse 96 07/03/2024 8:30 AM EST Temperature 36.8 C (98.3 F) 07/03/2024 8:30 AM EST Respiratory Rate 16 07/03/2024 8:30 AM EST Oxygen Saturation 96% 07/03/2024 8:30 AM EST Inhaled Oxygen Concentration - - Weight 68 kg (150 lb) 05/20/2024 8:29 AM EST Height 162.6 cm (5' 4 ) 05/20/2024 8:29 AM EST Body Mass Index 25.75 05/20/2024 8:29 AM EST Plan of Treatment Health Maintenance Due Date Last Done Comments DEPRESSION SCREENING 1954 ZOSTER VACCINES (1 of 2) 1992 RSV VACCINE (1 - 1-dose 75+ series) 2017 TSH LEVEL 07/19/2023 07/18/2022, 02/27, 07/07/2020, Additional history exists COVID-19 VACCINE ( season) 2023 02/13/2022, 02/03/2021, 07/15/2020, Additional history exists Adult Td,Tdap Booster 02/29/2028 02/28/2018 PNEUMOCOCCAL VACCINES (50+ years) Completed 01/30/2018, 05/06/2008, 01/23/2002 OSTEOPOROSIS SCREENING INITIAL (ONE-TIME) Completed 04/01/2020 HEPATITIS A VACCINES Aged Out No long er eligible based on patient's age to complete this topic HIB VACCINES Aged Out No longer eligi ble based on patient's age to complete this topic MENINGOCOCCAL VACCINES (ACWY) Aged Out No longer eligible based on patient's age to complete this topic MENINGOCOCCAL VACCINES (B) Aged Out N o longer eligible based on patient's age to complete this topic Medical Devices Not on file Insurance [employer] REPLACEMENT MEDICARE PART A & B [employer] REPL[employer]EMENT MEDICARE PART A & B [employer]ARE REPLACEMENT MEDICARE PART A & B [employer] MEDICARE REPLACEMENT MEDICARE PART A & B [employer] MEDICARE REPLACEMENT MEDICARE PART A & [place] [employer] [id number] MEDICARE PART A & B [employer] MEDICARE REPLACEMENT MEDICARE PART A & B [employer] MEDICARE REPLACEMENT MEDICARE PART A & B [place] MEDICARE REPLACEMENT MEDICARE PART A & B Advance Directives For more information, please contact: [phone] (9AM - 5PM Subha/[facility], Saturday-Saturday) * Full Code (Latest Code Status on File) Date Activated Date Inactivated Comments 06/21/2023 9:46 PM Question Answer Comments Code Status Confirmed With: Patient Care Teams Street Flusher Driver Relationship Specialty Start Date End Date Gilma Hutson MD [address] [place] [id number] PCP - General Family Medicine 05/20/24 Additional Source Comments The information contained in this document represents components of the legal health record. It is not the complete legal health record.[facility]
--- OUTSIDE RECORDS SUMMARY | 2024-11-17 14:03 | XMS_ITS | Encounter Summary ---
Author Organization [employer] Address [address] [place] [address] Care Team Providers Care Nut Process Helper Name Role Phone [facility] Primary Care Provider [phone] Encounter Details Date Type Department Care Team (Late st Contact Info) Description 12/16/2023 Orders Only [facility] [address] [place] [address] [place], [place], [facility] [address] [place] [address] Social History Tobacco Use Types Packs/Day Years [...] 01/01/2025 3:00 PM EDT Office Visit Joselin [facility] [address] [place] [address] [place], [place] [facility] [address] [place] [address] documented as of this encounter Procedures Procedure Name Priority Date/Time Associated Diagnosis Comments PROTHROMBIN TIME-INR Routine 12/12/2023 11:59 AM EDT documented in this encounter Results * Prothrombin Time-INR (12/12/2023 11:59 AM EDT) Blood Venous blood specimen / Unknown [facility] LAB BLOOD ORDERABLES Taniya l Result documented in this encounter Visit Diagnoses Not on filedocumented in this encounter Care Teams Nut Process Helper Relationship Specialty Start Date End Date [facility] [address] [place] [address] PCP - General Family Medicine 11/01/23 documented as of this encounter
== END 2024-11-17 13:30 | disposition home or self-care (01) ==
LOC: HO.ACS 13:00
PROVIDERS: PCP Family Medicine; Visit Provider Internal Medicine Medical Oncology
DX: Z79.01 Long term (current) use of 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 (principal)

== ENCOUNTER → 2024-11-17 13:00 | Outpatient (BNVA) | payer MEDICARE, SELFPAY | PROVIDERS: PCP Family Medicine; Visit Provider Internal Medicine Medical Oncology | DX: I26.99 Other pulmonary embolism without acute cor pulmonale (principal); Z79.01 Long term (current) use of 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; Z51.81 Encounter for therapeutic drug level monitoring | CPT/HCPCS: 85610; 99211 ==

== ENCOUNTER 2024-12-08 13:08 | Outpatient (AMB) | payer MEDICARE, SELFPAY ==
[2024-12-08 13:13] LABS: Prothrombin Time Whole Bld POC 33.7 sec (11.1-13.5); ~PT, ~INR - Anti Coag Clinic 2.8 (0.9-1.1)
--- NOTE | 2024-12-08 13:18 | MHC.OFFVISCO ---
Intake Intake Visit Reasons: Anticoagulation Allergies Benzodiazepines Adverse Reaction (Severe, Verified 12/08/24 13:09) Drowsy codeine Adverse Reaction (Severe, Verified 12/08/24 13:09) Drowsy loratadine Adverse Reaction (Mild, Verified 12/08/24 13:09) Nausea Medication List - Last Reconciled 12/08/24 by Aleshia Bradley, RN acetaminophen 650 mg PO Q4H PRN amlodipine 5 mg PO DAILY calcium carb-vit J1-Lx-xgnbgja caps PO DAILY levothyroxine 112 mcg PO DAILY sennosides (senna) 17.2 mg PO BEDTIME simethicone 180 mg PO QID simvastatin 20 mg PO QPM warfarin 5 mg See Protocol PO DAILY Nursing Note INR: 2.8 in therapeutic range Medications and supplements reviewed No changes in health, diet, medications, or supplements, Pt healing well post vag hyst- few more weeks of restriction but feels and looks well Denies any signs and symptoms of bleeding or bruising or clotting. Bleeding, bruising, clotting discussed Nutritional guidance given Dose: 5mg x 1 day/ 2.5mg x 6 days F/U INR: 1 month Patient verbalizes understanding of instructions given Anti-Coag Initial Assessment Social Hx Patient Tobacco Use Status: Former Tobacco user Tobacco use type: Cigarette Smoking packs per day: 3 alcohol intake: current Alcohol intake frequency: 0-2 drinks per day Cardiovascular Hx: HTN Lung Disease HX: DVT/PE Endocrine Hx: Thyroid Disease Musculoskeletal Hx: Arthritis, Osteoporosis and Gout Blood Disorder Hx: Hyperlipidemia Hx: Bladder Disorders Cancer HX: No Psych. Illness/Depression: No Coding Level of Care Code Est Patient Level 1 Diagnoses Current use of anticoagulant therapy Z79.01 Assessment & Plan Assessment & Plan (1) Current use of anticoagulant therapy: Code(s): Z79.01 - buttermilk drier 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 Category: Medical
--- OUTSIDE RECORDS SUMMARY | 2024-12-08 13:56 | XMS_ITS | Encounter Summary ---
Author Organization [employer] Address [address] 7[address] [place] [address] Care Team Providers Care Trash Hauler Name Role Phone [facility] Primary Care Provider +1 [phone] Encounter Details Date Type Department Care Team (Late st Contact Info) Description 12/16/2023 Orders Only [facility] [address] [place] [address] [place], [place], [facility] 70 [place] [address] Social History Tobacco Use Types Packs/Day Years [...] 01/01/2025 3:00 PM EDT Office Visit Jos[facility] 70 [place] [address] [place], [place] [facility] 70 [place] [address] documented as of this encounter Procedures Procedure Name Priority Date/Time Associated Diagnosis Comments PROTHROMBIN TIME-INR Routine 12/12/2023 11:59 AM EDT documented in this encounter Results * Prothrombin Time-INR (12/12/2023 11:59 AM EDT) Blood Venous blood specimen / Unknown [facility] LAB BLOOD ORDERABLES Taniya l Result documented in this encounter Visit Diagnoses Not on filedocumented in this encounter Care Teams Trash Hauler Relationship Specialty Start Date End Date [facility] [address] [place] [address] PCP - General Family Medicine 11/01/23 documented as of this encounter
--- OUTSIDE RECORDS SUMMARY | 2024-12-08 13:56 | XMS_ITS | Clinical Summary ---
Author Organization [facility] Address [address] [place] [address] Phone Care Team Providers Care Diesel Engineer Name Role Phone Gilma Hutson MD Primary [...] Overview (06/21/2023): While on HRT, dx at [facility] and transferred to [facility] for pulmonary thromboendarterectomy surgery. complicated by postsurgical [...] topic Medical Devices Not on file Insurance [employer] MEDICARE PART A & B [employer] MEDICARE PART A & B [employer] MEDICARE PART A & B [employer] MEDICARE PART A & B [employer] RE[employer] MEDICARE PART A & B [employer] [place] [id number] MEDICARE PART A & B [employer] MEDICARE PART A & B [employer] MEDICARE PART A & B [place] [employer] MEDICARE PART A & B Advance Directives For more information, please contact: [phone] (9AM - 5PM [facility], Saturday-Saturday) * Full Code (Latest Code Status on File) Date Activated Date Inactivated Comments 06/21/2023 9:46 PM Question Answer Comments Code Status Confirmed With: Patient Care Teams Diesel Engineer Relationship Specialty Start Date End Date Gilma Hutson MD [address] [place] [address] PCP - General Family Medicine 05/20/24 Additional Source Comments The information contained in this document represents components of the legal health record. It is not the complete legal health record.[facility]
== END 2024-12-08 13:20 | disposition home or self-care (01) ==
LOC: HO.ACS 13:08
PROVIDERS: PCP Family Medicine; Visit Provider Internal Medicine Medical Oncology
DX: Z79.01 Long term (current) use of 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 (principal)

== ENCOUNTER → 2024-12-08 13:08 | Outpatient (BNVA) | payer MEDICARE, SELFPAY | PROVIDERS: PCP Family Medicine; Visit Provider Internal Medicine Medical Oncology | DX: I26.99 Other pulmonary embolism without acute cor pulmonale (principal); Z51.81 Encounter for therapeutic drug level monitoring; Z79.01 Long term (current) use of 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 | CPT/HCPCS: 85610; 99211 ==

== ENCOUNTER 2025-01-13 07:22 | Outpatient (REF) | payer MEDICARE, SELFPAY ==
--- OUTSIDE RECORDS SUMMARY | 2025-01-13 07:25 | XMS_ITS | Encounter Summary ---
Author Organization [employer] Address [address] 7[address] [place] [address] Care Team Providers Care Dairy Technician Name Role Phone [facility] Primary Care Provider [phone] [phone] Encounter Details Date Type Department Care Team (Late st Contact Info) Description 01/20/2024 Orders Only [facility] [address] [place] [address] [place], [place], [facility] 70 [place] [address] Social History Tobacco Use Types Packs/Day Years [...] Care Team (Late st Contact Info) Description 06/30/2025 10:20 AM EST Office Visit Joselin [facility] 70 [place] [address] [place], [place] [facility] 70 [place] [address] documented as of this encounter Procedures Procedure Name Priority Date/Time Associated Diagnosis Comments PROTHROMBIN TIME-INR Routine 01/20/2024 11:43 AM EDT documented in this encounter Results * Prothrombin Time-INR (01/20/2024 11:43 AM EDT) Blood Venous blood specimen / Unknown [facility] LAB BLOOD ORDERABLES Taniya l Result documented in this encounter Visit Diagnoses Not on filedocumented in this encounter Care Teams Dairy Technician Relationship Specialty Start Date End Date Alejandrina Keith FNP [address] [place] [address] PCP - General Family Medicine 11/01/23 documented as of this encounter
--- OUTSIDE RECORDS SUMMARY | 2025-01-13 07:25 | XMS_ITS | Clinical Summary ---
Author Organization [employer] Address [address] [place] [address] 7t [place] [address] Care Team Providers Care Electronic Data Interchange Specialist Name Role Phone Alejandrina Keith [facility] Primary Care Provider [phone] [phone] Allergies Active Allergy Reactions Criticality Noted Date Comments Benzodiazepines Unknown 05/06/2001 Codeine Unknown 05/06/2001 Loratadine Itching 06/28/2022 Medications warfarin (Coumadin) 5 MG tablet Take 5 mg by mouth Once per day. MF 5 mg , all other days 2.5 mg 10/16/19 23 Active Calcium Carb-Cholecalcifer ol (Oyster Shell Calcium w/D) 500-5 MG-MCG tablet Take 1 tablet by mouth. Active levothyroxine (Synthroid, Levoxyl) 112 MCG tabletIndications: [...] not swallow. 1 each 06/26/19 25 Active Additional Information Patient not taking.Reported on 01/01/2025 amLODIPine (Norvasc) 5 MG tabletIndications: Primary hypertension TAKE 1 TABLET BY MOUTH ONCE DAILY 100 tablet 3 08/14/19 25 Active albuterol 108 (90 Base) MCG/ACT inhalerIndications :Bronchitis Inhale 2 puffs every 6 (six) hours if needed for wheezing or shortness of breath. 18 g 10/07/19 25 Active Additional Information Patient not taking.Reported on 01/01/2025 Multiple Vitamins-Minerals (MULTIVITAMIN ADULT, MINERALS, PO) 0 Refills, Maintenance, 07/24/24 9:09:00 AM EDT, Partial fill upon patient request if the prescription is for a schedule II opioid drug. 07/25/19 25 Active Active Problems Problem Noted Date Diagnosed Date Nonrheumatic aortic valve stenosis 01/06/[address] of the chest 01/06/2025 Primary hypertension 01/02/2025 Uterine prolapse 12/05/2023 Bilateral lower extremity edema 12/05/2023 Presence of IVC filter 07/04/2023 History of pulmonary embolism 02/11/2020 Anticoagulated on warfarin 03/28/2015 Hypothyroidism 07/29/2013 Overview (12/05/2023): Hypothyroidism Hyperlipidemia 07/29/2013 Overview (12/05/2023): Hyperlipidemia Resolved Problems Problem Noted Date Diagnosed Date Resolved Date Pessary maintenance 12/05/2023 06/26/19 Deep vein thrombosis (DVT) of lower extremity 05/14/19 23 12/05/2023 Pulmonary emboli 10/15/2013 12/05/2023 Overview (12/05/2023): History of extensive pulmonary emboli 2002 causing pulmonary hypertension which resolved. The patient had been transferred to [facility] from [facility] for further care and was then flown to [facility] in [place], [place] where she had an open chest surgery for endarterectomies of the aorta and bilateral pulmonary vasculature. She was seen in followup at [facility] for 4 years Off cOumadin since 09/2013,ON Xarelto Bilateral sensorineural hearing loss 09/30/2013 12/05/2023 Overview (12/05/2023): Sensorineural Hearing Loss In Both Ears Encounters Date Type Department Care Team Description 01/06/2025 2:00 PM EDT Telemedicine [facility] [address] [place] [address] Alejandrina Keith FNP Abnormal CT of the chest (Primary Dx); Nonrheumatic aortic valve stenosis 01/04/2025 Orders Only [facility] [address] [place] [address] Alejandrina Keith FNP 01/01/2025 3:00 PM EDT Office Visit [facility] 70 [place] [address] [facility] Acquired hypothyroidism (Primary Dx); Primary hypertension; Hyperlipidemia, unspecified hyperlipidemia type; History of pulmonary embolism; Anticoagulated on warfarin; S/P hysterectomy from Last 3 Months Immunizations Immunization Administration Dates Next Due Influenza High-dose Quadriva [...] 1 966 - 1975 Smokeless Tobacco: Never Tobacco Cessation:Counseling Given: Not Answered Alcohol Use Standard Drinks/Week Comments Yes 7 (1 standard drink = 0.6 oz pur e alcohol) Alcohol Answer Date Recorded How often do you have a drink containing alcohol ? 1 01/01/2025 How many drinks containing a lcohol do you have on a typical day when you are drinking? 0 01/01/2025 How often do you have six or more drinks on one occasion? 0 01/01/2025 Housing Stability Answer Date Recorded What is your housing situation today? I have bell roberson 01/01/[address] you li ve. Do you have problems with any of the following? None of the above 01/01/2025 Food Insecurity Answer Date Recorded Within the past 12 months, y ou worried that your food would run out before you got money to buy more: Never True 01/01/2025 Within the past 12 months,th e food you bought just didn't last and you didn't have enough money to get more: Never True 08/2024 Transportation Answer Date Recorded In the past 12 months, has l ack of transportation kept you from medical appts, meetings, work or from getting things needed for daily living? No 01/01/2025 Utilities Answer Date Recorded In the past 12 months, has t he electric, gas, oil or water company threatened to shut off services in your home? No 01/01/2025 Depression Answer Date Recorded Patient Health Questionnaire-2 Score 0 01/01/2025 Internet Access Answer Date Recorded Internet Access Q1 Yes 01/01/2025 Internet Access Q2 Not on file 01/01/2025 Education Answer Date Recorded What is the highest level of school you have completed or the highest degree you have received? Some college, no degree 01/01/2025 Comments No Sex and Gender Information Value Date Recorded Sex Assigned at Female 11/01/2023 12:09 PM EDT Legal Sex Female 12:05 PM EDT Gender Identity Female 11/01/2023 12:07 PM EDT Sexual Orientation Straight 11/01/2023 12 :09 PM EDT Last Filed Vital Signs Vital Sign Reading Time Taken Comments Blood Pressure 118/72 01/01/2025 2:55 PM EDT Pulse 82 01/01/2025 2:55 PM EDT Temperature 36.7 C (98.1 F) 01/01/2025 2:55 PM EDT Respiratory Rate 16 10/06/2024 9:51 AM EDT Oxygen Saturation 94% 01/01/2025 2:55 PM EDT Inhaled Oxygen Concentration - - Weight 69.4 kg (153 lb) 01/01/2025 2:55 PM EDT Height 162.6 cm (5' 4 ) 01/01/2025 2:55 PM EDT Body Mass Index 26.26 01/01/2025 2:55 PM EDT Plan of Treatment Upcoming Encounters Date Type Department Care Team (Late st Contact Info) Description 06/30/2025 10:20 AM EST Office Visit [facility] [address] [place] [address] Alejandrina Keith, WET MACHINE OPERATOR [address] [place] [address] Health Maintenance Due Date Last Done Comments RSV Patients and Patients Aged 60 years or older (1 - 1-dose 75+ series) 2017 COVID-19 Vaccine ( season) 2024 01/25/2023, 02/13/2022, 02/03/2021, Additional history exists Influenza Vaccine (#1) 2024 , 02/03/2021, 01/06/2020, Additional history exists Alcohol/Substance Use Screening 01/01/2026 01/01/2025 Depression Screening 01/01/2026 01/01/2025, 01/02/20 25 SDOH Screening 01/01/2026 01/01/2025 Tobacco Screening 01/06/2026 01/06/2025 DTaP/Tdap/Td Vaccines (2 - Td or Tdap) [...] patient's age to complete this topic Meningococcal B Vaccine Aged Out No l onger eligible based on patient's age to complete [...] Procedure Name Priority Date/Time Associated Diagnosis Comments CT CHEST WO CONTRAST Routine 10/20/2024 9:43 AM EDT TRANSTHORACIC ECHO (TTE) COMPLETE Routine 10/20/2024 9:42 AM EDT LIPID PANEL, STANDARD Routine 12/12/2023 Hyperlipidemia, unspecified hyperlipidemia type from Last 3 Months or Most Recently Relevant to Health Maintenance Results * CT Chest w/o Contrast (10/20/2024 9:43 AM EDT) Anatomical Region Laterality Modality Body, Chest Computed Tomogra phy [facility] CT PROCEDURES Final R esult * Transthoracic echo (TTE) complete (10/20/2024 9:42 AM EDT) [facility] CV ECHO PROCEDURES Final Result * Lipid Panel, Standard (12/12/2023) Blood Venous blood specimen / Unknown [facility] LAB BLOOD ORDERABLES Taniya l Result EXTERNAL LAB from Last 3 Months or Most Recently Relevant to Health Maintenance Insurance [employer] Care Teams Electronic Data Interchange Specialist Relationship Specialty Start Date End Date [facility] [address] [place] [address] PCP - General Family Medicine 11/01/23
--- OUTSIDE RECORDS SUMMARY | 2025-01-13 07:25 | XMS_ITS | Encounter Summary ---
Author Organization [employer] Address [address] 7t [place] [address] Care Team Providers Care Administrative Court Justice Name Role Phone [facility] Primary Care Provider [phone] [phone] Encounter Details Date Type Department Care Team (Late st Contact Info) Description 03/07/2024 Orders Only [facility] [address] [place] [address] [place], [place], [facility] 70 [place] [address] Social History Tobacco Use Types Packs/Day Years [...] 06/30/2025 10:20 AM EST Office Visit Joselin [facility] 70 [place] [address] [place], [place] [facility] 70 [place] [address] documented as of this encounter Procedures Procedure Name Priority Date/Time Associated Diagnosis Comments CULTURE, URINE, ROUTINE Routine 03/03/2024 7:57 AM EST documented in this encounter Results * Culture, Urine, Routine (03/03/2024 7:57 AM EST) Urine [facility] LAB MICROBIOLOGY - GENERA L ORDERABLES Final Result documented in this encounter Visit Diagnoses Not on filedocumented in this encounter Care Teams Administrative Court Justice Relationship Specialty Start Date End Date Alejandrina Keith [facility] [address] [place] [address] PCP - General Family Medicine 11/01/23 documented as of this encounter
--- OUTSIDE RECORDS SUMMARY | 2025-01-13 07:25 | XMS_ITS | Clinical Summary ---
Author Organization [facility] Address [address] [place] [address] Phone Care Team Providers Care Cable Repairer Name Role Phone Gilma Hutson MD Primary Care Provider [phone] Allergies Active Allergy Reactions Criticality Noted Date [...] Overview (06/21/2023): While on HRT, dx at [facility] and transferred to [facility] for pulmonary thromboendarterectomy surgery. complicated by postsurgical [...] 07/19/2023 07/18/2022, 02/27, 07/07/2020, Additional history exists INFLUENZA VACCINE (#1) 2024 , 01/06/2020, 01/04/2019, Additional history exists COVID-19 VACCINE ( season) 2024 02/13/2022, 02/03/2021, 07/15/2020, Additional history exists Adult [...] topic Medical Devices Not on file Insurance [place] [employer] MEDICARE PART A & B [place] [employer] MEDICARE PART A & B [place] [employer] MEDIC[place] [id number] MEDICARE PART A & B [place] [employer] RE[employer] MEDICARE PART A & [place] [address] [address] [place] [id number] MEDICARE PART A & B [place] [employer] RE[employer] MEDICARE PART A & B [place] [employer] MEDICARE PART A & B [place] [employer] MEDICARE PART A & B Advance Directives For more information, please contact: [phone] (9AM - 5PM [facility], Saturday-Saturday) * Full Code (Latest Code Status on File) Date Activated Date Inactivated Comments 06/21/2023 9:46 PM Question Answer Comments Code Status Confirmed With: Patient Care Teams Cable Repairer Relationship Specialty Start Date End Date Gilma Hutson MD [address] [place] [address] PCP - General Family Medicine 05/20/24 Additional Source Comments The information contained in this document represents components of the legal health record. It is not the complete legal health record.[facility]
--- OUTSIDE RECORDS SUMMARY | 2025-01-13 07:25 | XMS_ITS | Encounter Summary ---
Author Organization [employer] Address [address]t [place] [address] Care Team Providers Care Manager Of Production Name Role Phone [facility] Primary Care Provider [phone] Encounter Details Date Type Department Care Team (Late st Contact Info) Description 01/04/2025 Orders Only [facility] [address] [place] [address] [facility] Alejandrina, [facility] 70 [place] [address] Social History Tobacco Use Types Packs/Day Years [...] 06/30/2025 10:20 AM EST Office Visit Joselin [facility] [address] [place] [address] [facility] 70 [place] [address] documented as of this encounter Procedures Procedure Name Priority Date/Time Associated Diagnosis Comments CT CHEST WO CONTRAST Routine 10/20/2024 9:43 AM EDT TRANSTHORACIC ECHO (TTE) COMPLETE Routine 10/20/2024 9:42 AM EDT documented in this encounter Results * CT Chest w/o Contrast (10/20/2024 9:43 AM EDT) Anatomical Region Laterality Modality Body, Chest Computed Tomogra phy [facility] IMG CT PROCEDURES Final R esult * Transthoracic echo (TTE) complete (10/20/2024 9:42 AM EDT) [facility] CV ECHO PROCEDURES Final Result documented in this encounter Visit Diagnoses Not on filedocumented in this encounter Care Teams Manager Of Production Relationship Specialty Start Date End Date Alejandrina Keith FNP [address] [place] [address] PCP - General Family Medicine 11/01/23 documented as of this encounter
--- OUTSIDE RECORDS SUMMARY | 2025-01-13 07:25 | XMS_ITS | Encounter Summary ---
Author Organization [employer] Address [address] [place] [address] Care Team Providers Care Bore Miner Operator Name Role Phone Alejandrina Keith [facility] Primary Care Provider [phone] [phone] Encounter Details Date Type Department Care Team (Late st Contact Info) Description 01/02/2024 Orders Only [facility] [address] [place] [address] ProviderYahaira MD Social History Tobacco Use Types [...] 06/30/2025 10:20 AM EST Office Visit Joselin [facility] 70 [place] [address] [facility] 70 [place] [address] documented as of this encounter Procedures Procedure Name Priority Date/Time Associated Diagnosis Comments PROTHROMBIN TIME-INR Routine 12/31/2023 5:13 PM EDT documented in this encounter Results * Prothrombin Time-INR (12/31/2023 5:13 PM EDT) Blood Venous blood specimen / Unknown us Historical Provider LAB BLOOD ORDERABLES Taniya l Result documented in this encounter Visit Diagnoses Not on filedocumented in this encounter Care Teams Bore Miner Operator Relationship Specialty Start Date End Date [facility] [address] [place] [address] PCP - General Family Medicine 11/01/23 documented as of this encounter
--- OUTSIDE RECORDS SUMMARY | 2025-01-13 07:25 | XMS_ITS | Encounter Summary ---
Author Organization [employer] Address [address] [place] [address] Care Team Providers Care Aviation Project Engineer Name Role Phone [facility] Primary Care Provider [phone] [phone] Encounter Details Date Type Department Care Team (Late st Contact Info) Description 04/30/2024 Orders Only [place] [address] [place] [address] [place], [place], [facility] 70 [place] [address] Social History Tobacco Use Types Packs/Day Years [...] Description 06/30/2025 10:20 AM EST Office Visit [place] [facility] 70 [facility] [place] [address] [facility] 70 [place] [address] documented as of this encounter Procedures Procedure Name Priority Date/Time Associated Diagnosis Comments US PELVIC AND TRANSVAGINAL Routine 03/04/2024 11:08 AM EST documented in this encounter Results * US PELVIC AND TRANSVAGINAL (03/04/2024 11:08 AM EST) Anatomical Region Laterality Modality Ultrasound [facility] IM US PROCEDURES Final R esult documented in this encounter Visit Diagnoses Not on filedocumented in this encounter Care Teams Aviation Project Engineer Relationship Specialty Start Date End Date Alejandrina Keith FNP 70 [email or web address] [place] [address] PCP - General Family Medicine 11/01/23 documented as of this encounter
--- OUTSIDE RECORDS SUMMARY | 2025-01-13 07:25 | XMS_ITS | Encounter Summary ---
Author Organization [employer] Address [address] [place] [address] Care Team Providers Care Heat Treater Apprentice Name Role Phone [facility] Primary Care Provider [phone] Encounter Details Date Type Department Care Team (Late st Contact Info) Description 07/24/2024 Orders Only [place] [facility] [address] [place] [address] [place], [place], [facility] 70 [place] [address] Social History Tobacco Use Types Packs/Day Years [...] 06/30/2025 10:20 AM EST Office Visit Joselin [facility] [address] [place] [address] [place], [place] [facility] [address] [place] [address] documented as of this encounter Procedures Procedure Name Priority Date/Time Associated Diagnosis Comments PROTHROMBIN TIME-INR Routine 07/20/2024 11:01 AM EDT documented in this encounter Results * Prothrombin Time-INR (07/20/2024 11:01 AM EDT) Blood Venous blood specimen / Unknown [facility] LAB BLOOD ORDERABLES Taniya l Result documented in this encounter Visit Diagnoses Not on filedocumented in this encounter Care Teams Heat Treater Apprentice Relationship Specialty Start Date End Date Alejandrina Keith FNP [address] [place] [address] PCP - General Family Medicine 11/01/23 documented as of this encounter
--- OUTSIDE RECORDS SUMMARY | 2025-01-13 07:25 | XMS_ITS | Encounter Summary ---
Author Organization [employer] Address [address] [place] [address] Care Team Providers Care Shadowgraph Scale Operator Name Role Phone [facility] Primary Care Provider [phone] [phone] Encounter Details Date Type Department Care Team (Late st Contact Info) Description 12/16/2023 Orders Only [facility] [address] [place] [address] [place], [place], [facility] 70 [place] [address] Social History Tobacco Use Types Packs/Day Years [...] 06/30/2025 10:20 AM EST Office Visit [facility] [address] [place] [address] [facility] 70 [place] [address] documented as of this encounter Procedures Procedure Name Priority Date/Time Associated Diagnosis Comments PROTHROMBIN TIME-INR Routine 12/12/2023 11:59 AM EDT documented in this encounter Results * Prothrombin Time-INR (12/12/2023 11:59 AM EDT) Blood Venous blood specimen / Unknown [facility] LAB BLOOD ORDERABLES Taniya l Result documented in this encounter Visit Diagnoses Not on filedocumented in this encounter Care Teams Shadowgraph Scale Operator Relationship Specialty Start Date End Date [facility] 70 [place] [address] PCP - General Family Medicine 11/01/23 documented as of this encounter
[2025-01-13 08:33] LABS: Alanine Aminotransferase 21 U/L (0-31); Albumin Level 4.3 g/dL (3.5-5.0); Alkaline Phosphatase 84 U/L (39-117); Anion Gap 10 (12-20); Aspartate Amino Transferase 36 U/L (5-31); Blood Urea Nitrogen 9 mg/dL (9-16); Calcium 9.5 mg/dL (8.4-10.2); Carbon Dioxide 30 mmol/L (22-29); Chloride 106 mmol/L (96-108); Cholesterol 151 mg/dL (<200); Estimated Glomerular Filt Rate > 60; HDL Cholesterol 43 mg/dL (>40); Potassium 3.9 mmol/L (3.3-5.1); Sodium 142 mmol/L (135-145); Total Protein 6.9 g/dL (6.5-8.0); Triglycerides 133 mg/dL (<150)
[2025-01-13 09:10] LABS: Thyroid Stimulating Hormone 0.21 uIU/mL (0.32-4.0)
== END 2025-01-13 07:23 | disposition home or self-care (01) ==
LOC: HO.LAB 07:22
PROVIDERS: PCP Family Medicine; Visit Provider Nurse Practitioner
DX: E03.9 Hypothyroidism, unspecified (principal); Z51.81 Encounter for therapeutic drug level monitoring; Z79.899 Other long term (current) drug therapy; E78.5 Hyperlipidemia, unspecified
CPT/HCPCS: 36415; 80053; 80061; 84443; 85610; 99211

== ENCOUNTER 2025-01-13 08:02 | Outpatient (AMB) | payer MEDICARE, SELFPAY ==
[2025-01-13 08:08] LABS: Prothrombin Time Whole Bld POC 37.4 sec (11.1-13.5); ~PT, ~INR - Anti Coag Clinic 3.1 (0.9-1.1)
--- NOTE | 2025-01-13 08:13 | MHC.OFFVISCO ---
Intake Intake Visit Reasons: Anticoagulation Allergies Benzodiazepines Adverse Reaction (Severe, Verified 01/13/25 08:03) Drowsy codeine Adverse Reaction (Severe, Verified 01/13/25 08:03) Drowsy loratadine Adverse Reaction (Mild, Verified 01/13/25 08:03) Nausea Medication List - Last Reconciled 01/13/25 by Lindsay Melendez RN acetaminophen 650 mg PO Q4H PRN amlodipine 5 mg PO DAILY calcium carb-vit Q7-Dz-stkemtz caps PO DAILY levothyroxine 112 mcg PO DAILY sennosides (senna) 17.2 mg PO BEDTIME simethicone 180 mg PO QID simvastatin 20 mg PO QPM warfarin 5 mg See Protocol PO DAILY Nursing Note NO CP,SOB,DIET/MED CHANGES,FALLS OR SX OF BLEEDING. CONTINUE PRESENT DOSE AND FOLLOW-UP IN 4 WEEKS GOOD UNDERSTANDING OF DOSING INSTR. Anti-Coag Initial Assessment Social Hx Patient Tobacco Use Status: Former Tobacco user Tobacco use type: Cigarette Smoking packs per day: 3 alcohol intake: current Alcohol intake frequency: 0-2 drinks per day Cardiovascular Hx: HTN Lung Disease HX: DVT/PE Endocrine Hx: Thyroid Disease Musculoskeletal Hx: Arthritis, Osteoporosis and Gout Blood Disorder Hx: Hyperlipidemia Hx: Bladder Disorders Cancer HX: No Psych. Illness/Depression: No Coding Level of Care Code Est Patient Level 1 Diagnoses Current use of anticoagulant therapy Z79.01 Assessment & Plan Assessment & Plan (1) Current use of anticoagulant therapy: Code(s): Z79.01 - prison (current) use of 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 Category: Medical
== END 2025-01-13 08:15 | disposition home or self-care (01) ==
LOC: HO.ACS 08:02
PROVIDERS: PCP Family Medicine; Visit Provider Internal Medicine Medical Oncology
DX: Z79.01 Long term (current) use of 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 (principal)

== ENCOUNTER → 2025-02-15 13:03 | Outpatient (BNVA) | payer MEDICARE, SELFPAY | PROVIDERS: PCP Family Medicine; Visit Provider Internal Medicine Medical Oncology | DX: Z86.711 Personal history of pulmonary embolism (principal); Z51.81 Encounter for therapeutic drug level monitoring; Z79.01 Long term (current) use of 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 | CPT/HCPCS: 85610; 99211 ==

== ENCOUNTER 2025-03-16 13:00 | Outpatient (AMB) | payer MEDICARE, SELFPAY ==
[2025-03-16 13:10] LABS: Prothrombin Time Whole Bld POC 30.4 sec (11.1-13.5); ~PT, ~INR - Anti Coag Clinic 2.5 (0.9-1.1)
--- NOTE | 2025-03-16 13:16 | MHC.OFFVISCO ---
Intake Intake Visit Reasons: Anticoagulation Allergies Benzodiazepines Adverse Reaction (Severe, Verified 03/16/25 13:00) Drowsy codeine Adverse Reaction (Severe, Verified 03/16/25 13:00) Drowsy loratadine Adverse Reaction (Mild, Verified 03/16/25 13:00) Nausea Medication List - Last Reconciled 03/16/25 by Chasity Grullon, RN acetaminophen 650 mg PO Q4H PRN amlodipine 5 mg PO DAILY [CALCIUM WITH VITAMIN D3 PO] levothyroxine 100 mcg PO DAILY sennosides (senna) 17.2 mg PO BEDTIME simethicone 180 mg PO QID simvastatin 20 mg PO QPM warfarin 5 mg See Protocol PO DAILY Nursing Note INR: 2.5 in therapeutic range of 2-3 Medications and supplements reviewed No changes in health, diet, medications, or supplements, Denies any signs and symptoms of bleeding or bruising or clotting. Bleeding, bruising, clotting discussed Nutritional guidance given Dose: keep same dose of 2.5mg X 6 days and 5mg X 1 day (Sat) F/U INR: 4 weeks Patient verbalizes understanding of instructions with read back given Anti-Coag Initial Assessment Social Hx Patient Tobacco Use Status: Former Tobacco user Tobacco use type: Cigarette Smoking packs per day: 3 alcohol intake: current Alcohol intake frequency: 0-2 drinks per day Cardiovascular Hx: HTN Lung Disease HX: DVT/PE Endocrine Hx: Thyroid Disease Musculoskeletal Hx: Arthritis, Osteoporosis and Gout Blood Disorder Hx: Hyperlipidemia Hx: Bladder Disorders Cancer HX: No Psych. Illness/Depression: No Coding Level of Care Code Est Patient Level 1 Diagnoses Current use of anticoagulant therapy Z79.01 Assessment & Plan Assessment & Plan (1) Current use of anticoagulant therapy: Code(s): Z79.01 - [facility] (current) use of 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 Category: Medical
== END 2025-03-16 13:18 | disposition home or self-care (01) ==
LOC: HO.ACS 13:00
PROVIDERS: PCP Family Medicine; Visit Provider Internal Medicine Medical Oncology
DX: Z79.01 Long term (current) use of 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 (principal)

== ENCOUNTER → 2025-03-16 13:00 | Outpatient (BNVA) | payer MEDICARE, SELFPAY | PROVIDERS: PCP Family Medicine; Visit Provider Internal Medicine Medical Oncology | DX: Z86.711 Personal history of pulmonary embolism (principal); Z51.81 Encounter for therapeutic drug level monitoring; Z79.01 Long term (current) use of 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 | CPT/HCPCS: 85610; 99211 ==

== ENCOUNTER 2025-04-14 13:46 | Outpatient (AMB) | payer MEDICARE, SELFPAY ==
[2025-04-14 13:57] LABS: Prothrombin Time Whole Bld POC 27.4 sec (11.1-13.5); ~PT, ~INR - Anti Coag Clinic 2.3 (0.9-1.1)
--- NOTE | 2025-04-14 14:11 | MHC.OFFVISCO ---
Intake Intake Visit Reasons: Anticoagulation Allergies Benzodiazepines Adverse Reaction (Severe, Verified 04/14/25 13:51) Drowsy codeine Adverse Reaction (Severe, Verified 04/14/25 13:51) Drowsy loratadine Adverse Reaction (Mild, Verified 04/14/25 13:51) Nausea Medication List - Last Reconciled 04/14/25 by Lindsay Melendez RN acetaminophen 650 mg PO Q4H PRN amlodipine 5 mg PO DAILY [CALCIUM WITH VITAMIN D3 PO] levothyroxine 100 mcg PO DAILY sennosides (senna) 17.2 mg PO BEDTIME simethicone 180 mg PO QID simvastatin 20 mg PO QPM warfarin 5 mg See Protocol PO DAILY Nursing Note NO CP,SOB,DIET/MED CHANGES,FALLS OR SX OF BLEEDING. CONTINUE PRESENT DOSING AND FOLLOW-UP IN 4 WEEKS GOOD UNDERSTANDING OF DOSING INSTR. Anti-Coag Initial Assessment Social Hx Patient Tobacco Use Status: Former Tobacco user Tobacco use type: Cigarette Smoking packs per day: 3 alcohol intake: current Alcohol intake frequency: 0-2 drinks per day Cardiovascular Hx: HTN Lung Disease HX: DVT/PE Endocrine Hx: Thyroid Disease Musculoskeletal Hx: Arthritis, Osteoporosis and Gout Blood Disorder Hx: Hyperlipidemia Hx: Bladder Disorders Cancer HX: No Psych. Illness/Depression: No Coding Level of Care Code Est Patient Level 1 Diagnoses Current use of anticoagulant therapy Z79.01 Assessment & Plan Assessment & Plan (1) Current use of anticoagulant therapy: Code(s): Z79.01 - superintendent terminal (current) use of 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 Category: Medical
--- OUTSIDE RECORDS SUMMARY | 2025-04-14 18:19 | XMS_ITS | Encounter Summary ---
Author Organization [employer] Address [address] [place] [address] Care Team Providers Care Auto Haulaway Driver Name Role Phone [facility] Primary Care Provider [phone] [phone] Encounter Details Date Type Department Care Team (Late st Contact Info) Description 01/20/2024 Orders Only [facility] [address] [place] [address] [place], [place], [facility] 70 [place] [address] Social History Tobacco Use Types Packs/Day Years [...] 06/30/2025 10:20 AM EST Office Visit [facility] [address] [place] [address] [place], [place] [facility] 70 [place] [address] documented as of this encounter Procedures Procedure Name Priority Date/Time Associated Diagnosis Comments PROTHROMBIN TIME-INR Routine 01/20/2024 11:43 AM EDT documented in this encounter Results * Prothrombin Time-INR (01/20/2024 11:43 AM EDT) Blood Venous blood specimen / Unknown [facility] LAB BLOOD ORDERABLES Taniya l Result documented in this encounter Visit Diagnoses Not on filedocumented in this encounter Care Teams Auto Haulaway Driver Relationship Specialty Start Date End Date Alejandrina Keith FNP [address] [place] [address] PCP - General Family Medicine 11/01/23 documented as of this encounter
--- OUTSIDE RECORDS SUMMARY | 2025-04-14 18:19 | XMS_ITS | Encounter Summary ---
Author Organization [employer] Address [address] [place] [address] Care Team Providers Care Farm Facility Manager Name Role Phone [facility] Primary Care Provider [phone] [phone] Encounter Details Date Type Department Care Team (Late st Contact Info) Description 12/16/2023 Orders Only [place] [address] [place] [address] [place], [place], [facility] 70 [place] [address] Social History Tobacco Use Types Packs/Day Years [...] 06/30/2025 10:20 AM EST Office Visit [facility] 70 [place] [address] [facility] 70 [place] [address] documented as of this encounter Procedures Procedure Name Priority Date/Time Associated Diagnosis Comments PROTHROMBIN TIME-INR Routine 12/12/2023 11:59 AM EDT documented in this encounter Results * Prothrombin Time-INR (12/12/2023 11:59 AM EDT) Blood Venous blood specimen / Unknown [facility] LAB BLOOD ORDERABLES Taniya l Result documented in this encounter Visit Diagnoses Not on filedocumented in this encounter Care Teams Farm Facility Manager Relationship Specialty Start Date End Date [facility] 70 [place] [address] PCP - General Family Medicine 11/01/23 documented as of this encounter
--- OUTSIDE RECORDS SUMMARY | 2025-04-14 18:19 | XMS_ITS | Clinical Summary ---
Author Organization [facility] Address [address] [place] [address] Phone Care Team Providers Care Animal Handler Name Role Phone Gilma Hutson MD Primary [...] Overview (06/21/2023): While on HRT, dx at [facility] and transferred to [facility] for pulmonary thromboendarterectomy surgery. complicated by [...] 2 would also give DVT prophylaxis today Encounters Date Type Department Care Team Description 04/06/2025 Transcribe Orders Virtual Department [address] [place] [address] Alejandrina Keith NP Abnormal CT of the chest (Primary Dx) from Last 3 Months Immunizations Immunization Administration Dates Next Due COVID-19 [...] housing situation today? I have bell roberson 06/22/2023 How many times have you move [...] topic Medical Devices [place] [address] [employer] REPLACEMENT MEDICARE PART A & B Member Subscriber Plan / Payer (Ef fective 2007-Present) Name:Miya Muse Member ID:[id number] Relation to Subscriber:Self Name:Miya Muse Subscriber ID:[id number] Payer ID:[id number] Group ID:Not on file Type:Medicare Address: [employer] [address] [employer] MEDICARE REPLACEMENT MEDICARE PART A & B [employer]ARE REPLACEMENT MEDICARE PART A & B [employer] MED[employer]ARE REPLACEMENT MEDICARE PART A & B [employer] MEDICARE REPLACEMENT MEDICARE PART A & B [employer] REPLACEMENT MEDICARE PART A & B [employer] REPLAC[employer] MEDICARE PART A & B Member Subscriber Plan / Payer (Ef fective 2007-) Name:Miya Muse Member ID:[id number] Relation to Subscriber:Self Name:Miya Muse Subscriber ID:[id number] Payer ID:[id number] Group ID:Not on file Type:Medicare Address: [address] [employer] MED[employer]ARE REPLACEMENT MEDICARE PART A & B [employer] REPLAC[employer] MEDICARE PART A & B Advance Directives For more information, please contact: [phone] (9AM - 5PM [facility], Saturday-Saturday) * Full Code (Latest Code Status on File) Date Activated Date Inactivated Comments 06/21/2023 9:46 PM Question Answer Comments Code Status Confirmed With: Patient Care Teams Animal Handler Relationship Specialty Start Date End Date Gilma Hutson MD [address] [place] [address] [place] [address] PCP - General Family Medicine 05/20/24 Additional Source Comments The information contained in this document represents components of the legal health record. It is not the complete legal health record.[facility]
--- OUTSIDE RECORDS SUMMARY | 2025-04-14 18:19 | XMS_ITS | Encounter Summary ---
Author Organization [employer] Address [address] [place] [address] Care Team Providers Care Metalsmith Apprentice Name Role Phone [facility] Primary Care Provider [phone] [phone] Encounter Details Date Type Department Care Team (Late st Contact Info) Description 01/04/2025 Orders Only [facility] [address] [place] [address] [facility] Alejandrina, [facility] 70 [place] [address] Social History Tobacco Use Types Packs/Day Years [...] 06/30/2025 10:20 AM EST Office Visit Joselin [facility] 70 [place] [address] [facility] 70 [place] [address] documented as of this encounter Procedures Procedure Name Priority Date/Time Associated Diagnosis Comments CT CHEST WO CONTRAST Routine 10/20/2024 9:43 AM EDT TRANSTHORACIC ECHO (TTE) COMPLETE Routine 10/20/2024 9:42 AM EDT documented in this encounter Results * CT Chest w/o Contrast (10/20/2024 9:43 AM EDT) Anatomical Region Laterality Modality Body, Chest Computed Tomogra phy [facility] IMG CT PROCEDURES Final R esult * Transthoracic echo (TTE) complete (10/20/2024 9:42 AM EDT) [facility] CV ECHO PROCEDURES Final Result documented in this encounter Visit Diagnoses Not on filedocumented in this encounter Care Teams Metalsmith Apprentice Relationship Specialty Start Date End Date Alejandrina Keith FNP [address] [place] [address] PCP - General Family Medicine 11/01/23 documented as of this encounter
--- OUTSIDE RECORDS SUMMARY | 2025-04-14 18:19 | XMS_ITS | Encounter Summary ---
Author Organization [employer] Address [address] [place] [address] Care Team Providers Care Motor Brakeman Name Role Phone Alejandrina Keith [facility] Primary Care Provider [phone] [phone] Encounter Details Date Type Department Care Team (Late st Contact Info) Description 01/02/2024 Orders Only [place] [facility] [address] [place] [address] ProviderYahaira MD Social History Tobacco Use Types [...] 10:20 AM EST Office Visit Joselin [facility] 70 [place] [address] [facility] 70 [place] [address] documented as of this encounter Procedures Procedure Name Priority Date/Time Associated Diagnosis Comments PROTHROMBIN TIME-INR Routine 12/31/2023 5:13 PM EDT documented in this encounter Results * Prothrombin Time-INR (12/31/2023 5:13 PM EDT) Blood Venous blood specimen / Unknown us Historical Provider LAB BLOOD ORDERABLES Taniya l Result documented in this encounter Visit Diagnoses Not on filedocumented in this encounter Care Teams Motor Brakeman Relationship Specialty Start Date End Date [facility] 70 [place] [address] PCP - General Family Medicine 11/01/23 documented as of this encounter
--- OUTSIDE RECORDS SUMMARY | 2025-04-14 18:19 | XMS_ITS | Encounter Summary ---
Author Organization [employer] Address [address] [place] [address] Care Team Providers Care Headwaitress Name Role Phone [facility] Primary Care Provider [phone] [phone] Encounter Details Date Type Department Care Team (Late st Contact Info) Description 07/24/2024 Orders Only [facility] [address] [place] [address] [place], [place], [facility] 70 [place] [address] Social History Tobacco Use Types Packs/Day Years [...] 06/30/2025 10:20 AM EST Office Visit Joselin [facility] 70 [place] [address] [place], [place] [facility] 70 [place] [address] documented as of this encounter Procedures Procedure Name Priority Date/Time Associated Diagnosis Comments PROTHROMBIN TIME-INR Routine 07/20/2024 11:01 AM EDT documented in this encounter Results * Prothrombin Time-INR (07/20/2024 11:01 AM EDT) Blood Venous blood specimen / Unknown [facility] LAB BLOOD ORDERABLES Taniya l Result documented in this encounter Visit Diagnoses Not on filedocumented in this encounter Care Teams Headwaitress Relationship Specialty Start Date End Date Alejandrina Keith FNP [address] [place] [address] PCP - General Family Medicine 11/01/23 documented as of this encounter
--- OUTSIDE RECORDS SUMMARY | 2025-04-14 18:19 | XMS_ITS | Encounter Summary ---
Author Organization [employer] Address [address] [facility] [address] 7t [place] [address] Care Team Providers Care Breaker Mechanic Name Role Phone [facility] Primary Care Provider [phone] [phone] Reason for Visit * Reason Onset Date Comments [facility] Authorization 04/02/2025 Encounter Details Date Type Department Care Team (Late st Contact Info) Description 04/02/2025 Telephone [facility] [address] [place] [address] [place], [place], [facility] 70 [place] [address] [facility] Authorization Social History Tobacco Use Types Packs/Day Years [...] your housing situation today? I have bell da 01/01/[address] you li [...] encounter Miscellaneous Notes * Telephone Encounter - Mirian Harris - 04/02/2025 9:03 AM EST Adriano from the prior authorization department with [employer] called on behalf of patient and left a voicemail for Gilma Hutson. She states that the authorization request code [id number] that was submitted 03/31 is actually not processed with [employer]. It is instead processed with [employer] which is their vendor for high-tech radiology that requires pre authorization. Adriano requests that a new request is submitted to [employer]. [employer] number: [phone] Fax: Website: [facility] documented in this encounter Plan of Treatment Upcoming Encounters Date Type Department Care Team (Late st Contact Info) Description 06/30/2025 10:20 AM EST Office Visit [facility] [address] [place] [address] Alejandrina Keith FNP [address] [place] [address] documented as of this encounter Visit Diagnoses Not on filedocumented in this encounter Care Teams Breaker Mechanic Relationship Specialty Start Date End Date Alejandrina Keith FNP [address] [place] [address] PCP - General Family Medicine 11/01/23 documented as of this encounter
--- OUTSIDE RECORDS SUMMARY | 2025-04-14 18:20 | XMS_ITS | Encounter Summary ---
Author Organization [employer] Address [address] [place] [address] Care Team Providers Care Milling Machine Set Up Operator Name Role Phone [facility] Primary Care Provider [phone] [phone] Encounter Details Date Type Department Care Team (Late st Contact Info) Description 04/30/2024 Orders Only [place] [facility] [address] [place] [address] [place], [place], [facility] 70 [place] [address] Social History Tobacco Use Types Packs/Day Years [...] Description 06/30/2025 10:20 AM EST Office Visit [place] [facility] [address] [facility] [place] [address] [facility] [address] [place] [address] documented as of this encounter Procedures Procedure [...] on filedocumented in this encounter Care Teams Milling Machine Set Up Operator Relationship Specialty Start Date End Date Alejandrina Keith FNP 70 [facility] [place] [address] PCP - General Family Medicine 11/01/23 documented as of this encounter
--- OUTSIDE RECORDS SUMMARY | 2025-04-14 18:20 | XMS_ITS | Clinical Summary ---
Author Organization [employer] Address [address] [place] [address] [address] [place] [address] Care Team Providers Care Cone Machine Operator Name Role Phone Alejandrina Keith [facility] Primary Care Provider [phone] Allergies Active Allergy Reactions Criticality Noted Date Comments Benzodiazepines Unknown 05/06/2001 Codeine Unknown 05/06/2001 Loratadine Itching 06/28/2022 Medications warfarin (Coumadin) 5 MG tablet Take 5 mg by mouth Once per day. MF 5 mg , all other days 2.5 mg 023 Active Calcium Carb-Cholecalcife rol (Oyster Shell Calcium w/D) 500-5 MG-MCG tablet Take 1 tablet by mouth. Active simvastatin (Zocor) 20 MG tabletIndications :Hyperlipidemia, unspecified hyperlipidemia type Take 1 tablet (20 mg) by mouth in the evening. 100 tablet 3 025 Active fluticasone furoate (Arnuity Ellipta) 100 MCG/ACT inhalerIndication s:Subacute cough Inhale 1 puff Once per day. Rinse mouth with water after use to reduce aftertaste and incidence of candidiasis. Do not swallow. 1 each 025 Active Additional Information Patient not taking.Reported on 01/01/2025 amLODIPine (Norvasc) 5 MG tabletIndications :Primary hypertension TAKE 1 TABLET BY MOUTH ONCE DAILY 100 tablet 3 025 Active albuterol 108 (90 Base) MCG/ACT inhalerIndication s:Bronchitis Inhale 2 puffs every 6 (six) hours if needed for wheezing or shortness of breath. 18 g 025 Active Additional Information Patient not taking.Reported on 01/01/2025 Multiple Vitamins-Minerals (MULTIVITAMIN ADULT, MINERALS, PO) 0 Refills, Maintenance, 07/24/24 9:09:00 AM EDT, Partial fill upon patient request if the prescription is for a schedule II opioid drug. Active levothyroxine (Synthroid, Levoxyl) 100 MCG tabletIndications :Acquired hypothyroidism Take 1 tablet (100 mcg) by mouth before breakfast. 100 tablet 3 Active levothyroxine (Synthroid, Levoxyl) 100 MCG tabletIndications :Acquired hypothyroidism Take 1 tablet (100 mcg) by mouth Once per day. 90 tablet 025 2024 Discontinued Active Problems Problem Noted Date Diagnosed Date Nonrheumatic aortic valve stenosis 01/06/[address] of the chest 01/06/2025 Primary hypertension 01/02/2025 Uterine prolapse 12/05/2023 Bilateral lower extremity edema 12/05/2023 Presence of IVC filter 07/04/2023 History of pulmonary embolism 02/11/2020 Anticoagulated on warfarin 03/28/2015 Hypothyroidism 07/29/2013 Overview (12/05/2023): Hypothyroidism Assessment & Plan (01/21/2025 12:37 PM EDT): Overtreated. Asymptomatic. Decrease levothyroxine to 100 mcg. Check TSH and free T4 in 6 weeks. Orders: levothyroxine (Synthroid, Levoxyl) 100 MCG tablet; Take 1 tablet (100 mcg) by mouth Once per day. TSH; Future T4, Free; Future Hyperlipidemia 07/29/2013 Overview (12/05/2023): Hyperlipidemia Resolved Problems Problem Noted Date Diagnosed Date Resolved Date Pessary maintenance 12/05/2023 06/26/19 25 Deep vein thrombosis (DVT) of lower extremity 05/14/19 23 12/05/2023 Pulmonary emboli (CMS/HCC) 10/15/2013 0 12/05/2023 Overview (12/05/2023): History of extensive pulmonary emboli 2002 causing pulmonary hypertension which resolved. The patient had been transferred to [facility] from [facility] for further care and was then flown to [facility] in [place], [place] where she had an open chest surgery for endarterectomies of the aorta and bilateral pulmonary vasculature. She was seen in followup at [facility] for 4 years Off cOumadin since 09/2013,ON Xarelto Bilateral sensorineural hearing loss 09/30/2013 12/05/2023 Overview (12/05/2023): Sensorineural Hearing Loss In Both Ears Encounters Date Type Department Care Team Description 04/02/[address] [address] [facility] Authorization 04/01/2025 Telephone [facility] [address] [place] [address] [place], [place] [facility] Lab work 03/17/2025 Refill [facility] [address] [place] [address] [facility] Acquired hypothyroidism (Primary Dx) 03/16/[address] [address] [facility] Blood Test 01/21/2025 12:00 PM EDT Telemedicine [address] [address] [place], [place] [facility] Acquired hypothyroidism (Primary Dx) 01/21/2025 Results Follow-Up [address] [address] [place], [place] [facility] TSH, Comprehensive Metabolic Panel, Lipid Panel, Standard from Last 3 Months Immunizations Immunization Administration [...] 06/30/2025 10:20 AM EST Office Visit [facility] [address] [place] [address] [place], [place], [facility] [address] [place] [address] Health Maintenance Due Date Last Done Comments RSV Patients and Patients Aged 60 years or older (1 - 1-dose 75+ series) 2017 COVID-19 Vaccine ( season) 2024 01/25/2023, 02/13/2022, 02/03/2021, Additional history exists Influenza Vaccine (#1) 2024 , 02/03/2021, 01/06/2020, Additional history exists Alcohol/Substance Use Screening 01/01/2026 01/01/2025 Depression Screening 01/01/2026 01/01/2025, 01/02/20 SDOH Screening 01/01/2026 01/01/2025 Tobacco Screening 01/21/2026 01/21/2025 DTaP/Tdap/Td Vaccines (2 - Td or Tdap) 02/29/2028 02/28/2018, 05/06/2008, 03/29/2005 Lipid Panel 01/13/2030 01/13/2025, 12/12/2023 Pneumococcal Vaccine: 50+ Years Completed 01/30/2018, [...] Associated Diagnosis Comments LIPID PANEL, STANDARD Routine 01/13/2025 Hyperlipidemia, unspecified hyperlipidemia type COMPREHENSIVE METABOLIC PANEL Routine 01/13/2025 Primary hypertension TSH Routine 01/13/2025 Acquired hypothyroidism from Last 3 Months Results * TSH (01/13/2025) Blood Venous blood specimen / Unknown [facility] LAB BLOOD ORDERABLES Taniya l Result EXTERNAL LAB * Lipid Panel, Standard (01/13/2025) Blood Venous blood specimen / Unknown [facility] LAB BLOOD ORDERABLES Taniya l Result EXTERNAL LAB * Comprehensive Metabolic Panel (01/13/2025) Blood Venous blood specimen / Unknown [facility] LAB BLOOD ORDERABLES Taniya l Result EXTERNAL LAB from Last 3 Months Insurance [employer] Care Teams Cone Machine Operator Relationship Specialty [facility] Date [facility] Date [facility] [place] [address] PCP - General Family Medicine 11/01/23
--- OUTSIDE RECORDS SUMMARY | 2025-04-14 18:20 | XMS_ITS | Encounter Summary ---
Author Organization [employer] Address [address] [place] [address] Care Team Providers Care Classifier Name Role Phone Helen Devos [facility] Primary Care Provider [phone] Encounter Details Date Type Department Care Team (Late st Contact Info) Description 03/07/2024 Orders Only [facility] [address] [place] [address] [place], [place], [facility] [address] [place] [address] Social History Tobacco Use Types Packs/Day Years [...] 06/30/2025 10:20 AM EST Office Visit [facility] [address] [place] [address] [place], [place] [facility] [address] [place] [address] documented as of this encounter Procedures Procedure Name Priority Date/Time Associated Diagnosis Comments CULTURE, URINE, ROUTINE Routine 03/03/2024 7:57 AM EST documented in this encounter Results * Culture, Urine, Routine (03/03/2024 7:57 AM EST) Urine [facility] LAB MICROBIOLOGY - GENERA L ORDERABLES Final Result documented in this encounter Visit Diagnoses Not on filedocumented in this encounter Care Teams Classifier Relationship Specialty Start Date End Date Alejandrina Keith [facility] [address] [place] [address] PCP - General Family Medicine 11/01/23 documented as of this encounter
== END 2025-04-14 14:14 | disposition home or self-care (01) ==
LOC: HO.ACS 13:46
PROVIDERS: PCP Family Medicine; Visit Provider Internal Medicine Medical Oncology
DX: Z79.01 Long term (current) use of 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 (principal)

== ENCOUNTER → 2025-04-14 13:46 | Outpatient (BNVA) | payer MEDICARE, SELFPAY | PROVIDERS: PCP Family Medicine; Visit Provider Internal Medicine Medical Oncology | DX: I26.99 Other pulmonary embolism without acute cor pulmonale (principal); Z51.81 Encounter for therapeutic drug level monitoring; Z79.01 Long term (current) use of 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; E03.9 Hypothyroidism, unspecified | CPT/HCPCS: 36415; 84439; 84443; 85610; 99211 ==

== ENCOUNTER 2025-04-14 14:32 | Outpatient (REF) | payer MEDICARE, SELFPAY ==
[2025-04-14 16:22] LABS: Free T4 (Free Thyroxine) 1.19 ng/dL (0.71-1.85); Thyroid Stimulating Hormone 2.22 uIU/mL (0.32-4.0)
== END 2025-04-14 14:33 | disposition home or self-care (01) ==
LOC: HO.LAB 14:32
PROVIDERS: PCP Family Medicine; Visit Provider Nurse Practitioner
DX: E03.9 Hypothyroidism, unspecified (principal)
CPT/HCPCS: 36415; 84439; 84443